=== PATIENT | female | born 1945 | race Caucasian/White ===

== ENCOUNTER 2017-04-09 12:32 | Inpatient (IN) | payer MEDICARE ==
[2017-04-09] MEDS ORDERED: Ketorolac 30 MG/ML SDV ONE (13:13)
[2017-04-09] MEDS ORDERED: Ketorolac 30 MG/ML SDV IVPUSH ONE (13:21)
[2017-04-09] MEDS ORDERED: Ondansetron 4 MG/2 ML SDV IVPUSH ONE (13:21)
[2017-04-09] MEDS ORDERED: Ondansetron 4 MG/2 ML SDV ONE (13:23)
[2017-04-09] MEDS ORDERED: HYDROmorphone 2 MG/ML Syringe IVPUSH ONE ×2 (16:00→16:16)
[2017-04-09] MEDS ORDERED: HYDROmorphone 2 MG/ML Syringe IV PRN (16:13)
[2017-04-09] MEDS ORDERED: Sodium Chloride 0.9% 10 ML Syringe FLUSH PRN (16:13)
[2017-04-09] MEDS ORDERED: Sodium Chloride 0.9% 500 ML IV SCH (16:15)
[2017-04-09] MEDS: Ondansetron 4 MG/2 ML SDV IV PRN ×2 (16:45→22:10)
--- NOTE | 2017-04-09 17:36 | PCM.HP ---
H&P History of Present Illness - General Date of Service: 04/09/17 Admit Problem/Dx: Admission Diagnosis/Problem Admission Diagnosis/Problem Pancreatitis Source of Information: Patient History Limitations: Reports: No Limitations - History of Present Illness Initial Comments - Free Text/Narative: This is a 71yo F who doctors in [place] here for left abdominal pain. Patient states the pain is of the left abdomen all the way down and states the pain is 10/10. She has a history of a pancreatic pseudocyst and has an appointment to obtain a stent of her Common bile duct due to narrowing. Patient states the pain is constant and does not believe it is exacerbated or improved by anything. She is allergic to multiple medications - please see faxed sheet from [place] clinic. She denies fever or chills. Duration of Symptoms: Reports: Day(s):, Getting Worse Location: Reports: Abdomen Quality: Reports: Ache Severity: Severe Improves with: Reports: None Worsens with: Reports: None Associated Symptoms: Reports: Loss of Appetite Left Lower Abdomen Pain Score (Numeric/FACES): 9 - Related Data Allergies/Adverse Reactions: Allergies Allergy/AdvReac Type Severity Reaction Status Date / Time albuterol Allergy Cannot Verified 03/03/15 22:32 Remember cephalexin monohydrate Allergy Cannot Verified 04/09/17 13:32 [From Keflex] Remember codeine Allergy Nausea and Verified 04/09/17 13:32 Vomiting morphine Allergy Difficulty Verified 04/09/17 13:32 Breathing Penicillins Allergy Cannot Verified 04/09/17 13:32 Remember rofecoxib [From Vioxx] Allergy Cannot Verified 03/03/15 22:32 Remember senna Allergy Cannot Verified 03/03/15 22:32 Remember valsartan [From Diovan] Allergy Vomiting Verified 03/03/15 22:32 Home Medications: Home Meds ALPRAZolam [Alprazolam] 1 mg PO BEDTIME 03/03/15 [History] Estrogen,Jennifer/Me-Testosterone [Estrogen-Methyltestosterone Tb] 1 mg PO DAILY [History] Lansoprazole [Lansoprazole] 30 mg PO BID 03/03/15 [History] Levothyroxine [Sythroid] 125 mcg PO DAILY 03/03/15 [History] Lisinopril [Lisinopril] 5 mg PO DAILY 03/03/15 [History] Methadone HCl [Methadone] 40 mg PO TID 03/03/15 [History] Ondansetron [Ondansetron] 4 mg PO TID 03/03/15 [History] Polyethylene Glycol 3350 [MiraLAX] 17 gm PO DAILY 03/03/15 [History] Verapamil HCl 80 mg PO TID 03/03/15 [History] Aspirin 325 mg PO DAILY 04/09/17 [History] Clindamycin HCl [Cleocin] 300 mg PO Q8H 04/09/17 [History] Doxycycline [Doxycycline Hyclate] 100 mg PO BID 04/09/17 [History] Ergocalciferol (Vitamin D2) [Vitamin D2] 50,000 units PO WEEKLY 04/09/17 [ History] Fish Oil/[place]-3 Fatty Acids [Fish Oil] 1 each PO DAILY 04/09/17 [History] Fluconazole [Diflucan] 150 mg PO BEDTIME 04/09/17 [History] Furosemide 20 mg PO DAILY 04/09/17 [History] Hyoscyamine [Hyomax-SL] 0.125 mg SL Q4H PRN 04/09/17 [History] Ibuprofen 800 mg PO Q8H PRN 04/09/17 [History] Ipratropium [place] 0.2 mg IH QID 04/09/17 [History] Ipratropium [Atrovent HFA] 12.9 gm IH Q6H PRN 04/09/17 [History] Meclizine [Antivert] 25 mg PO Q6H PRN 04/09/17 [History] Potassium Chloride 20 meq PO TID 04/09/17 [History] Sertraline [Zoloft] 100 mg PO BEDTIME 04/09/17 [History] H&P Review of Systems - Review of Systems: Review Of Systems: ROS reveals no pertinent complaints other than HPI. Exam - Exam Exam: See Below - Vital Signs Vital Signs: Last Vital Signs Temp 36.9 C 04/09/17 12:37 Pulse 69 04/09/17 12:37 Resp 22 H 04/09/17 12:37 BP 191/84 H 04/09/17 12:37 Pulse Ox 98 04/09/17 12:37 Weight: 79.742 kg - Exam General: Alert, Oriented, Cooperative, Moderate Distress HEENT: PERRLA, EOMI Neck: Supple, Trachea Midline Lungs: Clear to Auscultation, Normal Respiratory Effort Cardiovascular: Regular Rate, Regular Rhythm Abdomen: Tenderness, Hypoactive Bowel Sounds Extremities: Normal Inspection Peripheral Pulses: 1+: Dorsalis Pedis (L), Dorsalis Pedis (R) Skin: Warm, Dry, Intact Neuro Extensive - Mental Status: Alert, Oriented x3 Psychiatric: Alert, Anxious - Patient Data Result Diagrams: 04/09/17 13:49 04/09/17 13:49 *Q Meaningful Use (ADM) - VTE *Q VTE Criteria *Q: - Stroke *Q Stroke Criteria *Q: - AMI *Q AMI Criteria *Q: - Problem List (1) Pancreatitis, acute SNOMED Code(s): 369030297 ICD Code: K85.90 - ACUTE PANCREATITIS WITHOUT NECROSIS OR INFECTION, UNSP Status: Acute Current Visit: Yes (2) Renal dysfunction Status: Acute Current Visit: Yes (3) Hyponatremia SNOMED Code(s): 85628174 ICD Code: E87.1 - HYPO-OSMOLALITY AND HYPONATREMIA Status: Acute Current Visit: Yes (4) UTI (urinary tract infection) SNOMED Code(s): 66779858 ICD Code: N39.0 - URINARY TRACT INFECTION, SITE NOT SPECIFIED Status: Suspected Priority: Medium Current Visit: Yes Qualifiers: Urinary tract infection type: site unspecified Hematuria presence: without hematuria Qualified Code(s): N39.0 - Urinary tract infection, site not specified Problem List Initiated/Reviewed/Updated: Yes Orders Last 24hrs: Active Orders 24 hr Category Date Time Status Intake and Output Strict [RC] ASDIRECTED Care 04/09/17 17:27 Ordered BASIC METABOLIC PANEL,BMP [CHEM] AM Lab 04/10/17 05:11 Ordered CBC WITH AUTO DIFF [HEME] AM Lab 04/10/17 05:11 Ordered LIPASE [CHEM] Routine Lab 04/10/17 05:11 Ordered Clindamycin Phosphate [Cleocin] 600 mg Med 04/09/17 17:30 Ordered Dextrose 5% in Water 50 ml IV Q8H Docusate Sodium/Sennosides [Senna Plus] Med 04/09/17 16:13 Active 1 tab PO BID PRN HYDROmorphone [Dilaudid] Med 04/09/17 16:13 Active 0.5 mg IV Q2H PRN Ondansetron [Zofran] Med 04/09/17 16:13 Active 4 mg IV Q4H PRN Sodium Chloride 0.9% [Normal Saline] 500 ml Med 04/09/17 16:15 Active IV ASDIRECTED Sodium Chloride 0.9% [Saline Flush] Med 04/09/17 16:13 Active 10 ml FLUSH ASDIRECTED PRN Peripheral IV Insertion Adult [OM.PC] Routine Oth 04/09/17 16:13 Ordered Medication Orders Hydromorphone HCl (Dilaudid) 0.5 mg IV Q2H PRN PRN Reason: Pain (severe 7-10) Sodium Chloride (Normal Saline) 500 mls @ 999 mls/hr IV ASDIRECTED LEX Last Admin: 04/09/17 17:25 Dose: 999 mls/hr Clindamycin Phosphate 600 mg/ (Dextrose/Water) 54 mls @ 150 mls/hr IV Q8H LEX Ondansetron HCl (Zofran) 4 mg IV Q4H PRN PRN Reason: Nausea/Vomiting Senna/Docusate Sodium (Senna Plus) 1 tab PO BID PRN PRN Reason: Constipation Sodium Chloride (Saline Flush) 10 ml FLUSH ASDIRECTED PRN PRN Reason: Keep Vein Open Assessment/Plan Comment:: Patient to be admitted for pancreatitis. [place] II score of 7. We will start aggressive fluid hydration, pain management, and nausea management. Clindamycin continued IV for leukocytosis. We will culture Urine for sensitivities. Monitor labs in am for hyponatremia and repeat WBC.
[2017-04-09] MEDS: HYDROmorphone 2 MG/ML Syringe IVPUSH PRN ×2 (17:40→21:00)
[2017-04-09] MEDS: Clindamycin Phosphate 600 MG in Dextrose 5% in Water 50 ML IV SCH ×2 (17:43)
[2017-04-09] MEDS ORDERED: IPRATROPIUM IH PRN (17:49)
[2017-04-09] MEDS ORDERED: HYOSCYAMINE 0.125 MG SL PRN (17:49)
--- NOTE | 2017-04-09 17:49 | CT ---
DATE OF SERVICE: 04/09/17 CLINICAL DATA: abd pain UNENHANCED ABDOMEN AND PELVIC CT: Multislice acquisition through the abdomen and pelvis without IV or oral contrast was performed. Comparison is made to a prior abdomen and pelvic CT dated 06/18/13. There are linear densities in both lower lungs consistent with linear atelectasis or fibrosis. There is a small hernia within the left hemidiaphragm containing fat. The liver is normal size. The gallbladder is absent. There is gas within the biliary tree. Correlate with surgical or procedure history. The spleen appears normal. The pancreas is abnormal. The pancreas is normal size. There is, however, fairly extensive peripancreatic fat stranding consistent with pancreatitis. No evidence of pancreatic abscess. The right and left adrenals appear normal. The right and left kidneys demonstrate nonobstructing renal calculi bilaterally. The kidneys otherwise appear normal. No hydronephrosis or hydroureter. No evidence of ureterolithiasis. The bladder is partially fluid-filled and appears normal. There are calcifications within the pelvis that are most likely vascular. The appendix is not dilated. No evidence of appendicitis. There is a moderate amount of stool noted within the ascending and transverse colon. No free air. No free fluid. No dilated loops of bowel. No adenopathy. No aortic aneurysm. The patient is status post hysterectomy. There is a small umbilical hernia containing fat. No other significant findings. IMPRESSION: 1) Abnormal pancreas with peripancreatic fat stranding consistent with pancreatitis. 2) Status post cholecystectomy. Gas within the biliary tree. This may be related to a prior procedure or prior surgery. Correlation with the patient's history is recommended. 3) Large amount of stool noted within the ascending and transverse colon consistent with constipation. 4) Bilateral nonobstructing renal calculi. [id number] [facility]
[2017-04-09] MEDS: Verapamil 120 MG Tab.ER PO SCH (18:30)
[2017-04-09] MEDS: Meperidine PF 50 MG/ML Syringe IVPUSH PRN ×3 (19:49→23:40)
[2017-04-09] MEDS: Ketorolac 30 MG/ML SDV IVPUSH SCH (19:50)
[2017-04-09] MEDS ORDERED: VERAPAMIL HCL 80 MG PO SCH (20:00)
[2017-04-09] MEDS ORDERED: Sertraline 100 MG Tab PO SCH (20:00)
[2017-04-09] MEDS ORDERED: ALPRAZOLAM 1 MG PO SCH (20:00)
[2017-04-09] MEDS ORDERED: ALPRAZolam 0.25 MG Tab ONE (20:56)
[2017-04-09] MEDS ORDERED: Potassium Chloride 20 MEQ Tab.ER ONE (20:56)
[2017-04-09] MEDS ORDERED: Acetaminophen 500 MG Tab PO PRN (21:00)
[2017-04-09] MEDS: LANSOPRAZOLE 30 MG PO SCH (21:09)
[2017-04-09] MEDS: Doxycycline 100 MG Cap PO SCH (21:09)
[2017-04-09] MEDS: Ipratropium 0.02% 0.5 MG/2.5 ML Neb Soln INH SCH (21:09)
[2017-04-09] MEDS: Non-Formulary Medication 1 Each (Potassium Chloride [Potassium Chloride] 20 MEQ) PO SCH (21:10)
[2017-04-09] MEDS ORDERED: Acetaminophen 500 MG Tab ONE (21:14)
[2017-04-09] MEDS: Sodium Chloride 0.9% 1,000 ML IV SCH (22:30)
[2017-04-10] MEDS: HYDROmorphone 2 MG/ML Syringe IVPUSH PRN (00:13)
[2017-04-10] MEDS: Sodium Chloride 0.9% 1,000 ML IV SCH ×3 (00:15→04:31)
[2017-04-10] MEDS: Ketorolac 30 MG/ML SDV IVPUSH SCH ×3 (00:55→12:15)
[2017-04-10] MEDS ORDERED: HYDROmorphone 4 MG/ML Syringe ONE (01:36)
[2017-04-10] MEDS ORDERED: HYDROmorphone/Normal Saline 15 MG/30 ML PCA IV SCH (02:00)
[2017-04-10] MEDS: Clindamycin Phosphate 600 MG in Dextrose 5% in Water 50 ML IV SCH ×4 (02:41→12:17)
[2017-04-10] MEDS: Ondansetron 4 MG/2 ML SDV IV PRN ×3 (03:10→10:15)
[2017-04-10] MEDS ORDERED: Metoclopramide 10 MG/2 ML SDV ONE (06:43)
[2017-04-10] MEDS ORDERED: Simethicone 80 MG Tab.Chew ONE (06:44)
[2017-04-10] MEDS ORDERED: Simethicone 80 MG Tab.Chew PO ONE (07:02)
[2017-04-10] MEDS ORDERED: Levothyroxine 100 MCG Tab PO SCH (08:00)
[2017-04-10] MEDS ORDERED: ESTROGEN ESTER PO SCH (08:00)
[2017-04-10] MEDS ORDERED: Polyethylene Glycol 3350 Powder 510 GM Bot PO SCH (08:00)
[2017-04-10] MEDS ORDERED: TESTOSTERONE PO SCH (08:00)
[2017-04-10] MEDS ORDERED: [UNRECOGNIZED DRUG - OTHER] PO SCH (08:00)
[2017-04-10] MEDS ORDERED: Furosemide 20 MG Tab PO SCH (08:00)
[2017-04-10] MEDS ORDERED: Lisinopril 5 MG Tab PO SCH (08:00)
[2017-04-10] MEDS ORDERED: Fish Oil/Omega-3 Fatty Acids 1 Gm Cap PO SCH (08:00)
[2017-04-10] MEDS ORDERED: Non-Formulary Medication 1 Each (Aspirin [Aspirin] 325 MG) PO SCH (08:00)
[2017-04-10] MEDS ORDERED: Verapamil 120 MG Tab.ER ONE (08:09)
[2017-04-10] MEDS ORDERED: Potassium Chloride 20 MEQ Tab.ER ONE (08:10)
[2017-04-10] MEDS ORDERED: Aspirin 325 MG Tab.EC ONE (08:10)
[2017-04-10] MEDS: Verapamil 120 MG Tab.ER PO SCH (08:32)
[2017-04-10] MEDS: Doxycycline 100 MG Cap PO SCH (08:32)
[2017-04-10] MEDS ORDERED: HYDROmorphone 2 MG/ML Syringe ONE (10:04)
[2017-04-10] MEDS ORDERED: Metoclopramide 10 MG/2 ML SDV IVPUSH ONE (10:50)
[2017-04-10] MEDS: Ipratropium 0.02% 0.5 MG/2.5 ML Neb Soln INH SCH ×2 (11:13→14:46)
[2017-04-10] MEDS ORDERED: Promethazine 12.5 MG in Sodium Chloride 0.9% 50 ML IV PRN (11:25)
[2017-04-10] MEDS: Non-Formulary Medication 1 Each (Potassium Chloride [Potassium Chloride] 20 MEQ) PO SCH (12:17)
[2017-04-10] MEDS: LANSOPRAZOLE 30 MG PO SCH (12:19)
[2017-04-10] MEDS ORDERED: Ketorolac 30 MG/ML SDV IVPUSH ONE (12:29)
[2017-04-10 12:34] VITALS: BP 120/78
--- NOTE | 2017-04-10 12:35 | PCM.DCSUM1 ---
Discharge Summary - Hospital Course Brief History: This is a 71yo F who was admitted for acute pancreatitis. Patient showed improvement of Lipase level but worsening of WBC with clinically worsening symptoms and pain despite increasing amounts of pain control. - Discharge Data Discharge Date: 04/10/17 Discharge Disposition: DC/Tfer to Acute Hospital 02 Condition: Serious - Discharge Diagnosis/Problem(s) (1) Pancreatitis, acute SNOMED Code(s): 487360713 ICD Code: K85.90 - ACUTE PANCREATITIS WITHOUT NECROSIS OR INFECTION, UNSP Status: Acute Priority: High Current Visit: Yes Qualifiers: Acute pancreatitis complication: infected necrosis (2) Renal dysfunction Status: Resolved Priority: Medium Current Visit: Yes (3) Hyponatremia SNOMED Code(s): 16391735 ICD Code: E87.1 - HYPO-OSMOLALITY AND HYPONATREMIA Status: Resolved Priority: Medium Current Visit: Yes (4) UTI (urinary tract infection) SNOMED Code(s): 65371194 ICD Code: N39.0 - URINARY TRACT INFECTION, SITE NOT SPECIFIED Status: Suspected Priority: Medium Current Visit: Yes Qualifiers: Urinary tract infection type: site unspecified Hematuria presence: without hematuria Qualified Code(s): N39.0 - Urinary tract infection, site not specified - Patient Instructions Diet: NPO - Discharge Plan Home Medications: Home Meds ALPRAZolam [Alprazolam] 1 mg PO BEDTIME 03/03/15 [History] Estrogen,Jennifer/Me-Testosterone [Estrogen-Methyltestosterone Tb] 1 mg PO DAILY [History] Lansoprazole [Lansoprazole] 30 mg PO BID 03/03/15 [History] Levothyroxine [Sythroid] 125 mcg PO DAILY 03/03/15 [History] Lisinopril [Lisinopril] 5 mg PO DAILY 03/03/15 [History] Methadone HCl [Methadone] 40 mg PO TID 03/03/15 [History] Ondansetron [Ondansetron] 4 mg PO TID 03/03/15 [History] Polyethylene Glycol 3350 [MiraLAX] 17 gm PO DAILY 03/03/15 [History] Verapamil HCl 80 mg PO TID 03/03/15 [History] Aspirin 325 mg PO DAILY 04/09/17 [History] Clindamycin HCl [Cleocin] 300 mg PO Q8H 04/09/17 [History] Doxycycline [Doxycycline Hyclate] 100 mg PO BID 04/09/17 [History] Ergocalciferol (Vitamin D2) [Vitamin D2] 50,000 units PO WEEKLY 04/09/17 [ History] Fish Oil/[place]-3 Fatty Acids [Fish Oil] 1 each PO DAILY 04/09/17 [History] Fluconazole [Diflucan] 150 mg PO BEDTIME 04/09/17 [History] Furosemide 20 mg PO DAILY 04/09/17 [History] Hyoscyamine [Hyomax-SL] 0.125 mg SL Q4H PRN 04/09/17 [History] Ibuprofen 800 mg PO Q8H PRN 04/09/17 [History] Ipratropium [place] 0.2 mg IH QID 04/09/17 [History] Ipratropium [Atrovent HFA] 12.9 gm IH Q6H PRN 04/09/17 [History] Meclizine [Antivert] 25 mg PO Q6H PRN 04/09/17 [History] Potassium Chloride 20 meq PO TID 04/09/17 [History] Sertraline [Zoloft] 100 mg PO BEDTIME 04/09/17 [History] Forms: ED Department Discharge, Return to Work/School Form Referrals: Sania Downs MD [Primary Care Provider] - - Discharge Summary/Plan Comment DC Time >30 min.: Yes Discharge Summary/Plan Comment: Patient transfer planning. [facility] refused transfer as they do not have GI surgery available. [facility] accepting Dr. Cox. Patient and counseled on transfer and concerns of increasing abdominal pain with possible pancreatic necrosis. Ativan to be given prior to departure as patient is very anxious and fears flying but agrees to flight. - Patient Data Vitals - Most Recent: Last Vital Signs Temp 35.5 C 04/10/17 08:00 Pulse 83 04/10/17 08:32 Resp 16 04/10/17 08:00 BP 127/50 L 04/10/17 08:34 Pulse Ox 99 04/10/17 08:00 Weight - Most Recent: 79.742 kg I&O - Last 24 hours: Intake & Output 04/09/17 04/10/17 04/10/17 22:59 06:59 14:59 Intake Total 30 4450 Output Total 2050 Balance 30 2400 Lab Results - Last 24 hrs: Laboratory Results - last 24 hr 04/10/17 04/10/17 Range/Units 07:10 07:10 WBC 30.6 H* (4.0-11.0) K/uL RBC 3.61 L (3.80-5.80) M/uL Hgb 11.5 (11.5-16.5) g/dL Hct 33.9 L (37.0-47.0) % MCV 94 (76-96) fL MCH 31.9 (27.0-32.0) pg MCHC 33.9 (31.0-35.0) g/dL RDW 14.6 (11.0-16.0) % Plt Count 166 D (150-500) K/uL MPV 8.6 (6.0-10.0) fL Neut % (Auto) 91.1 H (45.0-70.0) % Lymph % (Auto) 3.4 L (20.0-40.0) % [place] % (Auto) 4.6 (3.0-10.0) % Eos % (Auto) 0.8 L (1.0-5.0) % Baso % (Auto) 0.1 (0.0-0.5) % Neut # (Auto) 27.80 H (2.00-7.50) K/uL Lymph # (Auto) 1.05 L (1.50-4.00) K/uL [place] # (Auto) 1.42 H (0.20-0.80) K/uL Eos # (Auto) 0.25 (0.04-0.40) K/uL Baso # (Auto) 0.03 (0.02-0.10) K/uL Sodium 142 (136-145) mmol/L Potassium 3.8 (3.5-5.1) mmol/L Chloride 112 H (98-107) mmol/L Carbon Dioxide 20.4 L (21.0-32.0) mmol/L Anion Gap 13.4 (5.0-15.0) mmol/L BUN 16 D (8-26) mg/dL Creatinine 0.85 D (0.55-1.02) mg/dL Est Cr Clr Drug Dosing 50.22 mL/min Estimated GFR (MDRD) > 60 (>60) MLS/MIN BUN/Creatinine Ratio 18.8 (6-25) Glucose 75 D (74-100) mg/dL Calcium 7.5 L (8.5-10.1) mg/dL Magnesium 1.4 L (1.8-2.4) mg/dL Lipase 3245 H* D (73-393) U/L Med Orders - Current: Current Medications Acetaminophen (Tylenol Extra Strength) 1,000 mg PO Q4H PRN PRN Reason: Fever Last Admin: 04/09/17 22:00 Dose: 1,000 mg Alprazolam (Xanax) 1 mg PO BEDTIME [facility] Doxycycline Hyclate (Vibramycin) 100 mg PO BID [facility] Last Admin: 04/10/17 08:32 Dose: 100 mg Ergocalciferol (Vitamin D2) 50,000 units PO Q7D [facility] Fish Oil (Fish Oil) 1 gm PO DAILY [facility] Last Admin: 04/10/17 08:33 Dose: 1 gm Furosemide (Lasix) 20 mg PO DAILY [facility] Last Admin: 04/10/17 08:32 Dose: 20 mg Hydromorphone HCl (Dilaudid [place] 15 Mg In Ns 30 Ml) 0 mg IV ASDIRECTED [facility] PRN Reason: Protocol Last Admin: 04/10/17 02:14 Dose: 0.5 mg Clindamycin Phosphate 600 mg/ (Dextrose/Water) 54 mls @ 150 mls/hr IV Q8H [facility] Last Admin: 04/10/17 12:17 Dose: Not Given Sodium Chloride (Normal Saline) 1,000 mls @ 500 mls/hr IV ASDIRECTED [facility] Last Infusion: 04/10/17 08:47 Dose: Infused Promethazine HCl 12.5 mg/ (Sodium Chloride) 50.5 mls @ 200 mls/hr IV Q6H PRN PRN Reason: Nausea/Vomiting Last Admin: 04/10/17 11:42 Dose: 200 mls/hr Ipratropium [place] (Atrovent) 0.2 mg INH QID [facility] Last Admin: 04/10/17 11:13 Dose: Not Given Ketorolac Tromethamine (Toradol) 30 mg IVPUSH Q6H [facility] Stop: 04/14/17 18:30 Last Admin: 04/10/17 12:15 Dose: 30 mg Levothyroxine Sodium (Synthroid) 125 mcg PO DAILY [facility] Last Admin: 04/10/17 08:25 Dose: 125 mcg Lisinopril (Prinivil) 5 mg PO DAILY [facility] Last Admin: 04/10/17 08:34 Dose: 5 mg Meclizine HCl (Antivert) 25 mg PO Q6H PRN PRN Reason: Dizziness Meperidine HCl (Demerol) 50 mg IVPUSH Q2H PRN PRN Reason: Pain Last Admin: 04/09/17 23:40 Dose: 37 mg Non-Formulary Medication (Aspirin [Aspirin]) 325 mg PO DAILY [facility] Last Admin: 04/10/17 08:34 Dose: 325 mg Non-Formulary Medication (Estrogen,Jennifer/Me-Testosterone [Estrogen- Methyltestosterone Tb]) 1 mg PO DAILY [facility] Last Admin: 04/10/17 12:17 Dose: Not Given Non-Formulary Medication (Hyoscyamine [Hyomax-Sl]) 0.125 mg SL Q4H PRN PRN Reason: Cramping Non-Formulary Medication (Potassium Chloride [Potassium Chloride]) 20 meq PO TID [facility] Last Admin: 04/10/17 12:17 Dose: Not Given Omeprazole (Omeprazole) 40 mg PO BID [facility] Ondansetron HCl (Zofran) 4 mg IV Q4H PRN PRN Reason: Nausea/Vomiting Last Admin: 04/10/17 10:15 Dose: 4 mg Polyethylene Glycol (Miralax) 17 gm PO DAILY [facility] Last Admin: 04/10/17 12:17 Dose: Not Given Senna/Docusate Sodium (Senna Plus) 1 tab PO BID PRN PRN Reason: Constipation Sertraline HCl (Zoloft) 100 mg PO BEDTIME [facility] Last Admin: 04/09/17 21:09 Dose: 100 mg Sodium Chloride (Saline Flush) 10 ml FLUSH ASDIRECTED PRN PRN Reason: Keep Vein Open Last Admin: 04/09/17 17:05 Dose: 10 ml Verapamil HCl ([place] Sr) 120 mg PO DAILY [facility] Last Admin: 04/10/17 08:32 Dose: 120 mg Discontinued Medications Acetaminophen (Tylenol Extra Strength) Confirm Administered Dose 1,000 mg .ROUTE .ST-MED ONE Stop: 04/09/17 21:15 Last Admin: 04/09/17 22:06 Dose: Not Given Alprazolam (Xanax) Confirm Administered Dose 1 mg .ROUTE .STK-MED ONE Stop: 04/09/17 20:57 Last Admin: 04/09/17 22:05 Dose: Not Given Aspirin (Ecotrin) Confirm Administered Dose 325 mg .ROUTE .STK-MED ONE Stop: 04/10/17 08:11 Last Admin: 04/10/17 08:34 Dose: 325 mg Hydromorphone HCl (Dilaudid) 0.5 mg IV Q2H PRN PRN Reason: Pain (severe 7-10) Hydromorphone HCl (Dilaudid) 1 mg IVPUSH ONETIME ONE Stop: 04/09/17 16:17 Last Admin: 04/09/17 16:34 Dose: 1 mg Hydromorphone HCl (Dilaudid) 0 mg IVPUSH ONETIME ONE Stop: 04/09/17 16:01 Last Admin: 04/09/17 17:00 Dose: 2 mg Hydromorphone HCl (Dilaudid) 2 mg IVPUSH Q2H PRN PRN Reason: Pain Last Admin: 04/10/17 00:13 Dose: 2 mg Hydromorphone HCl (Dilaudid) Confirm Administered Dose 16 mg .ROUTE .STK-MED ONE Stop: 04/10/17 01:37 Last Admin: 04/10/17 02:27 Dose: Not Given Hydromorphone HCl (Dilaudid) Confirm Administered Dose 2 mg .ROUTE .STK-MED ONE Stop: 04/10/17 10:05 Last Admin: 04/10/17 10:21 Dose: 2 mg Sodium Chloride (Normal Saline) 500 mls @ 999 mls/hr IV ASDIRECTED [facility] Last Admin: 04/09/17 17:25 Dose: 999 mls/hr Ketorolac Tromethamine (Toradol) Confirm Administered Dose 30 mg .ROUTE .STK- MED ONE Stop: 04/09/17 13:14 Last Admin: 04/09/17 13:23 Dose: Not Given Ketorolac Tromethamine (Toradol) 30 mg IVPUSH ONETIME ONE Stop: 04/09/17 13:22 Last Admin: 04/09/17 13:15 Dose: 30 mg Metoclopramide HCl (Reglan) Confirm Administered Dose 10 mg .ROUTE .STK-MED ONE Stop: 04/10/17 06:44 Last Admin: 04/10/17 07:03 Dose: Not Given Metoclopramide HCl (Reglan) 10 mg IVPUSH ONETIME ONE Stop: 04/10/17 10:51 Last Admin: 04/10/17 11:01 Dose: 10 mg Non-Formulary Medication (Alprazolam [Alprazolam]) 1 mg PO BEDTIME [facility] Last Admin: 04/09/17 21:09 Dose: 0.5 mg Non-Formulary Medication (Lansoprazole [Lansoprazole]) 30 mg PO BID [facility] Last Admin: 04/10/17 12:19 Dose: Not Given Non-Formulary Medication (Verapamil Hcl [Verapamil Hcl]) 80 mg PO TID LEX Ondansetron HCl (Zofran) 8 mg IVPUSH ONETIME ONE Stop: 04/09/17 13:22 Last Admin: 04/09/17 13:23 Dose: 8 mg Ondansetron HCl (Zofran) Confirm Administered Dose 8 mg .ROUTE .STK-MED ONE Stop: 04/09/17 13:24 Last Admin: 04/09/17 13:23 Dose: Not Given Potassium Chloride (Klor-Con M20) Confirm Administered Dose 20 meq .ROUTE .STK- MED ONE Stop: 04/09/17 20:57 Last Admin: 04/09/17 22:05 Dose: Not Given Potassium Chloride (Klor-Con M20) Confirm Administered Dose 20 meq .ROUTE .STK- MED ONE Stop: 04/10/17 08:11 Last Admin: 04/10/17 12:17 Dose: Not Given Simethicone (Simethicone) Confirm Administered Dose 80 mg .ROUTE .STK-MED ONE Stop: 04/10/17 06:45 Last Admin: 04/10/17 07:03 Dose: Not Given Simethicone (Simethicone) 80 mg PO ONETIME ONE Stop: 04/10/17 07:03 Last Admin: 04/10/17 08:26 Dose: 80 mg Verapamil HCl ([place] Sr) Confirm Administered Dose 120 mg .ROUTE .STK-MED ONE Stop: 04/10/17 08:10 Last Admin: 04/10/17 08:35 Dose: Not Given *Q Meaningful Use (DIS) - VTE *Q VTE Criteria *Q: - Stroke *Q Stroke Criteria *Q: - AMI *Q AMI Criteria *Q:
[2017-04-10] MEDS ORDERED: LORazepam 2 MG/ML MDV ONE (12:40)
[2017-04-10] MEDS ORDERED: Omeprazole 40 MG Cap.CR PO SCH (20:00)
[2017-04-10] MEDS ORDERED: ALPRAZolam 0.25 MG Tab PO SCH (20:00)
[2017-04-15] MEDS ORDERED: Ergocalciferol (Vitamin D2) 50,000 Unit Cap PO SCH (09:00)
== END 2017-04-10 13:10 | DRG 439 ==
LOC: LB.ED 12:32 → LB.MS 15:22 → UNDOADMIN 15:22 → LB.MS 16:08
PROVIDERS: ADMIT Family Medicine; ATTEND Family Medicine
DX: K85.90 Acute pancreatitis without necrosis or infection, unspecified (principal); K85.91 Acute pancreatitis with uninfected necrosis, unspecified; E87.1 Hypo-osmolality and hyponatremia; N39.0 Urinary tract infection, site not specified; N28.9 Disorder of kidney and ureter, unspecified; F41.9 Anxiety disorder, unspecified; Z88.1 Allergy status to other antibiotic agents; Z88.5 Allergy status to narcotic agent; Z88.0 Allergy status to penicillin; Z88.8 Allergy status to other drugs, medicaments and biological substances
CPT/HCPCS: 36415; 74176; 80053; 81001; 83615; 83690; 84443; 84484; 85025; 87086; J1885; J2405; 80048; 83735; 87040; 96374; 96375; 96376; 99285-25; A9270-GY; J1170; J2060; J2175; J2550; J2765; J7040; J7050; J7060; S0077

== ENCOUNTER 2018-05-11 09:19 | Inpatient (IN) | payer MEDICARE ==
[2018-05-12] MEDS ORDERED: HYOSCYAMINE 0.125 MG SL PRN (16:57)
[2018-05-12] MEDS ORDERED: [UNRECOGNIZED DRUG - MIXTURE] MM PRN (16:57)
[2018-05-12] MEDS ORDERED: IPRATROPIUM IH PRN (16:57)
[2018-05-12] MEDS ORDERED: BETAMETHASONE TOP PRN (16:57)
[2018-05-12] MEDS ORDERED: CLOTRIMAZOLE TOP PRN (16:57)
[2018-05-12] MEDS ORDERED: Ergocalciferol (Vitamin D2) 50,000 Unit Cap PO SCH (17:00)
--- NOTE | 2018-05-12 17:00 | PCM.HP ---
H&P History of Present Illness - General Date of Service: 05/12/18 Admit Problem/Dx: Admission Diagnosis/Problem Admission Diagnosis/Problem Weakness This is a 72yo F who fell at home and fractured her right femur neck. She was transferred to [facility] and was surgically evaluated and treated by Orthopedics () and then transferred back for subacute rehabilitation. - History of Present Illness Duration of Symptoms: Reports: Constant Location: Reports: Lower Extremity, Right Associated Symptoms: Reports: No Other Symptoms Right Hip Pain Score (Numeric/FACES): 5 Right Leg Pain Score (Numeric/FACES): 8 - Related Data Allergies/Adverse Reactions: Allergies Allergy/AdvReac Type Severity Reaction Status Date / Time albuterol Allergy Cannot Verified 05/06/18 18:19 Remember azithromycin Allergy Hives Verified 05/12/18 10:10 Beta-Adrenergic Agents Allergy Hives, Verified 05/12/18 10:12 wheezing/bronchospasm budesonide Allergy Tachycardia, Verified 05/12/18 10:14 cough bupropion Allergy unknown Verified 05/12/18 10:26 buspirone [From BuSpar] Allergy unknown Verified 05/12/18 10:27 cephalexin monohydrate Allergy Other Verified 05/12/18 10:16 [From Keflex] clarithromycin [From Biaxin] Allergy Edema Verified 05/12/18 10:25 codeine Allergy Nausea and Verified 05/06/18 18:19 Vomiting duloxetine Allergy Other Verified 05/12/18 10:15 fentanyl [From Duragesic] Allergy Other Verified 05/12/18 10:29 gabapentin Allergy Other Verified 05/12/18 10:17 hydromorphone [From Dilaudid] Allergy unknown Verified 05/12/18 10:30 hylan G-F 20 Allergy Other Verified 05/12/18 10:19 methylprednisolone Allergy Tachycardia Verified 05/12/18 10:31 mirtazapine Allergy unknown Verified 05/12/18 10:32 morphine Allergy Difficulty Verified 05/06/18 18:19 Breathing neomycin Allergy Hives Verified 05/12/18 10:12 olanzapine Allergy unknown Verified 05/12/18 10:33 Penicillins Allergy Cannot Verified 05/06/18 18:19 Remember pregabalin Allergy Other Verified 05/12/18 10:22 rofecoxib [From Vioxx] Allergy Cannot Verified 05/06/18 18:19 Remember senna Allergy Cannot Verified 05/06/18 18:19 Remember sulfamethoxazole Allergy unknown Verified 05/12/18 10:35 tiotropium Allergy Tachycardia Verified 05/12/18 10:34 [From Spiriva with HandiHaler] trimethoprim Allergy unknown Verified 05/12/18 10:37 valsartan [From Diovan] Allergy Vomiting Verified 05/06/18 18:19 zolpidem [From Ambien] Allergy unkown Verified 05/12/18 10:25 zinc oratate Allergy Other Uncoded 05/12/18 10:24 Home Medications: Home Meds ALPRAZolam [Alprazolam] 1 mg PO QID PRN 03/03/15 [History] Lansoprazole 30 mg PO BID 03/03/15 [History] Levothyroxine [Sythroid] 125 mcg PO DAILY 03/03/15 [History] Lisinopril 5 mg PO DAILY 03/03/15 [History] Methadone HCl [Methadone] 40 mg PO BID PRN 03/03/15 [History] Ondansetron 8 mg PO TID PRN 03/03/15 [History] Polyethylene Glycol 3350 [MiraLAX] 17 gm PO QPM 03/03/15 [History] Verapamil HCl 80 mg PO TID 03/03/15 [History] Hyoscyamine [Hyomax-SL] 0.125 mg SL Q4H PRN 04/09/17 [History] Ipratropium [Atrovent HFA] 12.9 gm IH Q6H PRN 04/09/17 [History] Meclizine [Antivert] 25 mg PO Q6H PRN 04/09/17 [History] Potassium Chloride 20 meq PO DAILY 04/09/17 [History] Sertraline [Zoloft] 150 mg PO BEDTIME 04/09/17 [History] Fluconazole [Diflucan] 150 mg PO DAILY 05/06/18 [History] Betamethasone/Clotrimazole [Lotrisone] 15 gm TOP BID PRN 05/12/18 [History] Calcium Carb/Vit D3/Minerals [Calcium 600+D Plus Minerals] 400 mg PO DAILY 05/12 [History] Diphenhyd/Lidocaine/MagAl/Jeny [First-Mouthwash BLM Susp] 237 ml MM TID PRN [History] Enoxaparin [Lovenox] 40 mg SUBCUT DAILY 05/12/18 [History] Ergocalciferol (Vitamin D2) [Drisdol] 50,000 unit PO WEEKLY 05/12/18 [History] Naloxone HCl [Narcan] 4 mg NS ASDIRECTED PRN 05/12/18 [History] Past Medical History HEENT History: Reports: Cataract Other HEENT History: currently has oral fungal infection Cardiovascular History: Reports: Arrhythmia, Other (See Below) Other Cardiovascular History: tachycardia, leaky heart valve. Respiratory History: Reports: Asthma, COPD Gastrointestinal History: Reports: Other (See Below) Other Gastrointestinal History: stones in bile duct Genitourinary History: Reports: Other (See Below) Other Genitourinary History: hx of inabilty to void and self cathaterization COTTON FACTOR History: Reports: Musculoskeletal History: Reports: Fibromyalgia Psychiatric History: Reports: Depression Endocrine/Metabolic History: Reports: Hypothyroidism Oncologic (Cancer) History: Reports: Basal Cell Carcinoma Dermatologic History: Reports: Other (See Below) Other Dermatologic History: easily bruises, - Infectious Disease History Infectious Disease History: Reports: Chicken Pox, Shingles - Past Surgical History HEENT Surgical History: Reports: None GI Surgical History: Reports: Cholecystectomy Female Surgical History: Reports: Hysterectomy Social & Family History - Family History Family Medical History: Noncontributory H&P Review of Systems - Review of Systems: Review Of Systems: ROS reveals no pertinent complaints other than HPI. Exam - Exam Exam: See Below - Exam General: Alert, Oriented, Cooperative HEENT: PERRLA Neck: Supple, Trachea Midline Lungs: Clear to Auscultation, Normal Respiratory Effort Cardiovascular: Regular Rate, Regular Rhythm GI/Abdominal Exam: Normal Bowel Sounds, Soft, Non-Tender Back Exam: Normal Inspection Extremities: Leg Pain Skin: Warm, Dry, Intact Neurological: Cranial Nerves Intact, Reflexes Equal Bilateral Neuro Extensive - Mental Status: Alert, Oriented x3, Normal Mood/Affect - Patient Data Result Diagrams: 05/25/18 17:00 05/25/18 17:00 - Problem List (1) Weakness SNOMED Code(s): 26956796 ICD Code: R53.1 - WEAKNESS Status: Acute Priority: High Current Visit: Yes (2) Subcapital fracture of neck of right femur SNOMED Code(s): 194055964 ICD Code: S72.011A - UNSP INTRACAPSULAR FRACTURE OF RIGHT FEMUR, INIT FOR CLOS FX Status: Acute Priority: High Current Visit: Yes Qualifiers: Encounter type: initial encounter Fracture type: closed Qualified Code(s) : S72.011A - Unspecified intracapsular fracture of right femur, initial encounter for closed fracture Problem List Initiated/Reviewed/Updated: Yes Orders Last 24hrs: Active Orders 24 hr Category Date Time Status Patient Status [ADT] Routine ADT 05/12/18 16:56 Ordered Consult to Home Health [CONS] Routine Cons 05/12/18 16:56 Ordered OT Evaluation and Treatment [CONS] Routine Cons 05/12/18 16:56 Ordered PT Evaluation and Treatment [CONS] Routine Cons 05/12/18 16:56 Ordered ALPRAZolam [Alprazolam] Med 05/12/18 16:57 Ordered 1 mg PO QID PRN Betamethasone/Clotrimazole [Lotrisone] Med 05/12/18 16:57 Ordered 15 gm TOP BID PRN Calcium Carb/Vit D3/Minerals [Calcium 600+D Plus Med 05/13/18 08:00 Ordered Minerals] 400 mg PO DAILY Diphenhyd/Lidocaine/MagAl/Jeny [First-Mouthwash BLM Med 05/12/18 16:57 Ordered Susp] 237 ml MM TID PRN Enoxaparin [Lovenox] Med 05/13/18 08:00 Ordered 40 mg SUBCUT DAILY Ergocalciferol (Vitamin D2) [Vitamin D2] Med 05/12/18 17:00 Ordered 50,000 units PO WEEKLY Fluconazole [Diflucan] Med 05/13/18 08:00 Ordered 150 mg PO DAILY Hyoscyamine [Hyomax-SL] Med 05/12/18 16:57 Ordered 0.125 mg SL Q4H PRN Ipratropium [Atrovent HFA] Med 05/12/18 16:57 Ordered 12.9 gm IH Q6H PRN Lansoprazole [Lansoprazole] Med 05/12/18 20:00 Ordered 30 mg PO BID Levothyroxine [Synthroid] Med 05/13/18 08:00 Ordered 125 mcg PO DAILY Lisinopril [Prinivil] Med 05/13/18 08:00 Ordered 5 mg PO DAILY Meclizine [Antivert] Med 05/12/18 16:57 Ordered 25 mg PO Q6H PRN Methadone HCl [Methadone] Med 05/12/18 16:57 Ordered 40 mg PO BID PRN Ondansetron [Ondansetron] Med 05/12/18 16:57 Ordered 8 mg PO TID PRN Polyethylene Glycol 3350 [MiraLAX] Med 05/12/18 20:00 Ordered 17 gm PO QPM Potassium Chloride [Potassium Chloride] Med 05/13/18 08:00 Ordered 20 meq PO DAILY Sertraline [Zoloft] Med 05/12/18 20:00 Ordered 150 mg PO BEDTIME Tuberculin, PPD [Aplisol] Med 05/12/18 16:56 Once 5 unit IDERM ONETIME ONE Verapamil [Calan] Med 05/12/18 20:00 Ordered 80 mg PO TID Resuscitation Status Routine Resus Stat 05/12/18 16:56 Ordered Medication Orders Tuberculin PPD (Aplisol) 5 unit IDERM ONETIME ONE Stop: 05/12/18 16:57 Assessment/Plan Comment:: Patient admitted to Swing bed for subacute rehab with PT/OT and f/u with Orthopedics as scheduled. We will continue pain management.
[2018-05-12] MEDS: Methadone 10 MG Tab PO PRN (21:30)
[2018-05-12] MEDS: Sertraline 50 MG Tab PO SCH (21:30)
[2018-05-12] MEDS: Verapamil 80 MG Tab PO SCH (21:30)
[2018-05-12] MEDS: Polyethylene Glycol 3350 Powder 17 GM Packet PO SCH (21:30)
[2018-05-12] MEDS ORDERED: HYDROmorphone 2 MG/ML SDV ONE (21:38)
[2018-05-12] MEDS: ALPRAZolam 0.25 MG Tab PO PRN (21:50)
[2018-05-12] MEDS ORDERED: HYDROmorphone 2 MG/ML Syringe SUBCUT ONE (21:50)
[2018-05-13] MEDS ORDERED: Levothyroxine 100 MCG Tab PO SCH (07:00)
[2018-05-13] MEDS ORDERED: Enoxaparin 40 MG/0.4 ML Syringe SUBCUT SCH (08:00)
[2018-05-13] MEDS: Levothyroxine 25 MCG Tab PO SCH (08:30)
[2018-05-13] MEDS: Lisinopril 5 MG Tab PO SCH (08:30)
[2018-05-13] MEDS: Verapamil 80 MG Tab PO SCH ×3 (08:30→20:17)
[2018-05-13] MEDS: Potassium Chloride 20 MEQ Tab.ER PO SCH (08:30)
[2018-05-13] MEDS: Calcium Carbonate/Vitamin D3 1500 MG-400 Units Tab PO SCH (08:31)
[2018-05-13] MEDS: Fluconazole 150 MG Tab PO SCH (08:31)
[2018-05-13] MEDS: Pantoprazole 40 MG Tab.CR PO SCH ×2 (08:31→20:17)
[2018-05-13] MEDS: Levothyroxine 100 MCG Tab PO SCH (08:32)
[2018-05-13] MEDS: Methadone 10 MG Tab PO PRN ×2 (08:50→20:18)
[2018-05-13] MEDS ORDERED: Ipratropium 0.02% 0.5 MG/2.5 ML Neb Soln INH SCH (09:00)
[2018-05-13] MEDS ORDERED: HYDROmorphone 4 MG/ML Syringe SUBCUT PRN (09:57)
[2018-05-13] MEDS ORDERED: HYDROmorphone 2 MG/ML SDV IV PRN (10:50)
[2018-05-13] MEDS ORDERED: HYDROmorphone 2 MG/ML SDV SUBCUT PRN ×2 (10:51→14:51)
[2018-05-13] MEDS: Acetaminophen/HYDROcodone 325-10 MG Tab PO PRN ×2 (12:40→21:32)
[2018-05-13] MEDS: Tuberculin, PPD 5 Units/0.1 ML 1 ML MDV IDERM ONE ×2 (17:41→17:49)
[2018-05-13] MEDS: Sertraline 50 MG Tab PO SCH (20:17)
[2018-05-13] MEDS: Polyethylene Glycol 3350 Powder 17 GM Packet PO SCH (20:17)
[2018-05-14] MEDS: Acetaminophen/HYDROcodone 325-10 MG Tab PO PRN ×3 (01:57→13:36)
[2018-05-14] MEDS: ALPRAZolam 0.25 MG Tab PO PRN ×2 (01:57→23:56)
[2018-05-14] MEDS: Pantoprazole 40 MG Tab.CR PO SCH ×2 (08:02→20:27)
[2018-05-14] MEDS: Calcium Carbonate/Vitamin D3 1500 MG-400 Units Tab PO SCH (08:02)
[2018-05-14] MEDS: Lisinopril 5 MG Tab PO SCH (08:02)
[2018-05-14] MEDS: Potassium Chloride 20 MEQ Tab.ER PO SCH (08:03)
[2018-05-14] MEDS: Levothyroxine 100 MCG Tab PO SCH (08:03)
[2018-05-14] MEDS: Enoxaparin 40 MG/0.4 ML Syringe SUBCUT SCH (08:04)
[2018-05-14] MEDS: Fluconazole 150 MG Tab PO SCH (08:04)
[2018-05-14] MEDS: Levothyroxine 25 MCG Tab PO SCH (08:04)
[2018-05-14] MEDS: Verapamil 80 MG Tab PO SCH ×3 (08:04→20:27)
--- NOTE | 2018-05-14 09:14 | CT ---
DATE OF SERVICE: 05/13/18 CLINICAL DATA: Lump posterior to right chest UNENHANCED CHEST CT: Multislice acquisition through the chest without IV contrast was performed. Comparison is made to a prior unenhanced chest CT dated 09/19/17. There is a 7 mm oval-shaped nodule lateral to the left hilum that is unchanged from the prior exam. There are mild atelectatic changes in the left lung base. The lungs are otherwise clear. No pneumothorax. No pleural effusions. The heart size is normal. There is no pericardial effusion. No hilar or mediastinal adenopathy. There is an oval-shaped mass located within the subcutaneous fat of the right lateral chest wall inferior to the right scapula. It measures greater than 5 cm in its maximum dimension. It has fairly sharply transcribed margins. It is probably benign. The differential includes benign or malignant processes. It was not present on the prior CT. No other significant findings. UNENHANCED ABDOMEN AND PELVIC CT: Multislice acquisition through the abdomen and pelvis without IV or oral contrast was performed. Comparison is made to a prior exam dated 04/09/17. The spleen is normal size. The patient is status post cholecystectomy. There is pneumobilia, predominantly in the left lobe. It was present on the prior exam. The gallbladder is absent. The spleen appears normal. The pancreas is unremarkable. The right and left adrenals are unremarkable. There are small nonobstructing renal calculi bilaterally. The kidneys are otherwise unremarkable. The bladder is partially fluid-filled and appears normal. The patient is status post hysterectomy. There is a large amount of stool present throughout the colon. There is mild diverticulosis of the descending and sigmoid colon. No evidence of diverticulitis. There is a small fat-containing umbilical hernia. No free air. No free fluid. No dilated loops of bowel. No adenopathy. No aortic aneurysm. There is a sharply transcribed mass located in the subcutaneous fat of the right chest wall. It is inferior to the scapula. It measures greater than 5 cm in its maximum dimension. It was not present on the prior CT. It is probably benign. The differential does, however, include benign or malignant processes. [id number] MTDD
--- NOTE | 2018-05-14 11:56 | PCM.SN ---
- Free Text/Narrative Note: Discussion of pain medication use. Patient states she is on Methadone 40mg TID and has been on it for 15 years and has only had a change since she was admitted to the hospital. MNPMP shows otherwise. Called [facility] clinic and talked to Rachel and was informed that patient was recently weaned to methadone 20mg TID and she was on 30mg TID. Patient feels differently about the situation and states she will see Dr. Downs and talk to her directly. Her discharge from [facility] shows Methadone 30mg TID - we will continue this dose and discharge on 20mg TID per clinic and she can f/u with her PCP for further management. MNPMP should be scanned. Med recs requested from [facility]. We will continue to manage further acute pain.
[2018-05-14] MEDS: Methadone 10 MG Tab PO PRN ×2 (17:48→23:56)
[2018-05-14] MEDS ORDERED: Nystatin Susp 100,000 Unit/ML 5 ML UD Cup ONE (19:55)
[2018-05-14] MEDS: MAGIC MOUTH WASH PO SCH (20:27)
[2018-05-14] MEDS: Polyethylene Glycol 3350 Powder 17 GM Packet PO SCH (20:27)
[2018-05-14] MEDS: Sertraline 50 MG Tab PO SCH (20:27)
[2018-05-15] MEDS: Levothyroxine 100 MCG Tab PO SCH (07:02)
[2018-05-15] MEDS: Levothyroxine 25 MCG Tab PO SCH (07:02)
[2018-05-15] MEDS: Pantoprazole 40 MG Tab.CR PO SCH ×2 (07:02→20:10)
[2018-05-15] MEDS: Enoxaparin 40 MG/0.4 ML Syringe SUBCUT SCH (08:03)
[2018-05-15] MEDS: Methadone 10 MG Tab PO SCH ×3 (08:04→20:10)
[2018-05-15] MEDS: Calcium Carbonate/Vitamin D3 1500 MG-400 Units Tab PO SCH (08:05)
[2018-05-15] MEDS: Verapamil 80 MG Tab PO SCH ×3 (08:05→20:10)
[2018-05-15] MEDS: Fluconazole 150 MG Tab PO SCH (08:05)
[2018-05-15] MEDS: Lisinopril 5 MG Tab PO SCH (08:05)
[2018-05-15] MEDS: Potassium Chloride 20 MEQ Tab.ER PO SCH (08:05)
[2018-05-15] MEDS: MAGIC MOUTH WASH PO SCH ×2 (08:06→20:11)
[2018-05-15] MEDS: Acetaminophen/HYDROcodone 325-10 MG Tab PO PRN (11:26)
[2018-05-15] MEDS: Sertraline 50 MG Tab PO SCH (20:10)
[2018-05-15] MEDS: Polyethylene Glycol 3350 Powder 17 GM Packet PO SCH (20:11)
[2018-05-15] MEDS: Calcium Carbonate 500 MG Tab.Chew PO PRN (20:19)
[2018-05-15] MEDS: Ipratropium 0.02% 0.5 MG/2.5 ML Neb Soln INH PRN (20:19)
[2018-05-15] MEDS: Ondansetron 4 MG Tab.DIS PO PRN (21:05)
[2018-05-16] MEDS: Calcium Carbonate/Vitamin D3 1500 MG-400 Units Tab PO SCH (08:35)
[2018-05-16] MEDS: Calcium Carbonate 500 MG Tab.Chew PO PRN ×3 (08:35→20:15)
[2018-05-16] MEDS: Methadone 10 MG Tab PO SCH ×3 (08:35→20:16)
[2018-05-16] MEDS: Enoxaparin 40 MG/0.4 ML Syringe SUBCUT SCH (08:35)
[2018-05-16] MEDS: Potassium Chloride 20 MEQ Tab.ER PO SCH (08:36)
[2018-05-16] MEDS: Verapamil 80 MG Tab PO SCH ×3 (08:36→20:16)
[2018-05-16] MEDS: Levothyroxine 100 MCG Tab PO SCH (08:37)
[2018-05-16] MEDS: Fluconazole 150 MG Tab PO SCH (08:37)
[2018-05-16] MEDS: Pantoprazole 40 MG Tab.CR PO SCH ×2 (08:37→20:17)
[2018-05-16] MEDS: Levothyroxine 25 MCG Tab PO SCH (08:37)
[2018-05-16] MEDS: Lisinopril 5 MG Tab PO SCH (08:37)
[2018-05-16] MEDS: MAGIC MOUTH WASH PO SCH ×2 (08:38→20:17)
--- NOTE | 2018-05-16 16:10 | PN ---
DATE OF VISIT: SUBJECTIVE: A 72-year-old lady is here on swing bed. She is status post right hip fracture and surgery. Nursing staff had some concerns over some bloody-looking discharge involving the patient's dressing over the surgical site and she has been complaining of some abdominal discomfort, which is chronic for her. Upon entering the room, the patient was sitting up. She was eating breakfast. She states that her stomach feels irritated and is a long-term problem. She was on AcipHex and this helped her. Since she has been in the hospital, she has been on Protonix, and she does not feel it is working. She is wondering if she can get switch back to AcipHex. The patient's appetite has been fair per nursing staff. OBJECTIVE: Examining the dressing on the right lateral thigh reveals about 75% of it is saturated with bloody-looking discharge. There is no sign of redness of the skin around the dressing. TREATMENT PLAN: Treatment measures today. Labs will be drawn. A CBC shows a slightly elevated white count of 11.7, neutrophils are normal, PT/INR are normal, and CMP is also unremarkable. The patient is on Lovenox as well. At this point, we advised the patient that she can have someone bring in her AcipHex from home, we will switch over to that, and see if it helps her. She is to no longer have any acidic foods such as tomatoes or vinegar products, and she also states that orange juice bothers her stomach, so we will not give her any more of this. Nursing staff will change the dressing, and we will monitor it closely. RIAZ/AILYN /[id number]
[2018-05-16] MEDS: Sertraline 50 MG Tab PO SCH (20:16)
[2018-05-16] MEDS: Polyethylene Glycol 3350 Powder 17 GM Packet PO SCH (20:17)
[2018-05-17] MEDS: Acetaminophen/HYDROcodone 325-10 MG Tab PO PRN ×2 (01:00→22:31)
[2018-05-17] MEDS: ALPRAZolam 0.25 MG Tab PO PRN ×2 (02:13→22:33)
[2018-05-17] MEDS ORDERED: Lactulose Soln 10 GM/15 ML 15 ML UD Cup PO ONE (08:00)
[2018-05-17] MEDS: Calcium Carbonate 500 MG Tab.Chew PO PRN ×3 (08:18→18:40)
[2018-05-17] MEDS: Levothyroxine 25 MCG Tab PO SCH (08:19)
[2018-05-17] MEDS: Levothyroxine 100 MCG Tab PO SCH (08:19)
[2018-05-17] MEDS: Verapamil 80 MG Tab PO SCH ×3 (08:20→19:32)
[2018-05-17] MEDS: Pantoprazole 40 MG Tab.CR PO SCH ×2 (08:20→19:30)
[2018-05-17] MEDS: Calcium Carbonate/Vitamin D3 1500 MG-400 Units Tab PO SCH (08:21)
[2018-05-17] MEDS: Fluconazole 150 MG Tab PO SCH (08:21)
[2018-05-17] MEDS: Potassium Chloride 20 MEQ Tab.ER PO SCH (08:22)
[2018-05-17] MEDS: Methadone 10 MG Tab PO SCH ×3 (08:22→19:30)
[2018-05-17] MEDS: Lisinopril 5 MG Tab PO SCH (08:43)
[2018-05-17] MEDS: Enoxaparin 40 MG/0.4 ML Syringe SUBCUT SCH (08:45)
[2018-05-17] MEDS: MAGIC MOUTH WASH PO SCH ×2 (08:45→19:36)
[2018-05-17] MEDS: Sertraline 50 MG Tab PO SCH (19:30)
[2018-05-17] MEDS: Ipratropium 0.02% 0.5 MG/2.5 ML Neb Soln INH PRN (19:31)
[2018-05-17] MEDS: Polyethylene Glycol 3350 Powder 17 GM Packet PO SCH (19:33)
[2018-05-18] MEDS: Levothyroxine 100 MCG Tab PO SCH (09:30)
[2018-05-18] MEDS: Levothyroxine 25 MCG Tab PO SCH (09:30)
[2018-05-18] MEDS: Calcium Carbonate/Vitamin D3 1500 MG-400 Units Tab PO SCH (09:59)
[2018-05-18] MEDS: Lisinopril 5 MG Tab PO SCH (09:59)
[2018-05-18] MEDS: Enoxaparin 40 MG/0.4 ML Syringe SUBCUT SCH (10:00)
[2018-05-18] MEDS: Fluconazole 150 MG Tab PO SCH (10:01)
[2018-05-18] MEDS: Methadone 10 MG Tab PO SCH ×3 (10:02→19:44)
[2018-05-18] MEDS: Potassium Chloride 20 MEQ Tab.ER PO SCH (10:02)
[2018-05-18] MEDS: Calcium Carbonate 500 MG Tab.Chew PO PRN ×2 (10:03→17:24)
[2018-05-18] MEDS: Verapamil 80 MG Tab PO SCH ×3 (10:04→19:44)
[2018-05-18] MEDS: Ergocalciferol (Vitamin D2) 50,000 Unit Cap PO SCH ×2 (10:04→15:19)
--- NOTE | 2018-05-18 10:15 | PCM.PN ---
- General Info Date of Service: 05/18/18 Subjective Update: This is a 72yo F with only concerns that her is not with her as swing bed. She states she could not get any information from the hospital. She denies any pain and has had a good appetite as she has just finished her breakfast. She no longer has concerns of her stomach at this time and has been working with PT/OT. Functional Status: Reports: Pain Controlled, Tolerating Diet - Review of Systems General: Reports: No Symptoms HEENT: Reports: No Symptoms Pulmonary: Reports: No Symptoms Cardiovascular: Reports: No Symptoms Gastrointestinal: Reports: No Symptoms Genitourinary: Reports: No Symptoms Musculoskeletal: Reports: Joint Pain Skin: Reports: Bruising Neurological: Reports: No Symptoms - Patient Data Vitals - Most Recent: Last Vital Signs Temp 37.4 C 05/18/18 08:00 Pulse 66 05/18/18 08:00 Resp 16 05/18/18 08:00 BP 124/51 L 05/18/18 09:59 Pulse Ox 94 L 05/18/18 08:00 Weight - Most Recent: 83.007 kg Med Orders - Current: Current Medications Hydrocodone Bitart/Acetaminophen ([place] 325-10 Mg) 1 tab PO Q4H PRN PRN Reason: Pain (severe 7-10) Last Admin: 05/17/18 22:31 Dose: 1 tab Al Hydroxide/Mg Hydroxide (Gi Cocktail) 30 ml PO DAILY PRN PRN Reason: Abdominal Pain Alprazolam (Xanax) 1 mg PO QID PRN PRN Reason: Anxiety Last Admin: 05/17/18 22:33 Dose: 1 mg Calcium Carbonate (Caltrate 600+D 1500 Mg-400 Units) 1 tab PO DAILY [facility] Last Admin: 05/18/18 09:59 Dose: 1 tab Calcium Carbonate/Glycine (Tums) 1,000 mg PO Q2HR PRN PRN Reason: Indigestion Last Admin: 05/18/18 10:03 Dose: 1,000 mg Enoxaparin Sodium (Lovenox) 40 mg SUBCUT DAILY [facility] Last Admin: 05/18/18 10:00 Dose: 40 mg Ergocalciferol (Vitamin D2) 50,000 units PO Mo [facility] Last Admin: 05/18/18 10:04 Dose: 50,000 units Fluconazole (Diflucan) 150 mg PO DAILY [facility] Stop: 05/21/18 23:59 Last Admin: 05/18/18 10:01 Dose: 150 mg Hydromorphone HCl (Dilaudid) 1 mg SUBCUT Q4H PRN PRN Reason: SEVERE PAIN 7-10 PAIN SCALE Ipratropium [place] (Atrovent) 0.5 mg INH Q6H PRN PRN Reason: COPD Last Admin: 05/17/18 19:31 Dose: 0.5 mg Levothyroxine Sodium (Levothyroxine) 25 mcg PO ACBREAKFAST [facility] Last Admin: 05/17/18 08:19 Dose: 25 mcg Levothyroxine Sodium (Synthroid) 100 mcg PO ACBREAKFAST [facility] Last Admin: 05/17/18 08:19 Dose: 100 mcg Lisinopril (Prinivil) 5 mg PO DAILY [facility] Last Admin: 05/18/18 09:59 Dose: 5 mg Meclizine HCl (Antivert) 25 mg PO Q6H PRN PRN Reason: Dizziness Last Admin: 05/15/18 21:05 Dose: 25 mg Methadone HCl (Methadone) 30 mg PO TID [facility] Last Admin: 05/18/18 10:02 Dose: 30 mg Non-Formulary Medication (Hyoscyamine [Hyomax-Sl]) 0.125 mg SL Q4H PRN PRN Reason: Cramping Last Admin: 05/15/18 18:27 Dose: 0.125 mg Magic Mouth Wash ( Lidcaine/Magal/Nystatin( 10 each PO BID [facility] Last Admin: 05/17/18 19:36 Dose: 10 each Ondansetron HCl (Zofran Odt) 8 mg PO TID PRN PRN Reason: Nausea Last Admin: 05/15/18 21:05 Dose: 8 mg Pantoprazole Sodium (Protonix) 40 mg PO BIDAC [facility] Last Admin: 05/17/18 19:30 Dose: Not Given Polyethylene Glycol (Miralax) 17 gm PO QPM [facility] Last Admin: 05/17/18 19:33 Dose: Not Given Potassium Chloride (Klor-Con M20) 20 meq PO DAILY [facility] Last Admin: 05/18/18 10:02 Dose: 20 meq Sertraline HCl (Zoloft) 150 mg PO BEDTIME [facility] Last Admin: 05/17/18 19:30 Dose: 150 mg Verapamil HCl (Calan) 80 mg PO TID [facility] Last Admin: 05/18/18 10:04 Dose: 80 mg Discontinued Medications Hydromorphone HCl (Dilaudid) Confirm Administered Dose 2 mg .ROUTE .STK-MED ONE Stop: 05/12/18 21:39 Last Admin: 05/12/18 22:54 Dose: Not Given Hydromorphone HCl (Dilaudid) 1 mg SUBCUT ONETIME ONE Stop: 05/12/18 21:51 Last Admin: 05/12/18 21:50 Dose: 1 mg Hydromorphone HCl (Dilaudid) 2 mg IV Q4H PRN PRN Reason: SEVERE PAIN 7-10 PAIN SCALE Hydromorphone HCl (Dilaudid) 2 mg SUBCUT Q4H PRN PRN Reason: SEVERE PAIN 7-10 PAIN SCALE Ipratropium [place] (Atrovent) 0.5 mg INH Q6H LEX Lactulose (Chronulac) 10 gm PO ONETIME ONE Stop: 05/17/18 08:01 Last Admin: 05/17/18 08:24 Dose: 10 gm Levothyroxine Sodium (Synthroid) 100 mcg PO ACBREAKFAST [place] Methadone HCl (Methadone) 40 mg PO BID PRN PRN Reason: Pain Last Admin: 05/13/18 20:18 Dose: 40 mg Methadone HCl (Methadone) 30 mg PO TID PRN PRN Reason: PAIN Last Admin: 05/14/18 23:56 Dose: 30 mg Nystatin (Mycostatin) Confirm Administered Dose 5 ml .ROUTE .STK-MED ONE Stop: 05/14/18 19:56 Last Admin: 05/14/18 20:48 Dose: Not Given Tuberculin PPD (Aplisol) 5 unit IDERM ONETIME ONE Stop: 05/12/18 16:57 Last Admin: 05/13/18 17:49 Dose: Not Given - Exam General: Alert, Oriented HEENT: Pupils Equal, Pupils Reactive, EOMI Neck: Supple Lungs: Clear to Auscultation, Normal Respiratory Effort Cardiovascular: Regular Rate, Regular Rhythm Extremities: Leg Pain (right leg pain) Skin: Other (there is bloody discharge from the right hip incision site - wound looks clean and there is no dehiscence. ) Wound/Incisions: Healing Well - Problem List & Annotations (1) Pain SNOMED Code(s): 78768164 Code(s): R52 - PAIN, UNSPECIFIED Status: Acute Current Visit: No (2) Subcapital fracture of neck of right femur SNOMED Code(s): 680512973 Code(s): S72.011A - UNSP INTRACAPSULAR FRACTURE OF RIGHT FEMUR, INIT FOR CLOS FX Status: Acute Priority: High Current Visit: No Qualifiers: Encounter type: initial encounter Fracture type: closed Qualified Code(s) : S72.011A - Unspecified intracapsular fracture of right femur, initial encounter for closed fracture - Problem List Review Problem List Initiated/Reviewed/Updated: Yes - My Orders Last 24 Hours: My Active Orders 05/18/18 08:00 Ergocalciferol (Vitamin D2) [Vitamin D2] 50,000 units PO Mo - Plan Plan:: Patient states she has already arranged for help for her at home. She is working with PT/OT. Discussed wound and dressing change - we will change it today and monitor the site closely (at this time there is no infection, no erythema and healing is very good). F/u PT/OT recommendations. Continue lovenox at this time and monitor any bruising or bleeding. Pain management good per patient.
[2018-05-18] MEDS: Pantoprazole 40 MG Tab.CR PO SCH (10:41)
[2018-05-18] MEDS: Acetaminophen/HYDROcodone 325-10 MG Tab PO PRN (11:14)
[2018-05-18] MEDS: MAGIC MOUTH WASH PO SCH ×2 (11:15→19:46)
[2018-05-18] MEDS: Lactulose Soln 10 GM/15 ML 15 ML UD Cup PO PRN (17:10)
[2018-05-18] MEDS: Ipratropium 0.02% 0.5 MG/2.5 ML Neb Soln INH PRN (19:43)
[2018-05-18] MEDS: Sertraline 50 MG Tab PO SCH (19:44)
[2018-05-18] MEDS: ALPRAZolam 0.25 MG Tab PO PRN (21:00)
[2018-05-19] MEDS: Acetaminophen/HYDROcodone 325-10 MG Tab PO PRN ×2 (01:05→10:30)
[2018-05-19] MEDS: Polyethylene Glycol 3350 Powder 17 GM Packet PO SCH ×2 (02:01→20:47)
[2018-05-19] MEDS: Pantoprazole 40 MG Tab.CR PO SCH ×2 (02:01→07:40)
[2018-05-19] MEDS: Fluconazole 150 MG Tab PO SCH (07:55)
[2018-05-19] MEDS: Potassium Chloride 20 MEQ Tab.ER PO SCH (07:55)
[2018-05-19] MEDS: Methadone 10 MG Tab PO SCH ×3 (07:56→20:45)
[2018-05-19] MEDS: Verapamil 80 MG Tab PO SCH ×3 (07:56→20:45)
[2018-05-19] MEDS: Levothyroxine 25 MCG Tab PO SCH (07:57)
[2018-05-19] MEDS: Levothyroxine 100 MCG Tab PO SCH (07:57)
[2018-05-19] MEDS: Calcium Carbonate/Vitamin D3 1500 MG-400 Units Tab PO SCH (07:58)
[2018-05-19] MEDS: Enoxaparin 40 MG/0.4 ML Syringe SUBCUT SCH (07:59)
[2018-05-19] MEDS: Lisinopril 5 MG Tab PO SCH (07:59)
[2018-05-19] MEDS: Calcium Carbonate 500 MG Tab.Chew PO PRN ×4 (08:15→22:05)
--- NOTE | 2018-05-19 11:24 | CR ---
DATE OF SERVICE: 05/19/18 CLINICAL DATA: hip evaluation RIGHT HIP: Comparison is made to a prior exam dated 05/06/2018. The patient is status post internal fixation of a mildly impacted subcapital femoral neck fracture on the right. The exam is otherwise unchanged from the prior. [id number] MTDD
[2018-05-19] MEDS: MAGIC MOUTH WASH PO SCH ×2 (11:27→20:45)
[2018-05-19] MEDS: Ondansetron 4 MG Tab.DIS PO PRN (19:38)
[2018-05-19] MEDS: Sertraline 50 MG Tab PO SCH (20:46)
[2018-05-19] MEDS: ALPRAZolam 0.25 MG Tab PO PRN (21:41)
[2018-05-20] MEDS: Enoxaparin 40 MG/0.4 ML Syringe SUBCUT SCH (07:40)
[2018-05-20] MEDS: Potassium Chloride 20 MEQ Tab.ER PO SCH (07:43)
[2018-05-20] MEDS: Verapamil 80 MG Tab PO SCH ×3 (07:44→19:23)
[2018-05-20] MEDS: Calcium Carbonate/Vitamin D3 1500 MG-400 Units Tab PO SCH (07:44)
[2018-05-20] MEDS: Methadone 10 MG Tab PO SCH ×3 (07:45→19:23)
[2018-05-20] MEDS: Fluconazole 150 MG Tab PO SCH (07:46)
[2018-05-20] MEDS: Levothyroxine 25 MCG Tab PO SCH (07:46)
[2018-05-20] MEDS: Lisinopril 5 MG Tab PO SCH (07:47)
[2018-05-20] MEDS: Levothyroxine 100 MCG Tab PO SCH (07:47)
[2018-05-20] MEDS: MAGIC MOUTH WASH PO SCH (07:48)
[2018-05-20] MEDS ORDERED: MAGIC MOUTH WASH PO PRN (09:00)
[2018-05-20] MEDS: Ondansetron 4 MG Tab.DIS PO PRN (11:40)
[2018-05-20] MEDS: Calcium Carbonate 500 MG Tab.Chew PO PRN ×4 (13:21→21:49)
[2018-05-20] MEDS: Sertraline 50 MG Tab PO SCH (19:23)
[2018-05-20] MEDS: Polyethylene Glycol 3350 Powder 17 GM Packet PO SCH (19:24)
[2018-05-20] MEDS: GI Cocktail Oral Solution 30 ML PO PRN (20:22)
[2018-05-20] MEDS: Acetaminophen/HYDROcodone 325-10 MG Tab PO PRN (20:59)
[2018-05-20] MEDS: LANSOPRAZOLE 30MG DR CAPSULE PO SCH (21:11)
[2018-05-21] MEDS: Levothyroxine 100 MCG Tab PO SCH (06:28)
[2018-05-21] MEDS: Levothyroxine 25 MCG Tab PO SCH (06:29)
[2018-05-21] MEDS: LANSOPRAZOLE 30MG DR CAPSULE PO SCH (06:29)
[2018-05-21] MEDS: Calcium Carbonate/Vitamin D3 1500 MG-400 Units Tab PO SCH (08:07)
[2018-05-21] MEDS: Verapamil 80 MG Tab PO SCH ×3 (08:07→19:19)
[2018-05-21] MEDS: Fluconazole 150 MG Tab PO SCH (08:08)
[2018-05-21] MEDS: Potassium Chloride 20 MEQ Tab.ER PO SCH ×2 (08:09→08:10)
[2018-05-21] MEDS: Methadone 10 MG Tab PO SCH ×3 (08:10→19:19)
[2018-05-21] MEDS: Lisinopril 5 MG Tab PO SCH (08:11)
[2018-05-21] MEDS: Enoxaparin 40 MG/0.4 ML Syringe SUBCUT SCH (08:32)
[2018-05-21] MEDS: Calcium Carbonate 500 MG Tab.Chew PO PRN ×3 (08:32→18:05)
[2018-05-21] MEDS: Acetaminophen/HYDROcodone 325-10 MG Tab PO PRN (14:47)
[2018-05-21] MEDS: Sertraline 50 MG Tab PO SCH (19:19)
[2018-05-21] MEDS: Polyethylene Glycol 3350 Powder 17 GM Packet PO SCH (19:21)
[2018-05-22] MEDS: Acetaminophen/HYDROcodone 325-10 MG Tab PO PRN (00:14)
[2018-05-22] MEDS: ALPRAZolam 0.25 MG Tab PO PRN ×2 (00:14→22:45)
[2018-05-22] MEDS ORDERED: Diphenhydramine/Lidocaine/Nystatin Suspension 237 ML Bottle PO SCH (08:00)
[2018-05-22] MEDS ORDERED: Non-Formulary Medication 1 Each PO SCH (08:00)
[2018-05-22] MEDS: LANSOPRAZOLE 30MG DR CAPSULE PO SCH ×3 (08:29→20:13)
[2018-05-22] MEDS: Lisinopril 5 MG Tab PO SCH (08:29)
[2018-05-22] MEDS: Calcium Carbonate/Vitamin D3 1500 MG-400 Units Tab PO SCH (08:45)
[2018-05-22] MEDS: Methadone 10 MG Tab PO SCH ×3 (08:46→19:53)
[2018-05-22] MEDS: Levothyroxine 100 MCG Tab PO SCH (08:46)
[2018-05-22] MEDS: Levothyroxine 25 MCG Tab PO SCH (08:46)
[2018-05-22] MEDS: Enoxaparin 40 MG/0.4 ML Syringe SUBCUT SCH (08:47)
[2018-05-22] MEDS: Verapamil 80 MG Tab PO SCH ×3 (08:47→19:53)
[2018-05-22] MEDS: Potassium Chloride 20 MEQ Tab.ER PO SCH (08:47)
[2018-05-22] MEDS: Fluconazole 150 MG Tab PO SCH (08:47)
[2018-05-22] MEDS: Calcium Carbonate 500 MG Tab.Chew PO PRN ×3 (13:42→22:45)
[2018-05-22] MEDS: Sertraline 50 MG Tab PO SCH (19:53)
[2018-05-22] MEDS: Polyethylene Glycol 3350 Powder 17 GM Packet PO SCH (19:54)
[2018-05-22] MEDS: MAGIC MOUTH WASH PO PRN (20:02)
[2018-05-22] MEDS: GI Cocktail Oral Solution 30 ML PO PRN (20:10)
[2018-05-23] MEDS: Calcium Carbonate 500 MG Tab.Chew PO PRN ×5 (04:30→22:14)
[2018-05-23] MEDS: Ondansetron 4 MG Tab.DIS PO PRN (04:30)
[2018-05-23] MEDS: LANSOPRAZOLE 30MG DR CAPSULE PO SCH ×2 (09:26→20:06)
[2018-05-23] MEDS: Fluconazole 150 MG Tab PO SCH ×2 (11:07→11:42)
[2018-05-23] MEDS: Levothyroxine 100 MCG Tab PO SCH ×2 (11:07→11:42)
[2018-05-23] MEDS: Enoxaparin 40 MG/0.4 ML Syringe SUBCUT SCH (11:07)
[2018-05-23] MEDS: Calcium Carbonate/Vitamin D3 1500 MG-400 Units Tab PO SCH ×2 (11:08→11:42)
[2018-05-23] MEDS: Lisinopril 5 MG Tab PO SCH ×2 (11:08→11:42)
[2018-05-23] MEDS: Levothyroxine 25 MCG Tab PO SCH ×2 (11:08→11:42)
[2018-05-23] MEDS: Potassium Chloride 20 MEQ Tab.ER PO SCH ×2 (11:09→11:42)
[2018-05-23] MEDS: Verapamil 80 MG Tab PO SCH ×4 (11:09→21:47)
[2018-05-23] MEDS: Methadone 10 MG Tab PO SCH ×4 (11:12→21:52)
[2018-05-23] MEDS: MAGIC MOUTH WASH PO PRN (14:01)
[2018-05-23] MEDS: ALPRAZolam 0.25 MG Tab PO PRN (21:48)
[2018-05-23] MEDS: Nystatin Topical Powder 15 GM Bottle TOP SCH (21:49)
[2018-05-23] MEDS: Polyethylene Glycol 3350 Powder 17 GM Packet PO SCH (21:49)
[2018-05-23] MEDS: Sertraline 50 MG Tab PO SCH (21:49)
[2018-05-24] MEDS: Calcium Carbonate 500 MG Tab.Chew PO PRN ×5 (04:00→22:10)
[2018-05-24] MEDS: LANSOPRAZOLE 30MG DR CAPSULE PO SCH ×2 (09:17→19:57)
[2018-05-24] MEDS: Levothyroxine 25 MCG Tab PO SCH (09:17)
[2018-05-24] MEDS: Levothyroxine 100 MCG Tab PO SCH (09:18)
[2018-05-24] MEDS: Methadone 10 MG Tab PO SCH ×3 (09:20→21:57)
[2018-05-24] MEDS: Lisinopril 5 MG Tab PO SCH (09:20)
[2018-05-24] MEDS: Potassium Chloride 20 MEQ Tab.ER PO SCH (09:21)
[2018-05-24] MEDS: Calcium Carbonate/Vitamin D3 1500 MG-400 Units Tab PO SCH (09:21)
[2018-05-24] MEDS: Verapamil 80 MG Tab PO SCH ×3 (09:21→22:08)
[2018-05-24] MEDS: Nystatin Topical Powder 15 GM Bottle TOP SCH ×2 (09:22→21:56)
[2018-05-24] MEDS: Enoxaparin 40 MG/0.4 ML Syringe SUBCUT SCH (09:22)
[2018-05-24] MEDS: Fluconazole 150 MG Tab PO SCH (09:23)
[2018-05-24] MEDS ORDERED: Calcium Carbonate 500 MG Tab.Chew ONE (14:25)
[2018-05-24] MEDS: Acetaminophen/HYDROcodone 325-10 MG Tab PO PRN (20:09)
[2018-05-24] MEDS: Sertraline 50 MG Tab PO SCH (21:58)
[2018-05-24] MEDS: ALPRAZolam 0.25 MG Tab PO PRN (21:59)
[2018-05-24] MEDS ORDERED: ALPRAZolam 0.25 MG Tab ONE (21:59)
[2018-05-24] MEDS: Polyethylene Glycol 3350 Powder 17 GM Packet PO SCH (22:01)
[2018-05-25] MEDS: LANSOPRAZOLE 30MG DR CAPSULE PO SCH ×2 (07:06→20:57)
[2018-05-25] MEDS: Calcium Carbonate 500 MG Tab.Chew PO PRN ×2 (07:06→20:57)
[2018-05-25] MEDS: Levothyroxine 25 MCG Tab PO SCH (07:07)
[2018-05-25] MEDS: Levothyroxine 100 MCG Tab PO SCH (07:07)
[2018-05-25] MEDS: Ipratropium 0.02% 0.5 MG/2.5 ML Neb Soln INH PRN (10:40)
[2018-05-25] MEDS: Fluconazole 150 MG Tab PO SCH (10:40)
[2018-05-25] MEDS: Lisinopril 5 MG Tab PO SCH (10:41)
[2018-05-25] MEDS: Methadone 10 MG Tab PO SCH ×4 (10:42→22:13)
[2018-05-25] MEDS: Enoxaparin 40 MG/0.4 ML Syringe SUBCUT SCH (10:43)
[2018-05-25] MEDS: Verapamil 80 MG Tab PO SCH ×3 (10:43→22:14)
[2018-05-25] MEDS: Calcium Carbonate/Vitamin D3 1500 MG-400 Units Tab PO SCH (10:43)
[2018-05-25] MEDS: Potassium Chloride 20 MEQ Tab.ER PO SCH (10:43)
[2018-05-25] MEDS: Nystatin Topical Powder 15 GM Bottle TOP SCH ×2 (10:44→21:00)
[2018-05-25] MEDS: Ergocalciferol (Vitamin D2) 50,000 Unit Cap PO SCH (10:44)
--- NOTE | 2018-05-25 17:12 | PCM.PN ---
- General Info Date of Service: 05/25/18 Subjective Update: Patient is doing well and eating well. She states she has some discomfort but overall has no concerns. She does have a f/u with Ortho today for evaluation of progress. Functional Status: Reports: Pain Controlled, Tolerating Diet, Ambulating (33% weight bearing of right - needs to be cleared by ortho for further weight bearing) - Review of Systems General: Reports: Weakness HEENT: Reports: No Symptoms Pulmonary: Reports: No Symptoms Cardiovascular: Reports: No Symptoms Gastrointestinal: Reports: No Symptoms Genitourinary: Reports: No Symptoms Musculoskeletal: Reports: Leg Pain Skin: Reports: No Symptoms Neurological: Reports: No Symptoms - Patient Data Vitals - Most Recent: Last Vital Signs Temp 36.8 C 05/25/18 08:00 Pulse 60 05/25/18 08:00 Resp 12 05/25/18 08:00 BP 137/42 L 05/25/18 08:00 Pulse Ox 97 05/25/18 08:00 Weight - Most Recent: 79.605 kg Lab Results Last 24 Hours: Laboratory Results - last 24 hr 05/25/18 Range/Units 17:00 WBC 11.7 H (4.0-11.0) K/uL RBC 4.11 (3.80-5.80) M/uL Hgb 12.3 (11.5-16.5) g/dL Hct 38.1 (37.0-47.0) % MCV 93 (76-96) fL MCH 29.9 (27.0-32.0) pg MCHC 32.3 (31.0-35.0) g/dL RDW 14.3 (11.0-16.0) % Plt Count 332 (150-500) K/uL MPV 9.4 (6.0-10.0) fL Neut % (Auto) 63.7 (45.0-70.0) % Lymph % (Auto) 23.2 (20.0-40.0) % [place] % (Auto) 8.5 (3.0-10.0) % Eos % (Auto) 3.9 (1.0-5.0) % Baso % (Auto) 0.7 H (0.0-0.5) % Neut # (Auto) 7.42 (2.00-7.50) K/uL Lymph # (Auto) 2.70 (1.50-4.00) K/uL [place] # (Auto) 0.99 H (0.20-0.80) K/uL Eos # (Auto) 0.46 H (0.04-0.40) K/uL Baso # (Auto) 0.08 (0.02-0.10) K/uL Med Orders - Current: Current Medications Hydrocodone Bitart/Acetaminophen ([place] 325-10 Mg) 1 tab PO Q4H PRN PRN Reason: Pain (severe 7-10) Last Admin: 05/24/18 20:09 Dose: 1 tab Al Hydroxide/Mg Hydroxide (Gi Cocktail) 30 ml PO DAILY PRN PRN Reason: Abdominal Pain Last Admin: 05/22/18 20:10 Dose: 30 ml Alprazolam (Xanax) 1 mg PO QID PRN PRN Reason: Anxiety Last Admin: 05/24/18 21:59 Dose: 1 mg Calcium Carbonate (Caltrate 600+D 1500 Mg-400 Units) 1 tab PO DAILY [facility] Last Admin: 05/25/18 10:43 Dose: Not Given Calcium Carbonate/Glycine (Tums) 1,000 mg PO Q2HR PRN PRN Reason: Indigestion Last Admin: 05/25/18 07:06 Dose: 1,000 mg Enoxaparin Sodium (Lovenox) 40 mg SUBCUT DAILY [facility] Last Admin: 05/25/18 10:43 Dose: 40 mg Ergocalciferol (Vitamin D2) 50,000 units PO Mo [facility] Last Admin: 05/25/18 10:44 Dose: 50,000 units Fluconazole (Diflucan) 150 mg PO DAILY [facility] Last Admin: 05/25/18 10:40 Dose: 150 mg Hydromorphone HCl (Dilaudid) 1 mg SUBCUT Q4H PRN PRN Reason: SEVERE PAIN 7-10 PAIN SCALE Ipratropium [place] (Atrovent) 0.5 mg INH Q6H PRN PRN Reason: COPD Last Admin: 05/25/18 10:40 Dose: 0.5 mg Lactulose (Chronulac) 10 gm PO QID PRN PRN Reason: Constipation Last Admin: 05/18/18 17:10 Dose: 10 gm Levothyroxine Sodium (Levothyroxine) 25 mcg PO ACBREAKFAST [facility] Last Admin: 05/25/18 07:07 Dose: 25 mcg Levothyroxine Sodium (Synthroid) 100 mcg PO ACBREAKFAST [facility] Last Admin: 05/25/18 07:07 Dose: 100 mcg Lisinopril (Prinivil) 5 mg PO DAILY [facility] Last Admin: 05/25/18 10:41 Dose: 5 mg Meclizine HCl (Antivert) 25 mg PO Q6H PRN PRN Reason: Dizziness Last Admin: 05/15/18 21:05 Dose: 25 mg Methadone HCl (Methadone) 30 mg PO TID [facility] Last Admin: 05/25/18 17:04 Dose: Not Given Non-Formulary Medication (Hyoscyamine [Hyomax-Sl]) 0.125 mg SL Q4H PRN PRN Reason: Cramping Last Admin: 05/15/18 18:27 Dose: 0.125 [address] (Capsule) 1 each PO BID [facility] Last Admin: 05/25/18 07:06 Dose: 1 each Magic Mouth Wash ( Lidcaine/Magal/Nystatin 10 each PO QID PRN PRN Reason: mouth sores Last Admin: 05/23/18 14:01 Dose: 10 each Nystatin (Nystop) 1 gm TOP BID [facility] Last Admin: 05/25/18 10:44 Dose: 1 applic Ondansetron HCl (Zofran Odt) 8 mg PO TID PRN PRN Reason: Nausea Last Admin: 05/23/18 04:30 Dose: 8 mg Polyethylene Glycol (Miralax) 17 gm PO QPM [facility] Last Admin: 05/24/18 22:01 Dose: Not Given Potassium Chloride (Klor-Con M20) 20 meq PO DAILY [facility] Last Admin: 05/25/18 10:43 Dose: Not Given Sertraline HCl (Zoloft) 150 mg PO BEDTIME [facility] Last Admin: 05/24/18 21:58 Dose: 150 mg Verapamil HCl (Calan) 80 mg PO TID [facility] Last Admin: 05/25/18 10:43 Dose: 80 mg Discontinued Medications Alprazolam (Xanax) Confirm Administered Dose 1 mg .ROUTE .STK-MED ONE Stop: 05/24/18 22:00 Calcium Carbonate/Glycine (Tums) Confirm Administered Dose 500 mg .ROUTE .STK- MED ONE Stop: 05/24/18 14:26 Fluconazole (Diflucan) 150 mg PO DAILY [facility] Stop: 05/21/18 23:59 Last Admin: 05/21/18 08:08 Dose: 150 mg Hydromorphone HCl (Dilaudid) Confirm Administered Dose 2 mg .ROUTE .STK-MED ONE Stop: 05/12/18 21:39 Last Admin: 05/12/18 22:54 Dose: Not Given Hydromorphone HCl (Dilaudid) 1 mg SUBCUT ONETIME ONE Stop: 05/12/18 21:51 Last Admin: 05/12/18 21:50 Dose: 1 mg Hydromorphone HCl (Dilaudid) 2 mg IV Q4H PRN PRN Reason: SEVERE PAIN 7-10 PAIN SCALE Hydromorphone HCl (Dilaudid) 2 mg SUBCUT Q4H PRN PRN Reason: SEVERE PAIN 7-10 PAIN SCALE Ipratropium [place] (Atrovent) 0.5 mg INH Q6H [facility] Lactulose (Chronulac) 10 gm PO ONETIME ONE Stop: 05/17/18 08:01 Last Admin: 05/17/18 08:24 Dose: 10 gm Levothyroxine Sodium (Synthroid) 100 mcg PO ACBREAKFAST [facility] Methadone HCl (Methadone) 40 mg PO BID PRN PRN Reason: Pain Last Admin: 05/13/18 20:18 Dose: 40 mg Methadone HCl (Methadone) 30 mg PO TID PRN PRN Reason: PAIN Last Admin: 05/14/18 23:56 Dose: 30 mg Magic Mouth Wash ( Lidcaine/Magal/Nystatin( 10 each PO BID [facility] Last Admin: 05/20/18 07:48 Dose: Not Given Magic Mouth Wash ( Lidcaine/Magal/Nystatin( 10 each PO BID PRN PRN Reason: mouth sores Lansoprazole 30mg Dr (Capsule) 1 each PO ACBREAKFAST [facility] Last Admin: 05/22/18 20:13 Dose: Not Given Nystatin (Mycostatin) Confirm Administered Dose 5 ml .ROUTE .STK-MED ONE Stop: 05/14/18 19:56 Last Admin: 05/14/18 20:48 Dose: Not Given Pantoprazole Sodium (Protonix) 40 mg PO BIDAC [facility] Last Admin: 05/19/18 07:40 Dose: Not Given Tuberculin PPD (Aplisol) 5 unit IDERM ONETIME ONE Stop: 05/12/18 16:57 Last Admin: 05/13/18 17:49 Dose: Not Given - Exam General: Alert, Oriented, Cooperative HEENT: Pupils Equal, Pupils Reactive Neck: Supple Lungs: Clear to Auscultation, Normal Respiratory Effort Cardiovascular: Regular Rate, Regular Rhythm Back Exam: Normal Inspection Extremities: Normal Inspection - Problem List & Annotations (1) Pain SNOMED Code(s): 17475533 Code(s): R52 - PAIN, UNSPECIFIED Status: Acute Current Visit: No (2) Subcapital fracture of neck of right femur SNOMED Code(s): 298693875 Code(s): S72.011A - UNSP INTRACAPSULAR FRACTURE OF RIGHT FEMUR, INIT FOR CLOS FX Status: Acute Priority: High Current Visit: No Qualifiers: Encounter type: initial encounter Fracture type: closed Qualified Code(s) : S72.011A - Unspecified intracapsular fracture of right femur, initial encounter for closed fracture - Problem List Review Problem List Initiated/Reviewed/Updated: Yes - My Orders Last 24 Hours: My Active Orders 05/25/18 13:19 COMPREHENSIVE METABOLIC PN,CMP [CHEM] Routine INR,PT,PROTHROMBIN TIME [COAG] Routine - Plan Plan:: Patient states she has already arranged for help for her at home. She is working with PT/OT. Discussed wound and dressing change - we will change it today and monitor the site closely (at this time there is no infection, no erythema and healing is very good). F/u PT/OT recommendations. Continue lovenox at this time and monitor any bruising or bleeding. Pain management good per patient. 05/25/18 Patient doing well and will go for an ORtho f/u evaluation for weight bearing status and adjustment. F/u orders and adjust PT/OT orders. No other changes.
[2018-05-25] MEDS ORDERED: Fluconazole 150 MG Tab ONE (20:23)
[2018-05-25] MEDS: Polyethylene Glycol 3350 Powder 17 GM Packet PO SCH (21:01)
[2018-05-25] MEDS: Sertraline 50 MG Tab PO SCH (22:12)
[2018-05-25] MEDS: Acetaminophen/HYDROcodone 325-10 MG Tab PO PRN (22:15)
[2018-05-25] MEDS: ALPRAZolam 0.25 MG Tab PO PRN (23:11)
[2018-05-26] MEDS: Ipratropium 0.02% 0.5 MG/2.5 ML Neb Soln INH PRN (00:24)
[2018-05-26] MEDS: MAGIC MOUTH WASH PO PRN (00:54)
[2018-05-26] MEDS: LANSOPRAZOLE 30MG DR CAPSULE PO SCH ×2 (07:14→20:37)
[2018-05-26] MEDS: Calcium Carbonate 500 MG Tab.Chew PO PRN ×4 (07:14→23:00)
[2018-05-26] MEDS: Levothyroxine 100 MCG Tab PO SCH (07:15)
[2018-05-26] MEDS: Levothyroxine 25 MCG Tab PO SCH (07:15)
[2018-05-26] MEDS: Calcium Carbonate/Vitamin D3 1500 MG-400 Units Tab PO SCH (08:43)
[2018-05-26] MEDS: Lisinopril 5 MG Tab PO SCH (08:43)
[2018-05-26] MEDS: Methadone 10 MG Tab PO SCH ×3 (08:43→20:41)
[2018-05-26] MEDS: Verapamil 80 MG Tab PO SCH ×3 (08:43→20:43)
[2018-05-26] MEDS: Potassium Chloride 20 MEQ Tab.ER PO SCH (08:43)
[2018-05-26] MEDS: Fluconazole 150 MG Tab PO SCH (08:44)
[2018-05-26] MEDS: Enoxaparin 40 MG/0.4 ML Syringe SUBCUT SCH (08:44)
[2018-05-26] MEDS: Nystatin Topical Powder 15 GM Bottle TOP SCH ×2 (10:03→20:40)
[2018-05-26] MEDS: Albuterol/Ipratropium 3.0-0.5 MG/3 ML Neb Soln NEB SCH ×3 (13:43→16:33)
[2018-05-26] MEDS: Ipratropium 0.02% 0.5 MG/2.5 ML Neb Soln INH SCH (16:47)
[2018-05-26] MEDS: Sertraline 50 MG Tab PO SCH (20:39)
[2018-05-26] MEDS: Polyethylene Glycol 3350 Powder 17 GM Packet PO SCH (20:43)
[2018-05-26] MEDS: Ondansetron 4 MG Tab.DIS PO PRN (23:00)
[2018-05-27] MEDS: Ipratropium 0.02% 0.5 MG/2.5 ML Neb Soln INH SCH ×5 (06:18→23:07)
[2018-05-27] MEDS: Levothyroxine 25 MCG Tab PO SCH (06:29)
[2018-05-27] MEDS: Levothyroxine 100 MCG Tab PO SCH (06:30)
[2018-05-27] MEDS: Potassium Chloride 20 MEQ Tab.ER PO SCH (08:53)
[2018-05-27] MEDS: Methadone 10 MG Tab PO SCH ×3 (08:53→20:33)
[2018-05-27] MEDS: Enoxaparin 40 MG/0.4 ML Syringe SUBCUT SCH (08:53)
[2018-05-27] MEDS: Lisinopril 5 MG Tab PO SCH (08:55)
[2018-05-27] MEDS: Calcium Carbonate/Vitamin D3 1500 MG-400 Units Tab PO SCH (08:55)
[2018-05-27] MEDS: Nystatin Topical Powder 15 GM Bottle TOP SCH ×2 (08:56→21:03)
[2018-05-27] MEDS: LANSOPRAZOLE 30MG DR CAPSULE PO SCH ×2 (08:56→20:33)
[2018-05-27] MEDS: Fluconazole 150 MG Tab PO SCH (08:57)
[2018-05-27] MEDS: Verapamil 80 MG Tab PO SCH ×3 (08:57→20:59)
[2018-05-27] MEDS: Ondansetron 4 MG Tab.DIS PO PRN ×2 (10:36→20:33)
[2018-05-27] MEDS: Calcium Carbonate 500 MG Tab.Chew PO PRN (20:33)
[2018-05-27] MEDS: Polyethylene Glycol 3350 Powder 17 GM Packet PO SCH (20:36)
[2018-05-27] MEDS: Sertraline 50 MG Tab PO SCH (20:59)
[2018-05-27] MEDS: ALPRAZolam 0.25 MG Tab PO PRN (21:22)
[2018-05-27] MEDS: MAGIC MOUTH WASH PO PRN (22:45)
[2018-05-27] MEDS: Acetaminophen/HYDROcodone 325-10 MG Tab PO PRN (22:45)
[2018-05-28 02:12] LABS: QFT TB AG MINUS NIL VALUE 2.45 IU/mL (.); QUANTIFERON MITOGEN VALUE >10.00 IU/mL (.); QUANTIFERON NIL VALUE 0.07 IU/mL (.); QUANTIFERON TB AG VALUE 2.52 IU/mL (.); QUANTIFERON TB GOLD Positive (Negative)
[2018-05-28] MEDS: Ipratropium 0.02% 0.5 MG/2.5 ML Neb Soln INH SCH ×3 (06:00→20:31)
[2018-05-28] MEDS: Levothyroxine 25 MCG Tab PO SCH (08:24)
[2018-05-28] MEDS: Calcium Carbonate/Vitamin D3 1500 MG-400 Units Tab PO SCH (08:25)
[2018-05-28] MEDS: Levothyroxine 100 MCG Tab PO SCH (08:25)
[2018-05-28] MEDS: Methadone 10 MG Tab PO SCH ×3 (08:25→20:30)
[2018-05-28] MEDS: Verapamil 80 MG Tab PO SCH ×3 (08:26→20:29)
[2018-05-28] MEDS: Lisinopril 5 MG Tab PO SCH (08:26)
[2018-05-28] MEDS: Potassium Chloride 20 MEQ Tab.ER PO SCH (08:26)
[2018-05-28] MEDS: LANSOPRAZOLE 30MG DR CAPSULE PO SCH ×2 (08:31→20:29)
[2018-05-28] MEDS: Fluconazole 150 MG Tab PO SCH (08:31)
[2018-05-28] MEDS: Enoxaparin 40 MG/0.4 ML Syringe SUBCUT SCH (08:31)
[2018-05-28] MEDS: Nystatin Topical Powder 15 GM Bottle TOP SCH ×2 (08:32→20:30)
[2018-05-28] MEDS: Calcium Carbonate 500 MG Tab.Chew PO PRN ×2 (08:48→20:29)
--- NOTE | 2018-05-28 12:22 | CR ---
DATE OF SERVICE: 05/28/18 CLINICAL DATA: positive quantiferon gold test PA AND LATERAL CHEST: No priors. The heart size is normal. The lungs are hyperexpanded but clear. No evidence of acute intrathoracic disease. [id number] [facility]
[2018-05-28] MEDS: Lactulose Soln 10 GM/15 ML 15 ML UD Cup PO PRN (15:06)
[2018-05-28] MEDS: Polyethylene Glycol 3350 Powder 17 GM Packet PO SCH (20:29)
[2018-05-28] MEDS: Sertraline 50 MG Tab PO SCH (20:30)
[2018-05-28] MEDS: ALPRAZolam 0.25 MG Tab PO PRN (22:06)
[2018-05-29] MEDS: Ipratropium 0.02% 0.5 MG/2.5 ML Neb Soln INH SCH ×5 (00:47→22:45)
[2018-05-29] MEDS: LANSOPRAZOLE 30MG DR CAPSULE PO SCH ×2 (09:15→20:04)
[2018-05-29] MEDS: Calcium Carbonate 500 MG Tab.Chew PO PRN ×3 (09:15→20:05)
[2018-05-29] MEDS: Verapamil 80 MG Tab PO SCH ×3 (10:07→21:57)
[2018-05-29] MEDS: Levothyroxine 25 MCG Tab PO SCH (10:07)
[2018-05-29] MEDS: Levothyroxine 100 MCG Tab PO SCH (10:07)
[2018-05-29] MEDS: Methadone 10 MG Tab PO SCH ×3 (10:08→22:01)
[2018-05-29] MEDS: Calcium Carbonate/Vitamin D3 1500 MG-400 Units Tab PO SCH (10:09)
[2018-05-29] MEDS: Lisinopril 5 MG Tab PO SCH (10:09)
[2018-05-29] MEDS: Potassium Chloride 20 MEQ Tab.ER PO SCH (10:09)
[2018-05-29] MEDS: MAGIC MOUTH WASH PO PRN (10:10)
[2018-05-29] MEDS: Fluconazole 150 MG Tab PO SCH (10:10)
[2018-05-29] MEDS: Enoxaparin 40 MG/0.4 ML Syringe SUBCUT SCH (10:10)
--- NOTE | 2018-05-29 13:48 | PCM.SN ---
- Free Text/Narrative Note: Counseled on risks and benefits of Latent TB management and treatment. Patient agreeable to treatment but does not she is sensitive to medications. He labs especially her liver function has been stable and normal. Patient denies any history of liver disease or heaptitis. Counseled on side effects and f/u. Patient will need to be monitored due to her sensitivities to all medications. We will have to f/u liver enzymes and labs over the next few weeks. She is unable to monitor her progress for her hip fracture and she has not been cleared to increase weight bearing due to concerns of non-healing fracture. It would be prudent to ensure that the patient is able to tolerate and takes the Rifampin at this time while continuing PT/OT to prevent deconditioning and weakness.
[2018-05-29] MEDS: Nystatin Topical Powder 15 GM Bottle TOP SCH ×2 (17:09→22:00)
[2018-05-29] MEDS: Sertraline 50 MG Tab PO SCH (21:58)
[2018-05-29] MEDS: Polyethylene Glycol 3350 Powder 17 GM Packet PO SCH (21:59)
[2018-05-29] MEDS: ALPRAZolam 0.25 MG Tab PO PRN (22:06)
[2018-05-30] MEDS: Ipratropium 0.02% 0.5 MG/2.5 ML Neb Soln INH SCH ×4 (05:10→22:30)
[2018-05-30] MEDS: Levothyroxine 100 MCG Tab PO SCH (07:32)
[2018-05-30] MEDS: Calcium Carbonate 500 MG Tab.Chew PO PRN ×3 (07:32→20:00)
[2018-05-30] MEDS: Levothyroxine 25 MCG Tab PO SCH (07:32)
[2018-05-30] MEDS: LANSOPRAZOLE 30MG DR CAPSULE PO SCH ×2 (07:32→20:01)
[2018-05-30] MEDS: Potassium Chloride 20 MEQ Tab.ER PO SCH (08:00)
[2018-05-30] MEDS: Verapamil 80 MG Tab PO SCH ×3 (08:59→21:01)
[2018-05-30] MEDS: Calcium Carbonate/Vitamin D3 1500 MG-400 Units Tab PO SCH (08:59)
[2018-05-30] MEDS: Fluconazole 150 MG Tab PO SCH (09:00)
[2018-05-30] MEDS: Enoxaparin 40 MG/0.4 ML Syringe SUBCUT SCH (09:00)
[2018-05-30] MEDS: Lisinopril 5 MG Tab PO SCH (09:01)
[2018-05-30] MEDS: Methadone 10 MG Tab PO SCH ×3 (09:01→21:02)
[2018-05-30] MEDS: Nystatin Topical Powder 15 GM Bottle TOP SCH ×2 (09:13→21:05)
[2018-05-30] MEDS: Sertraline 50 MG Tab PO SCH (21:03)
[2018-05-30] MEDS: Polyethylene Glycol 3350 Powder 17 GM Packet PO SCH (21:06)
[2018-05-30] MEDS: ALPRAZolam 0.25 MG Tab PO PRN (21:07)
[2018-05-31] MEDS: Acetaminophen/HYDROcodone 325-10 MG Tab PO PRN (01:09)
[2018-05-31] MEDS: Ipratropium 0.02% 0.5 MG/2.5 ML Neb Soln INH SCH ×4 (04:30→22:40)
[2018-05-31] MEDS: LANSOPRAZOLE 30MG DR CAPSULE PO SCH ×3 (06:43→20:15)
[2018-05-31] MEDS: Calcium Carbonate 500 MG Tab.Chew PO PRN ×2 (06:44→20:15)
[2018-05-31] MEDS: Levothyroxine 25 MCG Tab PO SCH (06:44)
[2018-05-31] MEDS: Levothyroxine 100 MCG Tab PO SCH (06:45)
[2018-05-31] MEDS: Enoxaparin 40 MG/0.4 ML Syringe SUBCUT SCH (08:44)
[2018-05-31] MEDS: Fluconazole 150 MG Tab PO SCH (08:45)
[2018-05-31] MEDS: Lisinopril 5 MG Tab PO SCH (08:45)
[2018-05-31] MEDS: Verapamil 80 MG Tab PO SCH ×3 (08:46→22:32)
[2018-05-31] MEDS: Methadone 10 MG Tab PO SCH ×3 (08:46→22:32)
[2018-05-31] MEDS: Potassium Chloride 20 MEQ Tab.ER PO SCH (08:46)
[2018-05-31] MEDS: Calcium Carbonate/Vitamin D3 1500 MG-400 Units Tab PO SCH (08:46)
[2018-05-31] MEDS: Nystatin Topical Powder 15 GM Bottle TOP SCH ×2 (08:48→22:33)
[2018-05-31] MEDS: Ondansetron 4 MG Tab.DIS PO PRN (22:32)
[2018-05-31] MEDS: Sertraline 50 MG Tab PO SCH (22:33)
[2018-05-31] MEDS: ALPRAZolam 0.25 MG Tab PO PRN (23:07)
[2018-06-01] MEDS: Acetaminophen/HYDROcodone 325-10 MG Tab PO PRN (01:40)
[2018-06-01] MEDS: Ipratropium 0.02% 0.5 MG/2.5 ML Neb Soln INH SCH ×4 (04:30→21:30)
[2018-06-01] MEDS: Calcium Carbonate/Vitamin D3 1500 MG-400 Units Tab PO SCH (08:44)
[2018-06-01] MEDS: Potassium Chloride 20 MEQ Tab.ER PO SCH (08:44)
[2018-06-01] MEDS: Enoxaparin 40 MG/0.4 ML Syringe SUBCUT SCH (08:45)
[2018-06-01] MEDS: Levothyroxine 25 MCG Tab PO SCH (08:46)
[2018-06-01] MEDS: Methadone 10 MG Tab PO SCH ×3 (08:46→21:26)
[2018-06-01] MEDS: Lisinopril 5 MG Tab PO SCH (08:47)
[2018-06-01] MEDS: Nystatin Topical Powder 15 GM Bottle TOP SCH ×2 (08:50→20:21)
[2018-06-01] MEDS: LANSOPRAZOLE 30MG DR CAPSULE PO SCH ×2 (08:51→20:20)
[2018-06-01] MEDS: Fluconazole 150 MG Tab PO SCH (08:51)
[2018-06-01] MEDS: Verapamil 80 MG Tab PO SCH ×3 (08:52→21:25)
[2018-06-01] MEDS: Levothyroxine 100 MCG Tab PO SCH (08:52)
[2018-06-01] MEDS: Calcium Carbonate 500 MG Tab.Chew PO PRN ×2 (09:05→20:20)
[2018-06-01] MEDS: Ergocalciferol (Vitamin D2) 50,000 Unit Cap PO SCH (09:06)
--- NOTE | 2018-06-01 11:54 | PCM.PN ---
- General Info Date of Service: 06/01/18 Subjective Update: Patient feels that her medications may be making her feel not so good. She feels sleepy. She denies any current pain or shortness of breath or chest pain. Patient states she has headaches and nausea with some congestion. Functional Status: Reports: Pain Controlled, Tolerating Diet, Ambulating - Review of Systems HEENT: Reports: No Symptoms Pulmonary: Reports: No Symptoms Cardiovascular: Reports: No Symptoms Gastrointestinal: Reports: No Symptoms Genitourinary: Reports: No Symptoms Musculoskeletal: Reports: Leg Pain Neurological: Reports: No Symptoms - Patient Data Vitals - Most Recent: Last Vital Signs Temp 37.0 C 06/01/18 09:08 Pulse 56 L 06/01/18 09:08 Resp 16 06/01/18 09:08 BP 124/47 L 06/01/18 09:08 Pulse Ox 98 05/31/18 19:25 Weight - Most Recent: 80.014 kg Med Orders - Current: Current Medications Hydrocodone Bitart/Acetaminophen ([place] 325-10 Mg) 1 tab PO Q4H PRN PRN Reason: Pain (severe 7-10) Last Admin: 06/01/18 01:40 Dose: 1 tab Al Hydroxide/Mg Hydroxide (Gi Cocktail) 30 ml PO DAILY PRN PRN Reason: Abdominal Pain Last Admin: 05/22/18 20:10 Dose: 30 ml Alprazolam (Xanax) 1 mg PO QID PRN PRN Reason: Anxiety Last Admin: 05/31/18 23:07 Dose: 1 mg Calcium Carbonate (Caltrate 600+D 1500 Mg-400 Units) 1 tab PO DAILY [facility] Last Admin: 06/01/18 08:44 Dose: 1 tab Calcium Carbonate/Glycine (Tums) 1,000 mg PO Q2HR PRN PRN Reason: Indigestion Last Admin: 06/01/18 09:05 Dose: 1,000 mg Enoxaparin Sodium (Lovenox) 40 mg SUBCUT DAILY [facility] Last Admin: 06/01/18 08:45 Dose: 40 mg Ergocalciferol (Vitamin D2) 50,000 units PO Mo [facility] Last Admin: 06/01/18 09:06 Dose: 50,000 units Fluconazole (Diflucan) 150 mg PO DAILY [facility] Last Admin: 06/01/18 08:51 Dose: 150 mg Hydromorphone HCl (Dilaudid) 1 mg SUBCUT Q4H PRN PRN Reason: SEVERE PAIN 7-10 PAIN SCALE Ipratropium [place] (Atrovent) 0.5 mg INH Q6H [facility] Last Admin: 06/01/18 04:30 Dose: Not Given Lactulose (Chronulac) 10 gm PO QID PRN PRN Reason: Constipation Last Admin: 05/28/18 15:06 Dose: 10 gm Levothyroxine Sodium (Levothyroxine) 25 mcg PO ACBREAKFAST [facility] Last Admin: 06/01/18 08:46 Dose: 25 mcg Levothyroxine Sodium (Synthroid) 100 mcg PO ACBREAKFAST [facility] Last Admin: 06/01/18 08:52 Dose: 100 mcg Lisinopril (Prinivil) 5 mg PO DAILY [facility] Last Admin: 06/01/18 08:47 Dose: 5 mg Meclizine HCl (Antivert) 25 mg PO Q6H PRN PRN Reason: Dizziness Last Admin: 05/15/18 21:05 Dose: 25 mg Methadone HCl (Methadone) 30 mg PO TID [facility] Last Admin: 06/01/18 08:46 Dose: 30 mg Non-Formulary Medication (Hyoscyamine [Hyomax-Sl]) 0.125 mg SL Q4H PRN PRN Reason: Cramping Last Admin: 05/15/18 18:27 Dose: 0.[address] (Capsule) 1 each PO BID [facility] Last Admin: 06/01/18 08:51 Dose: 1 each Magic Mouth Wash ( Lidcaine/Magal/Nystatin 10 each PO QID PRN PRN Reason: mouth sores Last Admin: 05/29/18 10:10 Dose: 10 each Rifampin 300 Mg 0 each PO DAILY [facility] Stop: 09/27/18 15:01 Last Admin: 06/01/18 08:52 Dose: 300 each Nystatin (Nystop) 1 gm TOP BID [facility] Last Admin: 06/01/18 08:50 Dose: 1 applic Ondansetron HCl (Zofran Odt) 8 mg PO TID PRN PRN Reason: Nausea Last Admin: 05/31/18 22:32 Dose: 8 mg Potassium Chloride (Klor-Con M20) 20 meq PO DAILY [facility] Last Admin: 06/01/18 08:44 Dose: 20 meq Sertraline HCl (Zoloft) 150 mg PO BEDTIME [facility] Last Admin: 05/31/18 22:33 Dose: 150 mg Verapamil HCl (Calan) 80 mg PO TID [facility] Last Admin: 06/01/18 08:52 Dose: 80 mg Discontinued Medications Albuterol/Ipratropium (Duoneb 3.0-0.5 Mg/3 Ml) 3 ml NEB QID [facility] Last Admin: 05/26/18 16:33 Dose: Not Given Alprazolam (Xanax) Confirm Administered Dose 1 mg .ROUTE .STK-MED ONE Stop: 05/24/18 22:00 Last Admin: 05/27/18 02:32 Dose: Not Given Calcium Carbonate/Glycine (Tums) Confirm Administered Dose 500 mg .ROUTE .STK- MED ONE Stop: 05/24/18 14:26 Last Admin: 05/27/18 02:32 Dose: Not Given Fluconazole (Diflucan) 150 mg PO DAILY [facility] Stop: 05/21/18 23:59 Last Admin: 05/21/18 08:08 Dose: 150 mg Fluconazole (Diflucan) Confirm Administered Dose 150 mg .ROUTE .STK-MED ONE Stop: 05/25/18 20:24 Last Admin: 05/25/18 20:37 Dose: Not Given Hydromorphone HCl (Dilaudid) Confirm Administered Dose 2 mg .ROUTE .STK-MED ONE Stop: 05/12/18 21:39 Last Admin: 05/12/18 22:54 Dose: Not Given Hydromorphone HCl (Dilaudid) 1 mg SUBCUT ONETIME ONE Stop: 05/12/18 21:51 Last Admin: 05/12/18 21:50 Dose: 1 mg Hydromorphone HCl (Dilaudid) 2 mg IV Q4H PRN PRN Reason: SEVERE PAIN 7-10 PAIN SCALE Hydromorphone HCl (Dilaudid) 2 mg SUBCUT Q4H PRN PRN Reason: SEVERE PAIN 7-10 PAIN SCALE Ipratropium [place] (Atrovent) 0.5 mg INH Q6H [facility] Ipratropium [place]env[place] (Atrovent) 0.5 mg INH Q6H PRN PRN Reason: COPD Last Admin: 05/26/18 00:24 Dose: 0.5 mg Lactulose (Chronulac) 10 gm PO ONETIME ONE Stop: 05/17/18 08:01 Last Admin: 05/17/18 08:24 Dose: 10 gm Levothyroxine Sodium (Synthroid) 100 mcg PO ACBREAKFAST [facility] Methadone HCl (Methadone) 40 mg PO BID PRN PRN Reason: Pain Last Admin: 05/13/18 20:18 Dose: 40 mg Methadone HCl (Methadone) 30 mg PO TID PRN PRN Reason: PAIN Last Admin: 05/14/18 23:56 Dose: 30 mg Magic Mouth Wash ( Lidcaine/Magal/Nystatin( 10 each PO BID [facility] Last Admin: 05/20/18 07:48 Dose: Not Given Magic Mouth Wash ( Lidcaine/Magal/Nystatin( 10 each PO BID PRN PRN Reason: mouth sores Lansoprazole 30mg Dr (Capsule) 1 each PO ACBREAKFAST [facility] Last Admin: 05/22/18 20:13 Dose: Not Given Nystatin (Mycostatin) Confirm Administered Dose 5 ml .ROUTE .STK-MED ONE Stop: 05/14/18 19:56 Last Admin: 05/14/18 20:48 Dose: Not Given Pantoprazole Sodium (Protonix) 40 mg PO BIDAC [facility] Last Admin: 05/19/18 07:40 Dose: Not Given Polyethylene Glycol (Miralax) 17 gm PO QPM [facility] Last Admin: 05/30/18 21:06 Dose: Not Given Tuberculin PPD (Aplisol) 5 unit IDERM ONETIME ONE Stop: 05/12/18 16:57 Last Admin: 05/13/18 17:49 Dose: Not Given - Exam General: Alert, Oriented, Cooperative HEENT: Pupils Equal, Pupils Reactive, EOMI Neck: Supple Lungs: Clear to Auscultation, Normal Respiratory Effort Cardiovascular: Regular Rate, Regular Rhythm GI/Abdominal Exam: Normal Bowel Sounds Back Exam: Normal Inspection Extremities: Normal Inspection Peripheral Pulses: 2+: Dorsalis Pedis (L), Dorsalis Pedis (R) Skin: Warm, Dry, Intact Wound/Incisions: Healing Well Neurological: No New Focal Deficit Psy/Mental Status: Alert, Normal Affect, Anxious - Problem List & Annotations (1) Weakness SNOMED Code(s): 13951630 Code(s): R53.1 - WEAKNESS Status: Acute Priority: High Current Visit: Yes (2) Subcapital fracture of neck of right femur SNOMED Code(s): 669509191 Code(s): S72.011A - UNSP INTRACAPSULAR FRACTURE OF RIGHT FEMUR, INIT FOR CLOS FX Status: Acute Priority: High Current Visit: Yes Qualifiers: Encounter type: initial encounter Fracture type: closed Qualified Code(s) : S72.011A - Unspecified intracapsular fracture of right femur, initial encounter for closed fracture - Problem List Review Problem List Initiated/Reviewed/Updated: Yes - Plan Plan:: Patient admitted to Swing bed for subacute rehab with PT/OT and f/u with Orthopedics as scheduled. We will continue pain management. 06/01/18 Patient started on Rifampin due to positive PPD and then positive Quantiferon and discussion with Infectious disease. Patient agrees to starting medication.
[2018-06-01] MEDS: Sertraline 50 MG Tab PO SCH (21:27)
[2018-06-01] MEDS: ALPRAZolam 0.25 MG Tab PO PRN (21:28)
[2018-06-01] MEDS: Ondansetron 4 MG Tab.DIS PO PRN (23:07)
[2018-06-02] MEDS: Acetaminophen/HYDROcodone 325-10 MG Tab PO PRN ×2 (02:24→13:59)
[2018-06-02] MEDS: Ipratropium 0.02% 0.5 MG/2.5 ML Neb Soln INH SCH ×5 (04:30→23:19)
[2018-06-02] MEDS: LANSOPRAZOLE 30MG DR CAPSULE PO SCH ×2 (07:25→20:41)
[2018-06-02] MEDS: Levothyroxine 25 MCG Tab PO SCH (07:28)
[2018-06-02] MEDS: Levothyroxine 100 MCG Tab PO SCH (07:28)
[2018-06-02] MEDS: Enoxaparin 40 MG/0.4 ML Syringe SUBCUT SCH (08:21)
[2018-06-02] MEDS: Fluconazole 150 MG Tab PO SCH (08:22)
[2018-06-02] MEDS: Methadone 10 MG Tab PO SCH ×3 (08:22→21:46)
[2018-06-02] MEDS: Nystatin Topical Powder 15 GM Bottle TOP SCH ×2 (08:26→21:48)
[2018-06-02] MEDS: Potassium Chloride 20 MEQ Tab.ER PO SCH (08:27)
[2018-06-02] MEDS: Calcium Carbonate/Vitamin D3 1500 MG-400 Units Tab PO SCH (08:27)
[2018-06-02] MEDS: Lisinopril 5 MG Tab PO SCH (08:35)
[2018-06-02] MEDS: Verapamil 80 MG Tab PO SCH ×3 (08:35→21:46)
[2018-06-02] MEDS: Ondansetron 4 MG Tab.DIS PO PRN (14:00)
[2018-06-02] MEDS ORDERED: Trolamine Salicylate/Aloe Vera 10% Crm 85 GM Tube TOP PRN (18:25)
[2018-06-02] MEDS ORDERED: Methadone 10 MG Tab PO ONE (20:00)
[2018-06-02] MEDS: Calcium Carbonate 500 MG Tab.Chew PO PRN (20:41)
[2018-06-02] MEDS: Sertraline 50 MG Tab PO SCH (21:46)
[2018-06-02] MEDS: ALPRAZolam 0.25 MG Tab PO PRN (22:15)
[2018-06-03] MEDS: Ipratropium 0.02% 0.5 MG/2.5 ML Neb Soln INH SCH ×3 (05:04→17:59)
[2018-06-03] MEDS: Levothyroxine 25 MCG Tab PO SCH (06:44)
[2018-06-03] MEDS: Levothyroxine 100 MCG Tab PO SCH (06:44)
[2018-06-03] MEDS: Enoxaparin 40 MG/0.4 ML Syringe SUBCUT SCH (08:18)
[2018-06-03] MEDS: Fluconazole 150 MG Tab PO SCH (08:19)
[2018-06-03] MEDS: Nystatin Topical Powder 15 GM Bottle TOP SCH ×2 (08:19→19:53)
[2018-06-03] MEDS: Lisinopril 5 MG Tab PO SCH (08:19)
[2018-06-03] MEDS: LANSOPRAZOLE 30MG DR CAPSULE PO SCH ×2 (08:19→19:46)
[2018-06-03] MEDS: Methadone 10 MG Tab PO SCH ×3 (08:20→19:45)
[2018-06-03] MEDS: Verapamil 80 MG Tab PO SCH ×3 (08:20→19:45)
[2018-06-03] MEDS: Potassium Chloride 20 MEQ Tab.ER PO SCH (08:21)
[2018-06-03] MEDS: Calcium Carbonate/Vitamin D3 1500 MG-400 Units Tab PO SCH (08:21)
[2018-06-03] MEDS: Ondansetron 4 MG Tab.DIS PO PRN (11:17)
[2018-06-03] MEDS: Sertraline 50 MG Tab PO SCH (19:45)
[2018-06-04] MEDS: Ipratropium 0.02% 0.5 MG/2.5 ML Neb Soln INH SCH ×6 (00:09→18:32)
[2018-06-04] MEDS: Calcium Carbonate 500 MG Tab.Chew PO PRN ×2 (00:09→20:31)
[2018-06-04] MEDS: Ondansetron 4 MG Tab.DIS PO PRN ×2 (00:10→20:32)
[2018-06-04] MEDS: ALPRAZolam 0.25 MG Tab PO PRN (00:10)
[2018-06-04] MEDS: Enoxaparin 40 MG/0.4 ML Syringe SUBCUT SCH (07:54)
[2018-06-04] MEDS: Verapamil 80 MG Tab PO SCH ×3 (07:54→21:29)
[2018-06-04] MEDS: Methadone 10 MG Tab PO SCH ×3 (07:54→21:29)
[2018-06-04] MEDS: Fluconazole 150 MG Tab PO SCH (07:54)
[2018-06-04] MEDS: Potassium Chloride 20 MEQ Tab.ER PO SCH (07:54)
[2018-06-04] MEDS: Calcium Carbonate/Vitamin D3 1500 MG-400 Units Tab PO SCH (07:55)
[2018-06-04] MEDS: LANSOPRAZOLE 30MG DR CAPSULE PO SCH ×2 (07:58→20:30)
[2018-06-04] MEDS: Lisinopril 5 MG Tab PO SCH (07:59)
[2018-06-04] MEDS: Levothyroxine 25 MCG Tab PO SCH (08:02)
[2018-06-04] MEDS: Levothyroxine 100 MCG Tab PO SCH (08:02)
[2018-06-04] MEDS: Nystatin Topical Powder 15 GM Bottle TOP SCH ×2 (08:03→21:30)
[2018-06-04] MEDS: Sertraline 50 MG Tab PO SCH (21:29)
[2018-06-05] MEDS: Fluconazole 150 MG Tab PO SCH (09:20)
[2018-06-05] MEDS: Lisinopril 5 MG Tab PO SCH (09:21)
[2018-06-05] MEDS: LANSOPRAZOLE 30MG DR CAPSULE PO SCH ×2 (09:21→20:38)
[2018-06-05] MEDS: Levothyroxine 100 MCG Tab PO SCH (09:22)
[2018-06-05] MEDS: Potassium Chloride 20 MEQ Tab.ER PO SCH (09:22)
[2018-06-05] MEDS: Verapamil 80 MG Tab PO SCH ×3 (09:23→21:45)
[2018-06-05] MEDS: Levothyroxine 25 MCG Tab PO SCH (09:23)
[2018-06-05] MEDS: Methadone 10 MG Tab PO SCH ×3 (09:23→21:45)
[2018-06-05] MEDS: Calcium Carbonate/Vitamin D3 1500 MG-400 Units Tab PO SCH (09:24)
[2018-06-05] MEDS: Enoxaparin 40 MG/0.4 ML Syringe SUBCUT SCH (09:26)
[2018-06-05] MEDS: Nystatin Topical Powder 15 GM Bottle TOP SCH ×2 (09:28→21:52)
[2018-06-05] MEDS: Ipratropium 0.02% 0.5 MG/2.5 ML Neb Soln INH SCH ×3 (09:28→18:29)
[2018-06-05] MEDS: Lactulose Soln 10 GM/15 ML 15 ML UD Cup PO PRN (14:16)
[2018-06-05] MEDS: Ondansetron 4 MG Tab.DIS PO PRN (15:22)
[2018-06-05] MEDS: Acetaminophen/HYDROcodone 325-10 MG Tab PO PRN (15:22)
[2018-06-05] MEDS: Calcium Carbonate 500 MG Tab.Chew PO PRN (20:38)
[2018-06-05] MEDS: Sertraline 50 MG Tab PO SCH (21:44)
[2018-06-05] MEDS: ALPRAZolam 0.25 MG Tab PO PRN (21:50)
[2018-06-06] MEDS: Ipratropium 0.02% 0.5 MG/2.5 ML Neb Soln INH SCH ×4 (01:07→18:27)
[2018-06-06] MEDS ORDERED: Rifampin 300 MG Cap ONE (08:52)
[2018-06-06] MEDS: Calcium Carbonate 500 MG Tab.Chew PO PRN ×2 (08:58→20:15)
[2018-06-06] MEDS: Methadone 10 MG Tab PO SCH ×3 (08:58→21:30)
[2018-06-06] MEDS: LANSOPRAZOLE 30MG DR CAPSULE PO SCH ×2 (08:58→19:22)
[2018-06-06] MEDS: Calcium Carbonate/Vitamin D3 1500 MG-400 Units Tab PO SCH (09:00)
[2018-06-06] MEDS: Levothyroxine 100 MCG Tab PO SCH (09:00)
[2018-06-06] MEDS: Levothyroxine 25 MCG Tab PO SCH (09:00)
[2018-06-06] MEDS: Lisinopril 5 MG Tab PO SCH (09:01)
[2018-06-06] MEDS: Potassium Chloride 20 MEQ Tab.ER PO SCH (09:04)
[2018-06-06] MEDS: Verapamil 80 MG Tab PO SCH ×3 (09:04→21:31)
[2018-06-06] MEDS: Fluconazole 150 MG Tab PO SCH (09:05)
[2018-06-06] MEDS: Enoxaparin 40 MG/0.4 ML Syringe SUBCUT SCH (09:05)
[2018-06-06] MEDS: Nystatin Topical Powder 15 GM Bottle TOP SCH ×2 (09:05→21:26)
[2018-06-06] MEDS: Lactulose Soln 10 GM/15 ML 15 ML UD Cup PO PRN (18:26)
[2018-06-06] MEDS: Ondansetron 4 MG Tab.DIS PO PRN (18:26)
[2018-06-06] MEDS: Sertraline 50 MG Tab PO SCH (21:31)
[2018-06-06] MEDS: ALPRAZolam 0.25 MG Tab PO PRN (22:18)
[2018-06-07] MEDS: Ipratropium 0.02% 0.5 MG/2.5 ML Neb Soln INH SCH ×4 (00:05→18:23)
[2018-06-07] MEDS: Levothyroxine 100 MCG Tab PO SCH (06:57)
[2018-06-07] MEDS: Levothyroxine 25 MCG Tab PO SCH (06:57)
[2018-06-07] MEDS ORDERED: Rifampin 300 MG Cap ONE (07:17)
[2018-06-07] MEDS: Lisinopril 5 MG Tab PO SCH (09:14)
[2018-06-07] MEDS: Fluconazole 150 MG Tab PO SCH (09:14)
[2018-06-07] MEDS: Potassium Chloride 20 MEQ Tab.ER PO SCH (09:15)
[2018-06-07] MEDS: Verapamil 80 MG Tab PO SCH ×3 (09:15→20:29)
[2018-06-07] MEDS: Methadone 10 MG Tab PO SCH ×3 (09:15→20:30)
[2018-06-07] MEDS: Calcium Carbonate/Vitamin D3 1500 MG-400 Units Tab PO SCH (09:15)
[2018-06-07] MEDS: Enoxaparin 40 MG/0.4 ML Syringe SUBCUT SCH (09:16)
[2018-06-07] MEDS: LANSOPRAZOLE 30MG DR CAPSULE PO SCH ×3 (09:16→20:31)
[2018-06-07] MEDS: Nystatin Topical Powder 15 GM Bottle TOP SCH ×2 (09:17→21:20)
[2018-06-07] MEDS: Calcium Carbonate 500 MG Tab.Chew PO PRN ×3 (09:19→18:57)
[2018-06-07] MEDS: Ondansetron 4 MG Tab.DIS PO PRN ×2 (09:40→16:59)
[2018-06-07] MEDS: Acetaminophen/HYDROcodone 325-10 MG Tab PO PRN (12:06)
[2018-06-07] MEDS ORDERED: Methadone 10 MG Tab ONE (13:27)
[2018-06-07] MEDS: Sertraline 50 MG Tab PO SCH (20:29)
[2018-06-07] MEDS: ALPRAZolam 0.25 MG Tab PO PRN (23:03)
[2018-06-07] MEDS: Lactulose Soln 10 GM/15 ML 15 ML UD Cup PO PRN (23:04)
[2018-06-08] MEDS: Ipratropium 0.02% 0.5 MG/2.5 ML Neb Soln INH SCH ×3 (00:44→12:18)
[2018-06-08] MEDS: Acetaminophen/HYDROcodone 325-10 MG Tab PO PRN (02:54)
[2018-06-08] MEDS: Calcium Carbonate 500 MG Tab.Chew PO PRN ×4 (03:01→14:21)
[2018-06-08] MEDS: Lactulose Soln 10 GM/15 ML 15 ML UD Cup PO PRN (06:08)
[2018-06-08] MEDS: Levothyroxine 100 MCG Tab PO SCH (06:09)
[2018-06-08] MEDS: Levothyroxine 25 MCG Tab PO SCH (06:09)
[2018-06-08] MEDS ORDERED: Rifampin 300 MG Cap ONE (08:52)
[2018-06-08 09:02] VITALS: BP 139/59
[2018-06-08] MEDS: LANSOPRAZOLE 30MG DR CAPSULE PO SCH (09:02)
[2018-06-08] MEDS: Calcium Carbonate/Vitamin D3 1500 MG-400 Units Tab PO SCH (09:03)
[2018-06-08] MEDS: Methadone 10 MG Tab PO SCH ×2 (09:03→14:21)
[2018-06-08] MEDS: Verapamil 80 MG Tab PO SCH ×2 (09:03→14:21)
[2018-06-08] MEDS: Potassium Chloride 20 MEQ Tab.ER PO SCH (09:03)
[2018-06-08] MEDS: Lisinopril 5 MG Tab PO SCH (09:03)
[2018-06-08] MEDS: Fluconazole 150 MG Tab PO SCH (09:06)
[2018-06-08] MEDS: Enoxaparin 40 MG/0.4 ML Syringe SUBCUT SCH (09:08)
[2018-06-08] MEDS: Nystatin Topical Powder 15 GM Bottle TOP SCH (09:08)
[2018-06-08] MEDS: Ergocalciferol (Vitamin D2) 50,000 Unit Cap PO SCH (12:17)
--- NOTE | 2018-06-08 17:19 | PCM.DCSUM1 ---
Discharge Summary - Discharge Data Discharge Date: 06/08/18 Discharge Disposition: DC/Tfer to Other 70 Condition: Good - Discharge Diagnosis/Problem(s) (1) Weakness SNOMED Code(s): 71218544 ICD Code: R53.1 - WEAKNESS Status: Acute Priority: High (2) Subcapital fracture of neck of right femur SNOMED Code(s): 999261611 ICD Code: S72.011A - UNSP INTRACAPSULAR FRACTURE OF RIGHT FEMUR, INIT FOR CLOS FX Status: Acute Priority: High Qualifiers: Encounter type: initial encounter Fracture type: closed Qualified Code(s) : S72.011A - Unspecified intracapsular fracture of right femur, initial encounter for closed fracture - Patient Summary/Data Consults: Consultations 05/12/18 16:56 Consult to Home Health [CONS] Routine Comment: Physician Instructions: OT Evaluation and Treatment [CONS] Routine Please Evaluate and Treat. OT Reason for Consult: ADL's This query below is only for informational purposes and is not editable. Admission Diagnosis/Problem: Weakness PT Evaluation and Treatment [CONS] Routine Please Evaluate and Treat. PT Reason for Consult: Ambulation This query below is only for informational purposes and is not editable. Admission Diagnosis/Problem: Weakness - Patient Instructions Diet: Regular Diet as Tolerated Activity: As Tolerated - Discharge Plan Home Medications: Home Meds ALPRAZolam [Alprazolam] 1 mg PO QID PRN 03/03/15 [History] Lansoprazole 30 mg PO BID 03/03/15 [History] Levothyroxine [Sythroid] 125 mcg PO DAILY 03/03/15 [History] Lisinopril 5 mg PO DAILY 03/03/15 [History] Methadone HCl [Methadone] 30 mg PO BID PRN 03/03/15 [History] Ondansetron 8 mg PO TID PRN 03/03/15 [History] Polyethylene Glycol 3350 [MiraLAX] 17 gm PO QPM 03/03/15 [History] Verapamil HCl 80 mg PO TID 03/03/15 [History] Hyoscyamine [Hyomax-SL] 0.125 mg SL Q4H PRN 04/09/17 [History] Ipratropium [Atrovent HFA] 12.9 gm IH Q6H PRN 04/09/17 [History] Meclizine [Antivert] 25 mg PO Q6H PRN 04/09/17 [History] Potassium Chloride 20 meq PO DAILY 04/09/17 [History] Sertraline [Zoloft] 150 mg PO BEDTIME 04/09/17 [History] Fluconazole [Diflucan] 150 mg PO DAILY 05/06/18 [History] Betamethasone/Clotrimazole [Lotrisone] 15 gm TOP BID PRN 05/12/18 [History] Calcium Carb/Vit D3/Minerals [Calcium 600+D Plus Minerals] 400 mg PO DAILY 05/12 [History] Diphenhyd/Lidocaine/MagAl/Jeny [First-Mouthwash BLM Susp] 237 ml MM TID PRN [History] Enoxaparin [Lovenox] 40 mg SUBCUT DAILY 05/12/18 [History] Ergocalciferol (Vitamin D2) [Drisdol] 50,000 unit PO WEEKLY 05/12/18 [History] Naloxone HCl [Narcan] 4 mg NS ASDIRECTED PRN 05/12/18 [History] - Discharge Summary/Plan Comment DC Time >30 min.: Yes Discharge Summary/Plan Comment: Counseled on current meds and management. Discussed further follow up with orthopedics for recheck healing and outpatient PT/OT when she is able to increase weight bearing. Continue rifampin as directed although patient is very hesitant. - Patient Data Vitals - Most Recent: Last Vital Signs Temp 36.7 C 06/08/18 09:00 Pulse 81 06/08/18 09:00 Resp 18 06/08/18 09:00 BP 139/59 L 06/08/18 09:03 Pulse Ox 97 06/08/18 09:00 Weight - Most Recent: 80.014 kg Med Orders - Current: Current Medications Hydrocodone Bitart/Acetaminophen ([place] 325-10 Mg) 1 tab PO Q4H PRN PRN Reason: Pain (severe 7-10) Last Admin: 06/08/18 02:54 Dose: 1 tab Al Hydroxide/Mg Hydroxide (Gi Cocktail) 30 ml PO DAILY PRN PRN Reason: Abdominal Pain Last Admin: 05/22/18 20:10 Dose: 30 ml Alprazolam (Xanax) 1 mg PO QID PRN PRN Reason: Anxiety Last Admin: 06/07/18 23:03 Dose: 1 mg Calcium Carbonate (Caltrate 600+D 1500 Mg-400 Units) 1 tab PO DAILY [facility] Last Admin: 06/08/18 09:03 Dose: 1 tab Calcium Carbonate/Glycine (Tums) 1,000 mg PO Q2HR PRN PRN Reason: Indigestion Last Admin: 06/08/18 14:21 Dose: 1,000 mg Enoxaparin Sodium (Lovenox) 40 mg SUBCUT DAILY [facility] Last Admin: 06/08/18 09:08 Dose: 40 mg Ergocalciferol (Vitamin D2) 50,000 units PO Mo [facility] Last Admin: 06/01/18 09:06 Dose: 50,000 units Fluconazole (Diflucan) 150 mg PO DAILY [facility] Last Admin: 06/08/18 09:06 Dose: 150 mg Hydromorphone HCl (Dilaudid) 1 mg SUBCUT Q4H PRN PRN Reason: SEVERE PAIN 7-10 PAIN SCALE Ipratropium Coden (Atrovent) 0.5 mg INH Q6H [facility] Last Admin: 06/08/18 12:18 Dose: Not Given Lactulose (Chronulac) 10 gm PO QID PRN PRN Reason: Constipation Last Admin: 06/08/18 06:08 Dose: 10 gm Levothyroxine Sodium (Levothyroxine) 25 mcg PO ACBREAKFAST [facility] Last Admin: 06/08/18 06:09 Dose: 25 mcg Levothyroxine Sodium (Synthroid) 100 mcg PO ACBREAKFAST [facility] Last Admin: 06/08/18 06:09 Dose: 100 mcg Lisinopril (Prinivil) 5 mg PO DAILY [facility] Last Admin: 06/08/18 09:03 Dose: 5 mg Meclizine HCl (Antivert) 25 mg PO Q6H PRN PRN Reason: Dizziness Last Admin: 06/04/18 15:08 Dose: 25 mg Methadone HCl (Methadone) 30 mg PO TID [facility] Last Admin: 06/08/18 14:21 Dose: 30 mg Non-Formulary Medication (Hyoscyamine [Hyomax-Sl]) 0.125 mg SL Q4H PRN PRN Reason: Cramping Last Admin: 05/15/18 18:27 Dose: 0.125 [address] (Capsule) 1 each PO BID [facility] Last Admin: 06/08/18 09:02 Dose: 1 each Magic Mouth Wash ( Lidcaine/Magal/Nystatin 10 each PO QID PRN PRN Reason: mouth sores Last Admin: 05/29/18 10:10 Dose: 10 each Rifampin 300 Mg (Capsules) 2 each PO DAILY [facility] Last Admin: 06/08/18 09:03 Dose: 2 each Nystatin (Nystop) 1 gm TOP BID [facility] Last Admin: 06/08/18 09:08 Dose: 1 applic Ondansetron HCl (Zofran Odt) 8 mg PO TID PRN PRN Reason: Nausea Last Admin: 06/07/18 16:59 Dose: 8 mg Potassium Chloride (Klor-Con M20) 20 meq PO DAILY [facility] Last Admin: 06/08/18 09:03 Dose: 20 meq Sertraline HCl (Zoloft) 150 mg PO BEDTIME [facility] Last Admin: 06/07/18 20:29 Dose: 150 mg Trolamine Salicylate (Aspercreme 10%) 0 gm TOP Q1H PRN PRN Reason: Pain/Fever Last Admin: 06/06/18 03:09 Dose: 1 applic Verapamil HCl (Calan) 80 mg PO TID [facility] Last Admin: 06/08/18 14:21 Dose: 80 mg Discontinued Medications Albuterol/Ipratropium (Duoneb 3.0-0.5 Mg/3 Ml) 3 ml NEB QID [facility] Last Admin: 05/26/18 16:33 Dose: Not Given Alprazolam (Xanax) Confirm Administered Dose 1 mg .ROUTE .STK-MED ONE Stop: 05/24/18 22:00 Last Admin: 05/27/18 02:32 Dose: Not Given Calcium Carbonate/Glycine (Tums) Confirm Administered Dose 500 mg .ROUTE .STK- MED ONE Stop: 05/24/18 14:26 Last Admin: 05/27/18 02:32 Dose: Not Given Fluconazole (Diflucan) 150 mg PO DAILY [facility] Stop: 05/21/18 23:59 Last Admin: 05/21/18 08:08 Dose: 150 mg Fluconazole (Diflucan) Confirm Administered Dose 150 mg .ROUTE .STK-MED ONE Stop: 05/25/18 20:24 Last Admin: 05/25/18 20:37 Dose: Not Given Hydromorphone HCl (Dilaudid) Confirm Administered Dose 2 mg .ROUTE .STK-MED ONE Stop: 05/12/18 21:39 Last Admin: 05/12/18 22:54 Dose: Not Given Hydromorphone HCl (Dilaudid) 1 mg SUBCUT ONETIME ONE Stop: 05/12/18 21:51 Last Admin: 05/12/18 21:50 Dose: 1 mg Hydromorphone HCl (Dilaudid) 2 mg IV Q4H PRN PRN Reason: SEVERE PAIN 7-10 PAIN SCALE Hydromorphone HCl (Dilaudid) 2 mg SUBCUT Q4H PRN PRN Reason: SEVERE PAIN 7-10 PAIN SCALE Ipratropium Coden (Atrovent) 0.5 mg INH Q6H [facility] Ipratropium Coden (Atrovent) 0.5 mg INH Q6H PRN PRN Reason: COPD Last Admin: 05/26/18 00:24 Dose: 0.5 mg Ipratropium Coden (Atrovent) 0.5 mg INH Q6H [facility] Last Admin: 06/02/18 21:56 Dose: 0.5 mg Lactulose (Chronulac) 10 gm PO ONETIME ONE Stop: 05/17/18 08:01 Last Admin: 05/17/18 08:24 Dose: 10 gm Levothyroxine Sodium (Synthroid) 100 mcg PO ACBREAKFAST [facility] Methadone HCl (Methadone) 40 mg PO BID PRN PRN Reason: Pain Last Admin: 05/13/18 20:18 Dose: 40 mg Methadone HCl (Methadone) 30 mg PO TID PRN PRN Reason: PAIN Last Admin: 05/14/18 23:56 Dose: 30 mg Methadone HCl (Methadone) 10 mg PO NOW ONE Stop: 06/02/18 20:01 Last Admin: 06/02/18 21:47 Dose: 10 mg Methadone HCl (Methadone) Confirm Administered Dose 10 mg .ROUTE .STK-MED ONE Stop: 06/07/18 13:28 Last Admin: 06/07/18 13:37 Dose: Not Given Magic Mouth Wash ( Lidcaine/Magal/Nystatin( 10 each PO BID [facility] Last Admin: 05/20/18 07:48 Dose: Not Given Magic Mouth Wash ( Lidcaine/Magal/Nystatin( 10 each PO BID PRN PRN Reason: mouth sores Lansoprazole 30mg Dr (Capsule) 1 each PO ACBREAKFAST [facility] Last Admin: 05/22/18 20:13 Dose: Not Given Rifampin 300 Mg 0 each PO DAILY [facility] Stop: 09/27/18 15:01 Last Admin: 06/01/18 08:52 Dose: 600 each Nystatin (Mycostatin) Confirm Administered Dose 5 ml .ROUTE .STK-MED ONE Stop: 05/14/18 19:56 Last Admin: 05/14/18 20:48 Dose: Not Given Pantoprazole Sodium (Protonix) 40 mg PO BIDAC [facility] Last Admin: 05/19/18 07:40 Dose: Not Given Polyethylene Glycol (Miralax) 17 gm PO QPM [facility] Last Admin: 05/30/18 21:06 Dose: Not Given Rifampin (Rifampin) Confirm Administered Dose 300 mg .ROUTE .STK-MED ONE Stop: 06/06/18 08:53 Last Admin: 06/06/18 09:00 Dose: 300 mg Rifampin (Rifampin) Confirm Administered Dose 300 mg .ROUTE .STK-MED ONE Stop: 06/07/18 07:18 Last Admin: 06/07/18 09:16 Dose: Not Given Rifampin (Rifampin) Confirm Administered Dose 300 mg .ROUTE .STK-MED ONE Stop: 06/08/18 08:53 Last Admin: 06/08/18 09:10 Dose: Not Given Tuberculin PPD (Aplisol) 5 unit IDERM ONETIME ONE Stop: 05/12/18 16:57 Last Admin: 05/13/18 17:49 Dose: Not Given
== END 2018-06-08 16:14 | disposition other institution (70) | DRG 948 ==
LOC: UNDOADMIN 05-12 16:42 → LB.MS 05-12 16:42
PROVIDERS: ADMIT Family Medicine; ATTEND Family Medicine
DX: R53.1 Weakness (principal); B48.8 Other specified mycoses; S72.011D Unspecified intracapsular fracture of right femur, subsequent encounter for closed fracture with routine healing; Z98.890 Other specified postprocedural states; J44.9 Chronic obstructive pulmonary disease, unspecified; E03.9 Hypothyroidism, unspecified; M79.7 Fibromyalgia; Z85.828 Personal history of other malignant neoplasm of skin; F32.9 Major depressive disorder, single episode, unspecified; Z11.1 Encounter for screening for respiratory tuberculosis; R76.11 Nonspecific reaction to tuberculin skin test without active tuberculosis; Z88.1 Allergy status to other antibiotic agents; Z88.5 Allergy status to narcotic agent; Z88.0 Allergy status to penicillin; Z88.8 Allergy status to other drugs, medicaments and biological substances; Z79.01 Long term (current) use of anticoagulants
CPT/HCPCS: 36415; 71046; 71250; 73502-RT; 74176; 80053; 81001; 85025; 85610; 85730; 86480; 86580; 97110-GO; 97110-GP; 97116-GP; 97161-GP; 97165-GO; 97530-GO; 97530-GP; 97535-GO; A9270-GY; J1170; J1650; J7620-GY

== ENCOUNTER 2018-06-08 10:12 | Inpatient (IN) | payer SELFPAY ==
--- NOTE | 2018-06-08 17:20 | PCM.HP ---
H&P History of Present Illness - General Date of Service: 06/08/18 Admit Problem/Dx: Admission Diagnosis/Problem Admission Diagnosis/Problem Weakness - History of Present Illness Initial Comments - Free Text/Narative: This is a 72yo F who was admitted to swing bed for rehabilitation but was unable to progress with PT/OT due to restrictions of 33% weight bearing of the fracture. Patient agreed to stay in Respite care as she is unable to care for herself nevertheless her at home. Duration of Symptoms: Reports: Constant Abdomen Pain Score (Numeric/FACES): 5 - Related Data Allergies/Adverse Reactions: Allergies Allergy/AdvReac Type Severity Reaction Status Date / Time albuterol Allergy Cannot Verified 06/08/18 18:40 Remember azithromycin Allergy Hives Verified 06/08/18 18:40 Beta-Adrenergic Agents Allergy Hives, Verified 06/08/18 18:40 wheezing/bronchospasm budesonide Allergy Tachycardia, Verified 06/08/18 18:40 cough bupropion Allergy unknown Verified 06/08/18 18:40 buspirone [From BuSpar] Allergy unknown Verified 06/08/18 18:40 cephalexin monohydrate Allergy Other Verified 06/08/18 18:40 [From Keflex] clarithromycin [From Biaxin] Allergy Edema Verified 06/08/18 18:40 codeine Allergy Nausea and Verified 06/08/18 18:40 Vomiting duloxetine Allergy Other Verified 06/08/18 18:40 fentanyl [From Duragesic] Allergy Other Verified 06/08/18 18:40 gabapentin Allergy Other Verified 06/08/18 18:40 hydromorphone [From Dilaudid] Allergy unknown Verified 06/08/18 18:40 hylan G-F 20 Allergy Other Verified 06/08/18 18:40 methylprednisolone Allergy Tachycardia Verified 06/08/18 18:40 mirtazapine Allergy unknown Verified 06/08/18 18:40 morphine Allergy Difficulty Verified 06/08/18 18:40 Breathing neomycin Allergy Hives Verified 06/08/18 18:40 olanzapine Allergy unknown Verified 06/08/18 18:40 Penicillins Allergy Cannot Verified 06/08/18 18:40 Remember pregabalin Allergy Other Verified 06/08/18 18:40 rofecoxib [From Vioxx] Allergy Cannot Verified 06/08/18 18:40 Remember senna Allergy Cannot Verified 06/08/18 18:40 Remember sulfamethoxazole Allergy unknown Verified 06/08/18 18:40 tiotropium Allergy Tachycardia Verified 06/08/18 18:40 [From Spiriva with HandiHaler] trimethoprim Allergy unknown Verified 06/08/18 18:40 valsartan [From Diovan] Allergy Vomiting Verified 06/08/18 18:40 zolpidem [From Ambien] Allergy unkown Verified 06/08/18 18:40 zinc oratate Allergy Other Uncoded 06/08/18 18:40 Home Medications: Home Meds ALPRAZolam [Alprazolam] 1 mg PO QID PRN 03/03/15 [History] Lansoprazole 30 mg PO BID 03/03/15 [History] Levothyroxine [Sythroid] 125 mcg PO DAILY 03/03/15 [History] Lisinopril 5 mg PO DAILY 03/03/15 [History] Methadone HCl [Methadone] 30 mg PO BID PRN 03/03/15 [History] Ondansetron 8 mg PO TID PRN 03/03/15 [History] RX: Polyethylene Glycol 3350 [MiraLAX] 17 gm PO QPM 03/03/15 [History] RX: Verapamil HCl 80 mg PO TID 03/03/15 [History] Hyoscyamine [Hyomax-SL] 0.125 mg SL Q4H PRN 04/09/17 [History] Ipratropium [Atrovent HFA] 12.9 gm IH Q6H PRN 04/09/17 [History] Meclizine [Antivert] 25 mg PO Q6H PRN 04/09/17 [History] RX: Potassium Chloride 20 meq PO DAILY 04/09/17 [History] Sertraline [Zoloft] 150 mg PO BEDTIME 04/09/17 [History] RX: Fluconazole [Diflucan] 150 mg PO DAILY 05/06/18 [History] Betamethasone/Clotrimazole [Lotrisone] 15 gm TOP BID PRN 05/12/18 [History] Calcium Carb/Vit D3/Minerals [Calcium 600+D Plus Minerals] 400 mg PO DAILY 05/12 [History] Diphenhyd/Lidocaine/MagAl/Jney [First-Mouthwash BLM Susp] 237 ml MM TID PRN [History] Enoxaparin [Lovenox] 40 mg SUBCUT DAILY 05/12/18 [History] Ergocalciferol (Vitamin D2) [Drisdol] 50,000 unit PO WEEKLY 05/12/18 [History] Naloxone HCl [Narcan] 4 mg NS ASDIRECTED PRN 05/12/18 [History] Past Medical History HEENT History: Reports: Cataract Other HEENT History: currently has oral fungal infection Cardiovascular History: Reports: Arrhythmia, Other (See Below) Other Cardiovascular History: tachycardia, leaky heart valve. Respiratory History: Reports: Asthma, COPD Gastrointestinal History: Reports: Other (See Below) Other Gastrointestinal History: stones in bile duct Genitourinary History: Reports: Other (See Below) Other Genitourinary History: hx of inabilty to void and self cathaterization [employer] History: Reports: Musculoskeletal History: Reports: Fibromyalgia Psychiatric History: Reports: Depression Endocrine/Metabolic History: Reports: Hypothyroidism Oncologic (Cancer) History: Reports: Basal Cell Carcinoma Dermatologic History: Reports: Other (See Below) Other Dermatologic History: easily bruises, - Infectious Disease History Infectious Disease History: Reports: Chicken Pox, Shingles - Past Surgical History HEENT Surgical History: Reports: None Respiratory Surgical History: Reports: None GI Surgical History: Reports: Cholecystectomy Female Surgical History: Reports: Hysterectomy Social & Family History - Family History Family Medical History: Noncontributory - Caffeine Use Caffeine Use: Reports: Coffee H&P Review of Systems - Review of Systems: Review Of Systems: ROS reveals no pertinent complaints other than HPI. Exam - Exam Exam: See Below - Vital Signs Weight: 80.104 kg - Exam General: Alert, Oriented, Cooperative HEENT: PERRLA, Conjunctiva Clear, EACs Clear, EOMI Neck: Supple, Trachea Midline Lungs: Clear to Auscultation, Normal Respiratory Effort Cardiovascular: Regular Rate, Regular Rhythm GI/Abdominal Exam: Normal Bowel Sounds, Soft, Non-Tender Extremities: Leg Pain Peripheral Pulses: 2+: Dorsalis Pedis (L), Dorsalis Pedis (R) Skin: Warm, Dry, Intact Neurological: Cranial Nerves Intact, Reflexes Equal Bilateral Neuro Extensive - Mental Status: Alert, Oriented x3, Normal Mood/Affect, Normal Cognition, Memory Intact Psychiatric: Alert, Anxious - Patient Data Result Diagrams: 06/09/18 15:45 06/09/18 15:45 - Problem List (1) Subcapital fracture of neck of right femur SNOMED Code(s): 904570923 ICD Code: S72.011A - UNSP INTRACAPSULAR FRACTURE OF RIGHT FEMUR, INIT FOR CLOS FX Status: Acute Priority: High Current Visit: No Qualifiers: Encounter type: initial encounter Fracture type: closed Qualified Code(s) : S72.011A - Unspecified intracapsular fracture of right femur, initial encounter for closed fracture (2) Weakness SNOMED Code(s): 24647681 ICD Code: R53.1 - WEAKNESS Status: Acute Priority: High Current Visit: No Problem List Initiated/Reviewed/Updated: Yes Orders Last 24hrs: Active Orders 24 hr Category Date Time Status Patient Status [ADT] Routine ADT 06/08/18 16:18 Active Vital Signs [RC] DAILY Care 06/08/18 16:18 Active Assessment/Plan Comment:: Patient admitted to respite care for further management and care. Continue PT/ OT if possible for maintaining strength. 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 No other medication changes at this time.
[2018-06-08] MEDS ORDERED: BETAMETHASONE TOP PRN (18:47)
[2018-06-08] MEDS ORDERED: [UNRECOGNIZED DRUG - MIXTURE] MM PRN (18:47)
[2018-06-08] MEDS ORDERED: HYOSCYAMINE 0.125 MG SL PRN (18:47)
[2018-06-08] MEDS ORDERED: CLOTRIMAZOLE TOP PRN (18:47)
[2018-06-08] MEDS ORDERED: ERGOCALCIFEROL 50000 UNIT PO SCH (19:00)
[2018-06-08] MEDS ORDERED: Pantoprazole 40 MG Tab.CR PO SCH (20:00)
[2018-06-08] MEDS ORDERED: Lactulose Soln 10 GM/15 ML 15 ML UD Cup ONE (20:27)
[2018-06-08] MEDS: Ondansetron 4 MG Tab.DIS PO PRN (20:35)
[2018-06-08] MEDS: Calcium Carbonate 500 MG Tab.Chew ONE (20:35)
[2018-06-08] MEDS: Sertraline 100 MG Tab PO SCH (21:45)
[2018-06-08] MEDS: Methadone 10 MG Tab PO PRN (21:45)
[2018-06-08] MEDS: Verapamil 80 MG Tab PO SCH (21:45)
[2018-06-09] MEDS: ALPRAZolam 0.25 MG Tab PO PRN ×2 (00:03→21:25)
[2018-06-09] MEDS ORDERED: Docusate Sodium 100 MG Cap ONE (01:51)
[2018-06-09] MEDS: Docusate Sodium 100 MG Cap PO SCH ×3 (01:52→21:19)
[2018-06-09] MEDS ORDERED: Calcium Carbonate 500 MG Tab.Chew ONE ×2 (07:52→18:46)
[2018-06-09] MEDS ORDERED: Fluconazole 150 MG Tab PO SCH (08:00)
[2018-06-09] MEDS: Calcium Carbonate 500 MG Tab.Chew ONE ×2 (08:24→18:48)
[2018-06-09] MEDS: Verapamil 80 MG Tab PO SCH ×3 (08:26→21:18)
[2018-06-09] MEDS: Ondansetron 4 MG Tab.DIS PO PRN ×2 (08:36→22:51)
[2018-06-09] MEDS: Lisinopril 5 MG Tab PO SCH (08:40)
[2018-06-09] MEDS: Potassium Chloride 20 MEQ Tab.ER PO SCH (08:40)
[2018-06-09] MEDS: LANSOPRAZOLE 30 MG PO SCH ×2 (08:49→20:21)
[2018-06-09] MEDS: Methadone 10 MG Tab PO PRN (08:50)
[2018-06-09] MEDS ORDERED: Levothyroxine 25 MCG Tab ONE (10:04)
[2018-06-09] MEDS ORDERED: Calcium Carbonate 600 MG Tab ONE (10:04)
[2018-06-09] MEDS ORDERED: Levothyroxine 100 MCG Tab ONE (10:04)
[2018-06-09] MEDS: VIT D3 PO SCH (10:09)
[2018-06-09] MEDS: CALCIUM CARB PO SCH (10:09)
[2018-06-09] MEDS: MINERALS PO SCH (10:09)
[2018-06-09] MEDS: [UNRECOGNIZED DRUG - OTHER] PO SCH (10:09)
[2018-06-09] MEDS: LEVOTHYROXINE 125 MCG PO SCH (10:11)
--- NOTE | 2018-06-09 11:36 | PCM.SN ---
- Free Text/Narrative Note: Counseled on Rifampin use and treatment of latent TB. Patient refuses and states that is is causing her to be weak and not heal. She says it is eating up her stomach and refuses to take it. Counseled on risks, side effects and benefits and patient understands the infectious nature and still refuses.
[2018-06-09] MEDS: Enoxaparin 40 MG/0.4 ML Syringe SUBCUT SCH (14:27)
[2018-06-09] MEDS: Methadone 10 MG Tab PO SCH ×2 (14:59→21:18)
[2018-06-09] MEDS: Calcium Carbonate 500 MG Tab.Chew PO PRN (20:21)
[2018-06-09] MEDS: Sertraline 100 MG Tab PO SCH (21:19)
[2018-06-09] MEDS: Lactulose Soln 10 GM/15 ML 15 ML UD Cup PO PRN (21:21)
[2018-06-09] MEDS ORDERED: Ipratropium 0.02% 0.5 MG/2.5 ML Neb Soln ONE (23:03)
[2018-06-09] MEDS: Ipratropium 0.02% 0.5 MG/2.5 ML Neb Soln NEB SCH (23:23)
[2018-06-10] MEDS: Ipratropium 0.02% 0.5 MG/2.5 ML Neb Soln NEB SCH ×4 (06:18→23:01)
[2018-06-10] MEDS ORDERED: Docusate Sodium 100 MG Cap ONE (07:46)
[2018-06-10] MEDS ORDERED: Calcium Carbonate 500 MG Tab.Chew ONE (07:46)
[2018-06-10] MEDS ORDERED: Calcium Carbonate/Vitamin D3 1500 MG-400 Units Tab ONE (07:47)
[2018-06-10] MEDS ORDERED: Levothyroxine 50 MCG Tab ONE (07:47)
[2018-06-10] MEDS ORDERED: Levothyroxine 100 MCG Tab ONE (07:48)
[2018-06-10] MEDS: Verapamil 80 MG Tab PO SCH ×3 (07:50→20:19)
[2018-06-10] MEDS: VIT D3 PO SCH (07:51)
[2018-06-10] MEDS: MINERALS PO SCH (07:51)
[2018-06-10] MEDS: CALCIUM CARB PO SCH (07:51)
[2018-06-10] MEDS: [UNRECOGNIZED DRUG - OTHER] PO SCH (07:51)
[2018-06-10] MEDS: Potassium Chloride 20 MEQ Tab.ER PO SCH (07:53)
[2018-06-10] MEDS: Docusate Sodium 100 MG Cap PO SCH ×2 (07:53→20:19)
[2018-06-10] MEDS: LANSOPRAZOLE 30 MG PO SCH ×2 (07:53→20:19)
[2018-06-10] MEDS: Methadone 10 MG Tab PO SCH ×3 (07:56→20:19)
[2018-06-10] MEDS: Enoxaparin 40 MG/0.4 ML Syringe SUBCUT SCH (07:56)
[2018-06-10] MEDS: LEVOTHYROXINE 125 MCG PO SCH (07:56)
[2018-06-10] MEDS: Lisinopril 5 MG Tab PO SCH (07:58)
[2018-06-10] MEDS: Calcium Carbonate 500 MG Tab.Chew PO PRN ×2 (08:00→17:23)
[2018-06-10] MEDS ORDERED: Acetaminophen 500 MG Tab ONE (11:51)
[2018-06-10] MEDS ORDERED: Acetaminophen 500 MG Tab PO ONE (13:22)
[2018-06-10] MEDS: Ondansetron 4 MG Tab.DIS PO PRN (17:25)
[2018-06-10] MEDS: Sertraline 100 MG Tab PO SCH (20:20)
[2018-06-11] MEDS: ALPRAZolam 0.25 MG Tab PO PRN (03:31)
[2018-06-11] MEDS: Ipratropium 0.02% 0.5 MG/2.5 ML Neb Soln NEB SCH ×2 (05:17→15:19)
[2018-06-11] MEDS ORDERED: Levothyroxine 50 MCG Tab ONE (08:48)
[2018-06-11] MEDS ORDERED: Levothyroxine 100 MCG Tab ONE (08:48)
[2018-06-11] MEDS: Lactulose Soln 10 GM/15 ML 15 ML UD Cup PO PRN (08:50)
[2018-06-11] MEDS: Enoxaparin 40 MG/0.4 ML Syringe SUBCUT SCH (08:50)
[2018-06-11] MEDS: Methadone 10 MG Tab PO SCH (08:51)
[2018-06-11] MEDS: Calcium Carbonate 500 MG Tab.Chew PO PRN (08:52)
[2018-06-11] MEDS: Lisinopril 5 MG Tab PO SCH (08:52)
[2018-06-11] MEDS: LANSOPRAZOLE 30 MG PO SCH ×2 (08:52→19:34)
[2018-06-11] MEDS: Docusate Sodium 100 MG Cap PO SCH (08:53)
[2018-06-11] MEDS: LEVOTHYROXINE 125 MCG PO SCH (08:53)
[2018-06-11] MEDS: Verapamil 80 MG Tab PO SCH (08:53)
[2018-06-11] MEDS: Potassium Chloride 20 MEQ Tab.ER PO SCH (08:53)
[2018-06-11] MEDS: [UNRECOGNIZED DRUG - OTHER] PO SCH (08:55)
[2018-06-11] MEDS: VIT D3 PO SCH (08:55)
[2018-06-11] MEDS: MINERALS PO SCH (08:55)
[2018-06-11] MEDS: CALCIUM CARB PO SCH (08:55)
[2018-06-11] MEDS ORDERED: Calcium Carbonate/Vitamin D3 1500 MG-400 Units Tab ONE (09:44)
[2018-06-11] MEDS: Ondansetron 4 MG Tab.DIS PO PRN (11:06)
[2018-06-11] MEDS: VERAPAMIL 80MG TABLET PO SCH ×2 (14:30→19:33)
[2018-06-11] MEDS: METHADONE 10 MG PO SCH ×2 (14:30→19:35)
[2018-06-11] MEDS ORDERED: ALPRAZolam 0.25 MG Tab PO PRN (14:34)
[2018-06-11] MEDS: ONDANSETRON 4 MG PO PRN (16:43)
[2018-06-11] MEDS: SERTRALINE 100 MG PO SCH (19:34)
[2018-06-12] MEDS: ONDANSETRON 4 MG PO PRN ×3 (06:06→23:54)
[2018-06-12] MEDS ORDERED: Levothyroxine 100 MCG Tab PO SCH (08:00)
[2018-06-12] MEDS ORDERED: Levothyroxine 25 MCG Tab PO SCH (08:00)
[2018-06-12] MEDS: POTASSIUM CHLORIDE 20 MEQ PO SCH (08:10)
[2018-06-12] MEDS: LEVOTHYROXINE 125 MCG PO SCH (08:12)
[2018-06-12] MEDS: VERAPAMIL 80MG TABLET PO SCH ×3 (08:12→19:42)
[2018-06-12] MEDS: LANSOPRAZOLE 30 MG PO SCH ×2 (08:12→20:50)
[2018-06-12] MEDS: LISINOPRIL 5 MG PO SCH (08:13)
[2018-06-12] MEDS: METHADONE 10 MG PO SCH ×3 (08:27→19:41)
[2018-06-12] MEDS: ENOXAPARIN 40 MG/0.4 ML SUBCUT SCH (08:29)
[2018-06-12] MEDS: Calcium Carbonate 500 MG Tab.Chew PO PRN (09:40)
[2018-06-12] MEDS ORDERED: TUMS PO PRN (12:53)
[2018-06-12] MEDS: SERTRALINE 100 MG PO SCH (19:41)
[2018-06-12] MEDS ORDERED: Acetaminophen 650 MG Tab.ER ONE (19:55)
[2018-06-12] MEDS: TUMS PO PRN (23:55)
[2018-06-13] MEDS ORDERED: Lactulose Soln 10 GM/15 ML 15 ML UD Cup ONE (00:30)
[2018-06-13] MEDS: MECLIZINE 25 MG PO PRN (02:11)
[2018-06-13] MEDS: TUMS PO PRN ×3 (08:04→18:11)
[2018-06-13] MEDS: METHADONE 10 MG PO SCH ×3 (08:05→20:00)
[2018-06-13] MEDS: LANSOPRAZOLE 30 MG PO SCH ×2 (08:06→19:58)
[2018-06-13] MEDS: VERAPAMIL 80MG TABLET PO SCH ×3 (08:06→20:01)
[2018-06-13] MEDS: MULTIVITAMIN PO SCH (08:06)
[2018-06-13] MEDS: LISINOPRIL 5 MG PO SCH (08:09)
[2018-06-13] MEDS: POTASSIUM CHLORIDE 20 MEQ PO SCH (08:09)
[2018-06-13] MEDS: LEVOTHYROXINE 125 MCG PO SCH (08:09)
[2018-06-13] MEDS ORDERED: ALPRAZolam 0.25 MG Tab ONE (08:23)
[2018-06-13] MEDS: ENOXAPARIN 40 MG/0.4 ML SUBCUT SCH (08:29)
[2018-06-13] MEDS: ONDANSETRON 4 MG PO PRN (13:06)
[2018-06-13] MEDS: SERTRALINE 100 MG PO SCH (20:04)
[2018-06-14] MEDS: LORazepam 0.5 MG Tab PO PRN ×2 (00:46→22:27)
[2018-06-14] MEDS: LANSOPRAZOLE 30 MG PO SCH ×2 (07:58→20:20)
[2018-06-14] MEDS: LEVOTHYROXINE 125 MCG PO SCH (07:58)
[2018-06-14] MEDS: LISINOPRIL 5 MG PO SCH (07:59)
[2018-06-14] MEDS: ENOXAPARIN 40 MG/0.4 ML SUBCUT SCH (07:59)
[2018-06-14] MEDS: METHADONE 10 MG PO SCH ×3 (08:00→20:19)
[2018-06-14] MEDS: POTASSIUM CHLORIDE 20 MEQ PO SCH (08:01)
[2018-06-14] MEDS: MULTIVITAMIN PO SCH (08:01)
[2018-06-14] MEDS: VERAPAMIL 80MG TABLET PO SCH ×3 (08:04→20:21)
[2018-06-14] MEDS: ONDANSETRON 4 MG PO PRN ×3 (08:05→17:00)
[2018-06-14] MEDS: TUMS PO PRN (18:44)
[2018-06-14] MEDS: SERTRALINE 100 MG PO SCH (20:20)
[2018-06-15] MEDS: TUMS PO PRN ×4 (01:37→18:37)
[2018-06-15] MEDS: LEVOTHYROXINE 125 MCG PO SCH (06:19)
[2018-06-15] MEDS: LORazepam 0.5 MG Tab PO PRN ×2 (06:19→22:03)
[2018-06-15] MEDS: METHADONE 10 MG PO SCH ×3 (08:09→19:57)
[2018-06-15] MEDS: POTASSIUM CHLORIDE 20 MEQ PO SCH (08:10)
[2018-06-15] MEDS: ENOXAPARIN 40 MG/0.4 ML SUBCUT SCH (08:11)
[2018-06-15] MEDS: VERAPAMIL 80MG TABLET PO SCH ×3 (08:11→19:56)
[2018-06-15] MEDS: LANSOPRAZOLE 30 MG PO SCH ×2 (08:12→19:58)
[2018-06-15] MEDS: MULTIVITAMIN PO SCH (08:12)
[2018-06-15] MEDS: LISINOPRIL 5 MG PO SCH (08:12)
[2018-06-15] MEDS: ONDANSETRON 4 MG PO PRN ×2 (13:31→18:38)
[2018-06-15] MEDS: SERTRALINE 100 MG PO SCH (19:55)
[2018-06-16] MEDS: ONDANSETRON 4 MG PO PRN ×2 (05:45→17:23)
[2018-06-16] MEDS: TUMS PO PRN ×2 (05:46→17:23)
[2018-06-16] MEDS: LEVOTHYROXINE 125 MCG PO SCH (06:01)
[2018-06-16] MEDS: MECLIZINE 25 MG PO PRN (06:47)
[2018-06-16] MEDS: MULTIVITAMIN PO SCH (07:48)
[2018-06-16] MEDS: LANSOPRAZOLE 30 MG PO SCH ×2 (07:49→19:34)
[2018-06-16] MEDS: POTASSIUM CHLORIDE 20 MEQ PO SCH (07:50)
[2018-06-16] MEDS: ENOXAPARIN 40 MG/0.4 ML SUBCUT SCH (07:51)
[2018-06-16] MEDS: LISINOPRIL 5 MG PO SCH (07:51)
[2018-06-16] MEDS: VERAPAMIL 80MG TABLET PO SCH ×3 (07:52→19:35)
[2018-06-16] MEDS: METHADONE 10 MG PO SCH ×3 (08:04→19:33)
[2018-06-16] MEDS: SERTRALINE 100 MG PO SCH (19:34)
[2018-06-16] MEDS: LORazepam 0.5 MG Tab PO PRN (21:56)
[2018-06-17] MEDS: ONDANSETRON 4 MG PO PRN ×2 (06:13→10:54)
[2018-06-17] MEDS: LEVOTHYROXINE 125 MCG PO SCH (06:14)
[2018-06-17] MEDS: MULTIVITAMIN PO SCH (07:38)
[2018-06-17] MEDS: LANSOPRAZOLE 30 MG PO SCH ×2 (07:39→19:42)
[2018-06-17] MEDS: VERAPAMIL 80MG TABLET PO SCH ×3 (07:39→21:00)
[2018-06-17] MEDS: POTASSIUM CHLORIDE 20 MEQ PO SCH (07:39)
[2018-06-17] MEDS: ENOXAPARIN 40 MG/0.4 ML SUBCUT SCH (07:40)
[2018-06-17] MEDS: METHADONE 10 MG PO SCH ×3 (07:40→15:28)
[2018-06-17] MEDS: LISINOPRIL 5 MG PO SCH (07:40)
[2018-06-17] MEDS: TUMS PO PRN ×2 (08:43→19:43)
[2018-06-17] MEDS ORDERED: METHADONE 10 MG PO SCH (10:15)
[2018-06-17] MEDS ORDERED: CLOTRIMAZOLE TOP PRN (15:18)
[2018-06-17] MEDS ORDERED: BETAMETHASONE TOP PRN (15:18)
[2018-06-17] MEDS ORDERED: Methadone 10 MG Tab PO SCH (16:00)
[2018-06-17] MEDS ORDERED: Mirtazapine 15 MG Tab PO SCH (20:00)
[2018-06-17] MEDS: SERTRALINE 100 MG PO SCH (21:00)
[2018-06-18] MEDS: LORazepam 0.5 MG Tab PO PRN ×2 (00:12→20:01)
[2018-06-18] MEDS: METHADONE 10 MG PO SCH ×3 (00:12→16:23)
[2018-06-18] MEDS: TUMS PO PRN ×6 (00:12→22:32)
[2018-06-18] MEDS: ONDANSETRON 4 MG PO PRN ×3 (01:32→22:32)
[2018-06-18] MEDS: LANSOPRAZOLE 30 MG PO SCH ×2 (07:34→20:01)
[2018-06-18] MEDS: LEVOTHYROXINE 125 MCG PO SCH (07:34)
[2018-06-18] MEDS: MULTIVITAMIN PO SCH (07:40)
[2018-06-18] MEDS: POTASSIUM CHLORIDE 20 MEQ PO SCH (07:41)
[2018-06-18] MEDS: ENOXAPARIN 40 MG/0.4 ML SUBCUT SCH (07:52)
[2018-06-18] MEDS: VERAPAMIL 80MG TABLET PO SCH ×3 (07:53→21:10)
[2018-06-18] MEDS: LISINOPRIL 5 MG PO SCH (07:53)
[2018-06-18] MEDS: SERTRALINE 100 MG PO SCH (21:10)
[2018-06-18] MEDS: MECLIZINE 25 MG PO PRN (22:32)
[2018-06-18] MEDS ORDERED: Meperidine PF 50 MG/ML Syringe ONE (23:42)
[2018-06-19] MEDS: METHADONE 10 MG PO SCH ×3 (01:00→15:39)
[2018-06-19] MEDS: LANSOPRAZOLE 30 MG PO SCH ×2 (08:36→20:33)
[2018-06-19] MEDS: TUMS PO PRN ×3 (08:36→17:33)
[2018-06-19] MEDS: LEVOTHYROXINE 125 MCG PO SCH (08:38)
[2018-06-19] MEDS: POTASSIUM CHLORIDE 20 MEQ PO SCH (08:38)
[2018-06-19] MEDS: VERAPAMIL 80MG TABLET PO SCH ×3 (08:38→20:30)
[2018-06-19] MEDS: LISINOPRIL 5 MG PO SCH (08:38)
[2018-06-19] MEDS: MULTIVITAMIN PO SCH (08:39)
[2018-06-19] MEDS: ENOXAPARIN 40 MG/0.4 ML SUBCUT SCH (08:40)
[2018-06-19] MEDS ORDERED: MAGIC MOUTH WASH PO PRN ×2 (10:15→11:00)
[2018-06-19] MEDS: SERTRALINE 100 MG PO SCH (20:30)
[2018-06-19] MEDS: Mirtazapine 15 MG Tab PO SCH (20:34)
[2018-06-20] MEDS: METHADONE 10 MG PO SCH ×3 (00:12→16:57)
[2018-06-20] MEDS: LANSOPRAZOLE 30 MG PO SCH ×2 (07:51→20:14)
[2018-06-20] MEDS: LISINOPRIL 5 MG PO SCH (07:51)
[2018-06-20] MEDS: TUMS PO PRN ×4 (07:51→16:57)
[2018-06-20] MEDS: POTASSIUM CHLORIDE 20 MEQ PO SCH (07:52)
[2018-06-20] MEDS: VERAPAMIL 80MG TABLET PO SCH ×3 (07:52→20:14)
[2018-06-20] MEDS: LEVOTHYROXINE 125 MCG PO SCH (07:52)
[2018-06-20] MEDS: ENOXAPARIN 40 MG/0.4 ML SUBCUT SCH (07:53)
[2018-06-20] MEDS: MULTIVITAMIN PO SCH (07:53)
[2018-06-20] MEDS: MECLIZINE 25 MG PO PRN (13:40)
[2018-06-20] MEDS: Mirtazapine 15 MG Tab PO SCH (20:14)
[2018-06-20] MEDS: SERTRALINE 100 MG PO SCH (20:14)
[2018-06-20] MEDS: POLYETHYLENE GLYCOL PO SCH (21:00)
[2018-06-21] MEDS: Lactulose Soln 10 GM/15 ML 15 ML UD Cup PO PRN (00:18)
[2018-06-21] MEDS: METHADONE 10 MG PO SCH ×3 (00:35→16:03)
[2018-06-21] MEDS: TUMS PO PRN ×3 (07:42→17:16)
[2018-06-21] MEDS: LANSOPRAZOLE 30 MG PO SCH ×2 (07:42→19:21)
[2018-06-21] MEDS: VERAPAMIL 80MG TABLET PO SCH ×3 (07:44→19:22)
[2018-06-21] MEDS: MULTIVITAMIN PO SCH (07:44)
[2018-06-21] MEDS: LISINOPRIL 5 MG PO SCH (07:44)
[2018-06-21] MEDS: LEVOTHYROXINE 125 MCG PO SCH (07:45)
[2018-06-21] MEDS: POTASSIUM CHLORIDE 20 MEQ PO SCH (07:45)
[2018-06-21] MEDS: ENOXAPARIN 40 MG/0.4 ML SUBCUT SCH (07:46)
[2018-06-21] MEDS: ONDANSETRON 4 MG PO PRN (13:41)
[2018-06-21] MEDS: SERTRALINE 100 MG PO SCH (19:21)
[2018-06-21] MEDS: Mirtazapine 15 MG Tab PO SCH (19:22)
[2018-06-21] MEDS: POLYETHYLENE GLYCOL PO SCH (19:22)
[2018-06-21] MEDS ORDERED: Simethicone 80 MG Tab.Chew ONE (19:32)
[2018-06-21] MEDS ORDERED: Simethicone 80 MG Tab.Chew PO ONE (19:42)
[2018-06-22] MEDS: METHADONE 10 MG PO SCH ×4 (00:30→23:56)
[2018-06-22] MEDS: LORazepam 0.5 MG Tab PO PRN (03:17)
[2018-06-22] MEDS: TUMS PO PRN ×5 (08:07→23:57)
[2018-06-22] MEDS: LANSOPRAZOLE 30 MG PO SCH ×2 (08:07→19:37)
[2018-06-22] MEDS: MULTIVITAMIN PO SCH (08:08)
[2018-06-22] MEDS: VERAPAMIL 80MG TABLET PO SCH ×3 (08:09→19:39)
[2018-06-22] MEDS: POTASSIUM CHLORIDE 20 MEQ PO SCH (08:09)
[2018-06-22] MEDS: ENOXAPARIN 40 MG/0.4 ML SUBCUT SCH (08:09)
[2018-06-22] MEDS: LISINOPRIL 5 MG PO SCH (08:09)
[2018-06-22] MEDS: LEVOTHYROXINE 125 MCG PO SCH (08:09)
[2018-06-22] MEDS: ONDANSETRON 4 MG PO PRN ×2 (10:05→20:25)
[2018-06-22] MEDS: SERTRALINE 100 MG PO SCH (19:37)
[2018-06-22] MEDS: Mirtazapine 15 MG Tab PO SCH (19:40)
[2018-06-22] MEDS: POLYETHYLENE GLYCOL PO SCH (19:40)
[2018-06-22] MEDS ORDERED: Simethicone 80 MG Tab.Chew ONE (20:21)
[2018-06-22] MEDS ORDERED: LORazepam 0.5 MG Tab ONE (23:52)
[2018-06-23] MEDS: LANSOPRAZOLE 30 MG PO SCH ×2 (07:38→20:42)
[2018-06-23] MEDS: LISINOPRIL 5 MG PO SCH (07:38)
[2018-06-23] MEDS: LEVOTHYROXINE 125 MCG PO SCH (07:38)
[2018-06-23] MEDS: MULTIVITAMIN PO SCH (07:40)
[2018-06-23] MEDS: VERAPAMIL 80MG TABLET PO SCH ×3 (07:40→20:43)
[2018-06-23] MEDS: POTASSIUM CHLORIDE 20 MEQ PO SCH (07:40)
[2018-06-23] MEDS: METHADONE 10 MG PO SCH ×2 (07:42→16:57)
[2018-06-23] MEDS: ENOXAPARIN 40 MG/0.4 ML SUBCUT SCH (07:44)
[2018-06-23] MEDS ORDERED: Aspirin 81 MG Tab.Chew PO SCH (08:00)
[2018-06-23] MEDS: TUMS PO PRN ×2 (08:09→15:51)
[2018-06-23] MEDS: Aspirin 325 MG Tab.EC PO SCH (08:52)
[2018-06-23] MEDS: [UNRECOGNIZED DRUG - OTHER] PO PRN ×3 (09:38→18:53)
[2018-06-23] MEDS: POLYETHYLENE GLYCOL PO SCH (20:43)
[2018-06-23] MEDS: SERTRALINE 100 MG PO SCH (20:43)
[2018-06-23] MEDS: Mirtazapine 15 MG Tab PO SCH (20:47)
[2018-06-24] MEDS: METHADONE 10 MG PO SCH ×4 (00:33→20:00)
[2018-06-24] MEDS: ONDANSETRON 4 MG PO PRN ×2 (00:33→12:44)
[2018-06-24] MEDS: LANSOPRAZOLE 30 MG PO SCH ×2 (08:25→19:16)
[2018-06-24] MEDS: LEVOTHYROXINE 125 MCG PO SCH (08:25)
[2018-06-24] MEDS: [UNRECOGNIZED DRUG - OTHER] PO PRN ×3 (08:25→19:15)
[2018-06-24] MEDS: TUMS PO PRN ×3 (08:26→19:15)
[2018-06-24] MEDS: ENOXAPARIN 40 MG/0.4 ML SUBCUT SCH (08:27)
[2018-06-24] MEDS: Aspirin 325 MG Tab.EC PO SCH ×2 (08:27→09:46)
[2018-06-24] MEDS: LISINOPRIL 5 MG PO SCH (08:28)
[2018-06-24] MEDS: MULTIVITAMIN PO SCH (08:28)
[2018-06-24] MEDS: POTASSIUM CHLORIDE 20 MEQ PO SCH (08:29)
[2018-06-24] MEDS: VERAPAMIL 80MG TABLET PO SCH ×3 (08:30→19:17)
[2018-06-24] MEDS: SERTRALINE 100 MG PO SCH (19:16)
[2018-06-24] MEDS: MIRTAZAPINE 7.5 MG PO SCH (19:17)
[2018-06-24] MEDS: POLYETHYLENE GLYCOL PO SCH (19:18)
[2018-06-25] MEDS: METHADONE 10 MG PO SCH ×3 (01:48→16:02)
[2018-06-25] MEDS: LEVOTHYROXINE 125 MCG PO SCH (09:00)
[2018-06-25] MEDS: [UNRECOGNIZED DRUG - OTHER] PO PRN ×3 (09:00→17:30)
[2018-06-25] MEDS: TUMS PO PRN ×3 (09:00→17:30)
[2018-06-25] MEDS: LANSOPRAZOLE 30 MG PO SCH ×2 (09:00→19:52)
[2018-06-25] MEDS: Aspirin 325 MG Tab.EC PO SCH (09:09)
[2018-06-25] MEDS: ENOXAPARIN 40 MG/0.4 ML SUBCUT SCH (09:09)
[2018-06-25] MEDS: LISINOPRIL 5 MG PO SCH (09:09)
[2018-06-25] MEDS: MULTIVITAMIN PO SCH (09:17)
[2018-06-25] MEDS: POTASSIUM CHLORIDE 20 MEQ PO SCH (09:18)
[2018-06-25] MEDS: VERAPAMIL 80MG TABLET PO SCH ×3 (09:18→20:01)
[2018-06-25] MEDS: SIMETHICONE 125 MG PO PRN (13:53)
[2018-06-25] MEDS ORDERED: ALPRAZolam 0.25 MG Tab PO PRN (18:11)
[2018-06-25] MEDS ORDERED: ALPRAZOLAM 1 MG PO PRN (18:25)
[2018-06-25] MEDS: SERTRALINE 100 MG PO SCH (19:53)
[2018-06-25] MEDS: MIRTAZAPINE 7.5 MG PO SCH (19:54)
[2018-06-25] MEDS: POLYETHYLENE GLYCOL PO SCH (20:00)
[2018-06-26] MEDS: METHADONE 10 MG PO SCH ×3 (00:07→15:57)
[2018-06-26] MEDS: LEVOTHYROXINE 125 MCG PO SCH (07:45)
[2018-06-26] MEDS: Aspirin 325 MG Tab.EC PO SCH (07:46)
[2018-06-26] MEDS: LANSOPRAZOLE 30 MG PO SCH ×2 (07:47→19:40)
[2018-06-26] MEDS: ENOXAPARIN 40 MG/0.4 ML SUBCUT SCH (07:47)
[2018-06-26] MEDS: LISINOPRIL 5 MG PO SCH (07:48)
[2018-06-26] MEDS: MULTIVITAMIN PO SCH (07:49)
[2018-06-26] MEDS: POTASSIUM CHLORIDE 20 MEQ PO SCH (07:50)
[2018-06-26] MEDS: VERAPAMIL 80MG TABLET PO SCH ×3 (07:51→20:50)
[2018-06-26] MEDS: TRAMADOL 50MG TABLETS PO PRN ×2 (12:07→19:51)
[2018-06-26] MEDS: ONDANSETRON 4 MG PO PRN ×2 (15:58→16:00)
[2018-06-26] MEDS: [UNRECOGNIZED DRUG - OTHER] PO PRN ×2 (15:58→21:19)
[2018-06-26] MEDS: TUMS PO PRN ×3 (15:59→21:19)
[2018-06-26] MEDS: MIRTAZAPINE 7.5 MG PO SCH (20:49)
[2018-06-26] MEDS: SERTRALINE 100 MG PO SCH (20:49)
[2018-06-26] MEDS: POLYETHYLENE GLYCOL PO SCH (20:52)
[2018-06-27] MEDS: TRAMADOL 50MG TABLETS PO PRN ×3 (03:23→20:48)
[2018-06-27] MEDS: SIMETHICONE 125 MG PO PRN ×4 (03:28→17:29)
[2018-06-27] MEDS: TUMS PO PRN ×5 (03:28→19:36)
[2018-06-27] MEDS: LEVOTHYROXINE 125 MCG PO SCH (07:58)
[2018-06-27] MEDS: LANSOPRAZOLE 30 MG PO SCH ×2 (07:58→19:36)
[2018-06-27] MEDS: [UNRECOGNIZED DRUG - OTHER] PO PRN ×3 (07:59→17:27)
[2018-06-27] MEDS: ENOXAPARIN 40 MG/0.4 ML SUBCUT SCH (08:03)
[2018-06-27] MEDS: Aspirin 325 MG Tab.EC PO SCH (08:03)
[2018-06-27] MEDS: METHADONE 10 MG PO SCH ×4 (08:04→23:39)
[2018-06-27] MEDS: LISINOPRIL 5 MG PO SCH (08:04)
[2018-06-27] MEDS: MULTIVITAMIN PO SCH (08:04)
[2018-06-27] MEDS: VERAPAMIL 80MG TABLET PO SCH ×3 (08:05→20:47)
[2018-06-27] MEDS: POTASSIUM CHLORIDE 20 MEQ PO SCH (08:05)
[2018-06-27] MEDS: SERTRALINE 100 MG PO SCH (20:46)
[2018-06-27] MEDS: MIRTAZAPINE 7.5 MG PO SCH (20:47)
[2018-06-27] MEDS: POLYETHYLENE GLYCOL PO SCH (20:49)
[2018-06-28] MEDS: SIMETHICONE 125 MG PO PRN ×4 (00:07→17:25)
[2018-06-28] MEDS: [UNRECOGNIZED DRUG - OTHER] PO PRN ×4 (00:07→17:26)
[2018-06-28] MEDS: Lactulose Soln 10 GM/15 ML 15 ML UD Cup PO PRN (02:04)
[2018-06-28] MEDS: LEVOTHYROXINE 125 MCG PO SCH (06:26)
[2018-06-28] MEDS: TRAMADOL 50MG TABLETS PO PRN (06:27)
[2018-06-28] MEDS: ONDANSETRON 4 MG PO PRN ×2 (06:27→17:25)
[2018-06-28] MEDS: TUMS PO PRN ×4 (08:02→20:24)
[2018-06-28] MEDS: ENOXAPARIN 40 MG/0.4 ML SUBCUT SCH (08:05)
[2018-06-28] MEDS: LANSOPRAZOLE 30 MG PO SCH ×2 (08:05→20:23)
[2018-06-28] MEDS: METHADONE 10 MG PO SCH ×2 (08:06→15:51)
[2018-06-28] MEDS: Aspirin 325 MG Tab.EC PO SCH (08:06)
[2018-06-28] MEDS: MULTIVITAMIN PO SCH (08:06)
[2018-06-28] MEDS: POTASSIUM CHLORIDE 20 MEQ PO SCH (08:07)
[2018-06-28] MEDS: VERAPAMIL 80MG TABLET PO SCH ×3 (08:08→20:27)
[2018-06-28] MEDS: LISINOPRIL 5 MG PO SCH (08:14)
[2018-06-28] MEDS: SERTRALINE 100 MG PO SCH (20:24)
[2018-06-28] MEDS: POLYETHYLENE GLYCOL PO SCH (20:25)
[2018-06-28] MEDS: MIRTAZAPINE 7.5 MG PO SCH (20:27)
[2018-06-29] MEDS: METHADONE 10 MG PO SCH ×3 (00:26→15:08)
[2018-06-29] MEDS: TUMS PO PRN ×3 (09:24→17:07)
[2018-06-29] MEDS: ONDANSETRON 4 MG PO PRN (09:24)
[2018-06-29] MEDS: LANSOPRAZOLE 30 MG PO SCH ×2 (09:24→19:54)
[2018-06-29] MEDS: VERAPAMIL 80MG TABLET PO SCH ×3 (09:25→19:57)
[2018-06-29] MEDS: POTASSIUM CHLORIDE 20 MEQ PO SCH (09:25)
[2018-06-29] MEDS: Aspirin 325 MG Tab.EC PO SCH (09:25)
[2018-06-29] MEDS: SIMETHICONE 125 MG PO PRN (09:26)
[2018-06-29] MEDS: MULTIVITAMIN PO SCH (09:27)
[2018-06-29] MEDS: ENOXAPARIN 40 MG/0.4 ML SUBCUT SCH (09:27)
[2018-06-29] MEDS: LISINOPRIL 5 MG PO SCH (09:28)
[2018-06-29] MEDS: LEVOTHYROXINE 125 MCG PO SCH (09:28)
[2018-06-29] MEDS: [UNRECOGNIZED DRUG - OTHER] PO PRN ×3 (09:28→17:07)
[2018-06-29] MEDS: Ibuprofen 600 MG Tab PO PRN (18:13)
[2018-06-29] MEDS: MIRTAZAPINE 7.5 MG PO SCH (19:56)
[2018-06-29] MEDS: SERTRALINE 100 MG PO SCH (19:57)
[2018-06-29] MEDS: POLYETHYLENE GLYCOL PO SCH (19:57)
[2018-06-29] MEDS: Acetaminophen 325 MG Tab PO PRN (20:01)
[2018-06-30] MEDS: METHADONE 10 MG PO SCH ×4 (00:15→23:27)
[2018-06-30] MEDS: Ibuprofen 600 MG Tab PO PRN ×2 (00:17→08:17)
[2018-06-30] MEDS: ONDANSETRON 4 MG PO PRN ×2 (00:23→08:22)
[2018-06-30] MEDS: TUMS PO PRN ×3 (00:23→23:29)
[2018-06-30] MEDS: SIMETHICONE 125 MG PO PRN (00:24)
[2018-06-30] MEDS: [UNRECOGNIZED DRUG - OTHER] PO PRN ×2 (00:26→08:11)
[2018-06-30] MEDS: Acetaminophen 325 MG Tab PO PRN (05:00)
[2018-06-30] MEDS: LEVOTHYROXINE 125 MCG PO SCH (08:10)
[2018-06-30] MEDS: LANSOPRAZOLE 30 MG PO SCH ×2 (08:10→23:25)
[2018-06-30] MEDS: Aspirin 325 MG Tab.EC PO SCH (08:10)
[2018-06-30] MEDS: VERAPAMIL 80MG TABLET PO SCH ×3 (08:10→23:26)
[2018-06-30] MEDS: POTASSIUM CHLORIDE 20 MEQ PO SCH (08:11)
[2018-06-30] MEDS: MULTIVITAMIN PO SCH (08:11)
[2018-06-30] MEDS: ENOXAPARIN 40 MG/0.4 ML SUBCUT SCH (08:13)
[2018-06-30] MEDS: LISINOPRIL 5 MG PO SCH (08:13)
[2018-06-30] MEDS: MIRTAZAPINE 7.5 MG PO SCH (23:25)
[2018-06-30] MEDS: SERTRALINE 100 MG PO SCH (23:25)
[2018-06-30] MEDS: POLYETHYLENE GLYCOL PO SCH (23:33)
[2018-07-01] MEDS: SIMETHICONE 125 MG PO PRN (02:06)
[2018-07-01] MEDS: LANSOPRAZOLE 30 MG PO SCH ×2 (08:15→20:26)
[2018-07-01] MEDS: [UNRECOGNIZED DRUG - OTHER] PO PRN ×3 (08:15→17:17)
[2018-07-01] MEDS: LEVOTHYROXINE 125 MCG PO SCH (08:16)
[2018-07-01] MEDS: TUMS PO PRN ×3 (08:16→17:17)
[2018-07-01] MEDS: TYLENOL 500 MG PO PRN ×2 (08:18→12:32)
[2018-07-01] MEDS: ENOXAPARIN 40 MG/0.4 ML SUBCUT SCH (08:19)
[2018-07-01] MEDS: VERAPAMIL 80MG TABLET PO SCH ×3 (08:21→20:25)
[2018-07-01] MEDS: POTASSIUM CHLORIDE 20 MEQ PO SCH (08:22)
[2018-07-01] MEDS: LISINOPRIL 5 MG PO SCH (08:22)
[2018-07-01] MEDS: MULTIVITAMIN PO SCH (08:23)
[2018-07-01] MEDS: Aspirin 325 MG Tab.EC PO SCH (08:24)
[2018-07-01] MEDS: METHADONE 10 MG PO SCH ×2 (08:24→16:44)
[2018-07-01] MEDS: ONDANSETRON 4 MG PO PRN (10:00)
[2018-07-01] MEDS: IBUPROFEN 200 MG PO PRN ×2 (10:01→14:30)
[2018-07-01] MEDS: Calcitonin (Salmon) Nasal Spray 3.7 ML Bottle NAS SCH (18:15)
[2018-07-01] MEDS: Acetaminophen/HYDROcodone 325-5 MG Tab PO PRN (20:22)
[2018-07-01] MEDS: MIRTAZAPINE 7.5 MG PO SCH (20:25)
[2018-07-01] MEDS: SERTRALINE 100 MG PO SCH (20:25)
[2018-07-01] MEDS: POLYETHYLENE GLYCOL PO SCH (20:26)
[2018-07-02] MEDS: METHADONE 10 MG PO SCH ×2 (00:03→09:19)
[2018-07-02] MEDS: Acetaminophen/HYDROcodone 325-5 MG Tab PO PRN ×4 (00:04→14:10)
[2018-07-02] MEDS: ONDANSETRON 4 MG PO PRN ×2 (00:05→10:43)
[2018-07-02] MEDS: LEVOTHYROXINE 125 MCG PO SCH (06:18)
[2018-07-02] MEDS: Aspirin 325 MG Tab.EC PO SCH (09:17)
[2018-07-02] MEDS: LISINOPRIL 5 MG PO SCH (09:18)
[2018-07-02] MEDS: Calcitonin (Salmon) Nasal Spray 3.7 ML Bottle NAS SCH (09:18)
[2018-07-02] MEDS: LANSOPRAZOLE 30 MG PO SCH (09:18)
[2018-07-02] MEDS: MULTIVITAMIN PO SCH (09:19)
[2018-07-02] MEDS: VERAPAMIL 80MG TABLET PO SCH ×2 (09:19→14:10)
[2018-07-02] MEDS: POTASSIUM CHLORIDE 20 MEQ PO SCH (09:19)
[2018-07-02] MEDS: TUMS PO PRN ×2 (09:28→12:00)
[2018-07-02] MEDS: [UNRECOGNIZED DRUG - OTHER] PO PRN ×2 (09:28→12:00)
[2018-07-02 09:38] VITALS: BP 143/65
--- NOTE | 2018-07-03 10:13 | PCM.DCSUM1 ---
Discharge Summary - Discharge Data Discharge Date: 07/02/18 Discharge Disposition: Home, Self-Care 01 Condition: Good - Discharge Diagnosis/Problem(s) (1) Subcapital fracture of neck of right femur SNOMED Code(s): 973981255 ICD Code: S72.011A - UNSP INTRACAPSULAR FRACTURE OF RIGHT FEMUR, INIT FOR CLOS FX Status: Acute Priority: High Qualifiers: Encounter type: initial encounter Fracture type: closed Qualified Code(s) : S72.011A - Unspecified intracapsular fracture of right femur, initial encounter for closed fracture (2) Weakness SNOMED Code(s): 44107306 ICD Code: R53.1 - WEAKNESS Status: Acute Priority: High - Patient Summary/Data Consults: Consultations 07/01/18 08:36 Consult to Physical Therapy [PT Evaluation and Treatment] [CONS] Routine Please Evaluate and Treat. PT Reason for Consult: Post op Ortho Surgery Special Instructions: Evalution for discharge home This query below is only for informational purposes and is not editable. Admission Diagnosis/Problem: Weakness 07/01/18 08:37 Consult to Occupational Therapy [OT Evaluation and Treatment] [CONS] Routine Please Evaluate and Treat. OT Reason for Consult: Discharge Planning Special Instructions: Evaluation for discharge This query below is only for informational purposes and is not editable. Admission Diagnosis/Problem: Weakness - Patient Instructions Activity: As Tolerated - Discharge Plan Home Medications: Home Meds ALPRAZolam [Alprazolam] 1 mg PO QID PRN 03/03/15 [History] Lansoprazole 30 mg PO BID 03/03/15 [History] Levothyroxine [Sythroid] 125 mcg PO DAILY 03/03/15 [History] Lisinopril 5 mg PO DAILY 03/03/15 [History] Methadone HCl [Methadone] 30 mg PO TID 03/03/15 [History] Ondansetron 8 mg PO TID PRN 03/03/15 [History] Polyethylene Glycol 3350 [MiraLAX] 17 gm PO QPM 03/03/15 [History] Verapamil HCl 80 mg PO TID 03/03/15 [History] Hyoscyamine [Hyomax-SL] 0.125 mg SL Q4H PRN 04/09/17 [History] Ipratropium [Atrovent HFA] 12.9 gm IH Q6H PRN 04/09/17 [History] Meclizine [Antivert] 25 mg PO Q6H PRN 04/09/17 [History] Potassium Chloride 20 meq PO DAILY 04/09/17 [History] Sertraline [Zoloft] 150 mg PO BEDTIME 04/09/17 [History] Fluconazole [Diflucan] 150 mg PO DAILY 05/06/18 [History] Betamethasone/Clotrimazole [Lotrisone] 15 gm TOP BID PRN 05/12/18 [History] Calcium Carb/Vit D3/Minerals [Calcium 600+D Plus Minerals] 400 mg PO DAILY 05/12 [History] Diphenhyd/Lidocaine/MagAl/Jeny [First-Mouthwash BLM Susp] 237 ml MM TID PRN [History] Enoxaparin [Lovenox] 40 mg SUBCUT DAILY 05/12/18 [History] Ergocalciferol (Vitamin D2) [Drisdol] 50,000 unit PO WEEKLY 05/12/18 [History] Naloxone HCl [Narcan] 4 mg NS ASDIRECTED PRN 05/12/18 [History] Patient Handouts: Ibuprofen tablets and capsules, Acetaminophen tablets or caplets - Discharge Summary/Plan Comment DC Time >30 min.: Yes Discharge Summary/Plan Comment: Patient counseled on discharge instructions and f/u with Orthopedics. Discussed medications as patient requesting refills on all her medications. Counseled on no narcotics will be refilled for her as this must be done with her PCP. Patient states she wants to establish care with Dr. Botello. Her recent PCP is Dr. Downs. We will refill meds to get her to her next appointment except narcotics which she states she has enough. F/u as instructed and as needed. - Patient Data Vitals - Most Recent: Last Vital Signs Temp 36.4 C 07/02/18 09:37 Pulse 83 07/02/18 09:37 Resp 18 07/02/18 09:37 BP 143/65 H 07/02/18 09:37 Pulse Ox 96 07/02/18 09:37 Weight - Most Recent: 79.651 kg Med Orders - Current: Current Medications Discontinued Medications Acetaminophen (Tylenol Extra Strength) Confirm Administered Dose 1,000 mg .ROUTE .STK-MED ONE Stop: 06/10/18 11:52 Last Admin: 06/10/18 12:00 Dose: 1,000 mg Acetaminophen (Tylenol Extra Strength) 1,000 mg PO ONETIME ONE Stop: 06/10/18 13:23 Acetaminophen (Tylenol Arthritis Pain) Confirm Administered Dose 650 mg .ROUTE .STK-MED ONE Stop: 06/12/18 19:56 Last Admin: 06/12/18 20:55 Dose: 650 mg Acetaminophen (Tylenol) 650 mg PO Q4H PRN PRN Reason: MILD PAIN Last Admin: 06/30/18 05:00 Dose: 500 mg Hydrocodone Bitart/Acetaminophen ([place] 325-5 Mg) 1 tab PO Q4H PRN PRN Reason: Pain/Fever Last Admin: 07/02/18 14:10 Dose: 1 tab Alprazolam (Xanax) 1 mg PO QID PRN PRN Reason: Anxiety Last Admin: 06/11/18 03:31 Dose: 1 mg Alprazolam (Xanax) Confirm Administered Dose 1 mg .ROUTE .STK-MED ONE Stop: 06/13/18 08:24 Last Admin: 06/13/18 08:33 Dose: Not Given Alprazolam (Xanax) 1 mg PO TID PRN PRN Reason: Anxiety Aspirin (Aspirin) 81 mg PO DAILY [facility] Aspirin (Ecotrin) 325 mg PO DAILY [facility] Last Admin: 07/02/18 09:17 Dose: 325 mg Calcitonin [place] (Miacalcin Nasal [place]) 0 ml LESLY DAILY [facility] Last Admin: 07/02/18 09:18 Dose: 1 spray Calcium Carbonate (Caltrate 600+D 1500 Mg-400 Units) Confirm Administered Dose 1 tab .ROUTE .STK-MED ONE Stop: 06/10/18 07:48 Last Admin: 06/10/18 08:35 Dose: Not Given Calcium Carbonate (Caltrate 600+D 1500 Mg-400 Units) Confirm Administered Dose 1 tab .ROUTE .STK-MED ONE Stop: 06/11/18 09:45 Last Admin: 06/11/18 09:50 Dose: 1 tab Calcium Carbonate/Glycine (Tums) Confirm Administered Dose 1,000 mg .ROUTE .STK- MED ONE Stop: 06/08/18 19:20 Last Admin: 06/09/18 18:48 Dose: 1,000 mg Calcium Carbonate/Glycine (Tums) Confirm Administered Dose 500 mg .ROUTE .STK- MED ONE Stop: 06/09/18 07:53 Last Admin: 06/09/18 08:24 Dose: Not Given Calcium Carbonate/Glycine (Calcium Carbonate) Confirm Administered Dose 600 mg .ROUTE .STK-MED ONE Stop: 06/09/18 10:05 Last Admin: 06/09/18 10:09 Dose: 600 mg Calcium Carbonate/Glycine (Tums) Confirm Administered Dose 500 mg .ROUTE .STK- MED ONE Stop: 06/09/18 18:47 Last Admin: 06/09/18 19:46 Dose: Not Given Calcium Carbonate/Glycine (Tums) 1,000 mg PO Q2HR PRN PRN Reason: Indigestion Last Admin: 06/12/18 09:40 Dose: 1,000 mg Calcium Carbonate/Glycine (Tums) Confirm Administered Dose 1,000 mg .ROUTE .STK- MED ONE Stop: 06/10/18 07:47 Last Admin: 06/10/18 08:35 Dose: Not Given Docusate Sodium (Colace) 100 mg PO BID [facility] Last Admin: 06/11/18 08:53 Dose: 100 mg Docusate Sodium (Colace) Confirm Administered Dose 100 mg .ROUTE .STK-MED ONE Stop: 06/09/18 01:52 Last Admin: 06/09/18 02:02 Dose: Not Given Docusate Sodium (Colace) Confirm Administered Dose 100 mg .ROUTE .STK-MED ONE Stop: 06/10/18 07:47 Last Admin: 06/10/18 08:34 Dose: Not Given Enoxaparin Sodium (Lovenox) 40 mg SUBCUT DAILY [facility] Last Admin: 06/11/18 08:50 Dose: 40 mg Ibuprofen (Motrin) 600 mg PO Q4H PRN PRN Reason: MILD PAIN Last Admin: 06/30/18 08:17 Dose: 600 mg Ipratropium [place] (Atrovent) Confirm Administered Dose 0.5 mg .ROUTE .STK-MED ONE Stop: 06/09/18 23:04 Last Admin: 06/09/18 23:21 Dose: Not Given Ipratropium [place] (Atrovent) 0.5 mg NEB Q6H [facility] Last Admin: 06/11/18 15:19 Dose: Not Given Lactulose (Chronulac) Confirm Administered Dose 10 gm .ROUTE .STK-MED ONE Stop: 06/08/18 20:28 Last Admin: 06/08/18 20:35 Dose: 10 gm Lactulose (Chronulac) 10 gm PO QID PRN PRN Reason: Constipation Last Admin: 06/28/18 02:04 Dose: 10 gm Lactulose (Chronulac) Confirm Administered Dose 10 gm .ROUTE .STK-MED ONE Stop: 06/13/18 00:31 Last Admin: 06/13/18 02:12 Dose: 10 gm Levothyroxine Sodium (Levothyroxine) Confirm Administered Dose 25 mcg .ROUTE .STK-MED ONE Stop: 06/09/18 10:05 Last Admin: 06/09/18 10:11 Dose: 25 mcg Levothyroxine Sodium (Synthroid) Confirm Administered Dose 100 mcg .ROUTE .STK- MED ONE Stop: 06/09/18 10:05 Last Admin: 06/09/18 10:10 Dose: 100 mcg Levothyroxine Sodium (Synthroid) Confirm Administered Dose 50 mcg [facility]TE [facility] ONE Stop: 06/10/18 07:48 Last Admin: 06/10/18 08:35 Dose: Not Given Levothyroxine Sodium (Synthroid) Confirm Administered Dose 100 mcg .[facility]TE [facility] ONE Stop: 06/10/18 07:49 Last Admin: 06/10/18 08:35 Dose: Not Given Levothyroxine Sodium (Synthroid) Confirm Administered Dose 50 mcg .ROUTE .STK- MED ONE Stop: 06/11/18 08:49 Last Admin: 06/11/18 08:54 Dose: Not Given Levothyroxine Sodium (Synthroid) Confirm Administered Dose 100 mcg .ROUTE .STK- MED ONE Stop: 06/11/18 08:49 Last Admin: 06/11/18 08:54 Dose: Not Given Levothyroxine Sodium (Levothyroxine) 25 mcg PO DAILY [facility] Levothyroxine Sodium (Synthroid) 100 mcg PO DAILY [facility] Lisinopril (Prinivil) 5 mg PO DAILY [facility] Last Admin: 06/11/18 08:52 Dose: 5 mg Lorazepam (Ativan) 0.5 mg PO Q4H PRN PRN Reason: Anxiety Last Admin: 06/22/18 03:17 Dose: 0.5 mg Lorazepam (Ativan) Confirm Administered Dose 0.5 mg .ROUTE .K-MED ONE Stop: 06/22/18 23:53 Last Admin: 06/23/18 00:20 Dose: 0.5 mg Meclizine HCl (Antivert) 25 mg PO Q6H PRN PRN Reason: Dizziness Meperidine HCl (Demerol) Confirm Administered Dose 50 mg .ROUTE .STK-MED ONE Stop: 06/18/18 23:43 Last Admin: 06/19/18 00:34 Dose: Not Given Methadone HCl (Methadone) 30 mg PO BID PRN PRN Reason: Pain Last Admin: 06/09/18 08:50 Dose: 30 mg Methadone HCl (Methadone) 30 mg PO TID [facility] Last Admin: 06/11/18 08:51 Dose: 30 mg Mirtazapine (Remeron) 7.5 mg PO BEDTIME [facility] Last Admin: 06/23/18 20:47 Dose: 7.5 mg Non-Formulary Medication (Calcium Carb/Vit D3/Minerals [Calcium 600+D Plus Minerals]) 400 mg PO DAILY [facility] Last Admin: 06/11/18 08:55 Dose: Not Given Non-Formulary Medication (Ergocalciferol (Vitamin D2) [Drisdol]) 50,000 unit PO .WEEKLY [facility] Non-Formulary Medication (Hyoscyamine [Hyomax-Sl]) 0.125 mg SL Q4H PRN PRN Reason: Cramping Non-Formulary Medication (Lansoprazole [Lansoprazole]) 30 mg PO BID [facility] Last Admin: 07/02/18 09:18 Dose: 30 mg Non-Formulary Medication (Levothyroxine [Synthroid]) 125 mcg PO DAILY [facility] Last Admin: 06/11/18 08:53 Dose: 125 mcg Methadone 10mg (Tablets) 3 each PO TID [facility] Last Admin: 06/17/18 07:40 Dose: 3 each Enoxaparin 40mg/0. (4ml) 1 each SUBCUT DAILY [facility] Last Admin: 07/01/18 08:19 Dose: Not Given Sertraline 100mg (Tablets) 1.5 each PO BEDTIME [facility] Last Admin: 07/01/18 20:25 Dose: 1.5 each Levothyroxine 125mcg (Tablet) 1 each PO ACBREAKFAST [facility] Last Admin: 07/02/18 06:18 Dose: 1 each Verapamil 80mg (Tablet) 1 each PO TID [facility] Last Admin: 07/02/18 14:10 Dose: 1 each Potassium Cholor[place] (20meq Er Tablets) 1 each PO DAILY [facility] Last Admin: 07/02/18 09:19 Dose: 1 each Ondansetron 4mg (Tablets) 1 - 2 each PO Q4H PRN PRN Reason: NAUSEA Last Admin: 06/12/18 06:06 Dose: 8 each Lisinopril 5mg (Tablets) 1 each PO DAILY [facility] Last Admin: 07/02/18 09:18 Dose: 1 each Multivitamin Tablets 1 each PO DAILY [facility] Last Admin: 07/02/18 09:19 Dose: 1 each Tums 750mg Tablets 1 - 2 each PO Q2H PRN PRN Reason: HEART BURN Tums 750mg Tablets 1 each PO Q2H PRN PRN Reason: HEART BURN Last Admin: 07/02/18 12:00 Dose: 1 each Meclizine 25mg (Tablets) 1 each PO QID PRN PRN Reason: DIZZINESS Last Admin: 06/20/18 13:40 Dose: 1 each Ondansetron 4mg (Tablets) 1 each PO Q4H PRN PRN Reason: NAUSEA Last Admin: 07/02/18 10:43 Dose: 2 each Methadone 10mg (Tablets) 2 each PO Q8H [facility] Last Admin: 06/17/18 10:54 Dose: Not Given Methadone 10mg (Tablets) 2 each PO Q8H [facility] Last Admin: 07/02/18 09:19 Dose: 2 each Non-Formulary Medication (Betamethasone/Clotrimazole [Lotrisone]) 15 gm TOP BID PRN PRN Reason: Rash Last Admin: 06/20/18 23:33 Dose: 15 gm Magic Mouth Wash 10 each PO QID PRN PRN Reason: MOUTH SORES Magic Mouth Wash 10 each PO TID PRN PRN Reason: MOUTH SORES Polyethylene Glycol 3350 Powder Own Med 0 gm PO QPM [facility] Last Admin: 07/01/18 20:26 Dose: 17 gm Beano Supplement 1 each PO ASDIRECTED PRN PRN Reason: MEALS Last Admin: 07/02/18 12:00 Dose: 1 each Simethicone 125mg (Tablets) 1 each PO ASDIRECTED PRN PRN Reason: BLOATING Last Admin: 07/01/18 02:06 Dose: 2 each Mirtazapine 7.5mg (Tablet) 1 each PO BEDTIME [facility] Last Admin: 07/01/18 20:25 Dose: 1 each Tramadol 50mg (Tablets) 1 each PO TID PRN PRN Reason: MODERATE PAIN Last Admin: 06/28/18 06:27 Dose: 1 each Ibuprofen 200mg (Tablets) 3 each PO Q4H PRN PRN Reason: MILD PAIN Last Admin: 07/01/18 14:30 Dose: 3 each Tylenol 500mg (Gelcaps) 1 each PO Q4H PRN PRN Reason: MILD PAIN Last Admin: 07/01/18 12:32 Dose: 1 each Ondansetron HCl (Zofran Odt) 8 mg PO TID PRN PRN Reason: Nausea Last Admin: 06/11/18 11:06 Dose: 8 mg Pantoprazole Sodium (Protonix) 40 mg PO BEDTIME [facility] Stop: 06/08/18 20:01 Last Admin: 06/08/18 22:18 Dose: Not Given Alprazolam 1 Mg Tab (*Pt Own Med*) 0 each PO TID PRN PRN Reason: Anxiety Last Admin: 06/26/18 00:08 Dose: 1 each Potassium Chloride (Klor-Con M20) 20 meq PO DAILY [facility] Last Admin: 06/11/18 08:53 Dose: 20 meq Sertraline HCl (Zoloft) 150 mg PO BEDTIME [facility] Last Admin: 06/10/18 20:20 Dose: 150 mg Simethicone (Simethicone) Confirm Administered Dose 80 mg .ROUTE .STK-MED ONE Stop: 06/21/18 19:33 Last Admin: 06/21/18 19:44 Dose: Not Given Simethicone (Simethicone) 80 mg PO ONETIME ONE Stop: 06/21/18 19:43 Last Admin: 06/21/18 19:45 Dose: 80 mg Simethicone (Simethicone) Confirm Administered Dose 80 mg .ROUTE .STK-MED ONE Stop: 06/22/18 20:22 Last Admin: 06/22/18 20:28 Dose: 80 mg Verapamil HCl (Calan) 80 mg PO TID [facility] Last Admin: 06/11/18 08:53 Dose: 80 mg
== END 2018-07-02 15:30 | disposition home or self-care (01) | DRG 560 ==
LOC: LB.MS 16:16
PROVIDERS: ADMIT Family Medicine; ATTEND Family Medicine
DX: S72.011D Unspecified intracapsular fracture of right femur, subsequent encounter for closed fracture with routine healing (principal); B37.0 Candidal stomatitis; R53.1 Weakness; R76.11 Nonspecific reaction to tuberculin skin test without active tuberculosis; Z91.128 Patient's intentional underdosing of medication regimen for other reason; J44.9 Chronic obstructive pulmonary disease, unspecified; F32.9 Major depressive disorder, single episode, unspecified; M79.7 Fibromyalgia; E03.9 Hypothyroidism, unspecified; Z85.828 Personal history of other malignant neoplasm of skin; Z88.1 Allergy status to other antibiotic agents; Z88.5 Allergy status to narcotic agent; Z88.0 Allergy status to penicillin; Z88.8 Allergy status to other drugs, medicaments and biological substances
CPT/HCPCS: 36415; 80053; 83690; 85025; A9270-GY; J1650

== ENCOUNTER 2019-03-03 02:03 | Inpatient (IN) | payer MEDICARE ==
[2019-03-03] MEDS ORDERED: Ondansetron 4 MG Tab.DIS PO ONE (02:38)
[2019-03-03] MEDS ORDERED: Sodium Chloride 0.9% 10 ML Syringe FLUSH PRN (03:08)
[2019-03-03] MEDS ORDERED: Sodium Chloride 0.9% 500 ML IV SCH (03:15)
[2019-03-03] MEDS: HYDROmorphone 2 MG/ML Syringe IV PRN ×2 (03:18→04:10)
--- NOTE | 2019-03-03 03:25 | EDM.PDOC ---
ED HPI GENERAL MEDICAL PROBLEM - General Chief Complaint: Abdominal Pain Stated Complaint: ABDOMINAL PAIN Time Seen by Provider: 03/03/19 02:10 Source of Information: Reports: Patient History Limitations: Reports: No Limitations - History of Present Illness INITIAL COMMENTS - FREE TEXT/NARRATIVE: According to patient she claims that she has been having severe abdominal pain which started around 7 PM tonight. Pain is in the periumbilical region sharp with radiation irena the mid back. Has been feeling nauseous since 7 PM, but has not had any vomiting. No chest pain, shortness or breath or cough. No fever or chills. Does c/o distension of the abdomen.Pt claims that she took 800mg of ibuprofen for pain to night and has not helped. Pt has had pancreatitis in the past. Pt claims she had diarrhea yesterday and she has been on doxycycline. Onset Date: 03/02/19 Onset Time: 19:00 Duration: Getting Worse Location: Reports: Abdomen Severity: Severe Improves with: Reports: None Worsens with: Reports: None Associated Symptoms: Reports: Nausea/Vomiting. 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 ABDOMIN Pain Score (Numeric/FACES): 9 - Related Data Allergies Allergy/AdvReac Type Severity Reaction Status Date / Time albuterol Allergy Cannot Verified 03/03/19 03:18 Remember azithromycin Allergy Hives Verified 03/03/19 03:18 Beta-Adrenergic Agents Allergy Hives, Verified 03/03/19 03:18 wheezing/bronchospasm budesonide Allergy Tachycardia, Verified 03/03/19 03:18 cough bupropion Allergy unknown Verified 03/03/19 03:18 buspirone [From BuSpar] Allergy unknown Verified 03/03/19 03:18 cephalexin monohydrate Allergy Other Verified 03/03/19 03:18 [From Keflex] clarithromycin [From Biaxin] Allergy Edema Verified 03/03/19 03:18 codeine Allergy Nausea and Verified 03/03/19 03:18 Vomiting duloxetine Allergy Other Verified 03/03/19 03:18 fentanyl [From Duragesic] Allergy Other Verified 03/03/19 03:18 gabapentin Allergy Other Verified 03/03/19 03:18 hydromorphone [From Dilaudid] Allergy unknown Verified 03/03/19 03:18 hylan G-F 20 Allergy Other Verified 03/03/19 03:18 methylprednisolone Allergy Tachycardia Verified 03/03/19 03:18 morphine Allergy Difficulty Verified 03/03/19 03:18 Breathing neomycin Allergy Hives Verified 03/03/19 03:18 olanzapine Allergy unknown Verified 03/03/19 03:18 Penicillins Allergy Cannot Verified 03/03/19 03:18 Remember pregabalin Allergy Other Verified 03/03/19 03:18 rofecoxib [From Vioxx] Allergy Cannot Verified 03/03/19 03:18 Remember senna Allergy Cannot Verified 03/03/19 03:18 Remember sulfamethoxazole Allergy unknown Verified 03/03/19 03:18 tiotropium Allergy Tachycardia Verified 03/03/19 03:18 [From Spiriva with HandiHaler] trimethoprim Allergy unknown Verified 03/03/19 03:18 valsartan [From Diovan] Allergy Vomiting Verified 03/03/19 03:18 zolpidem [From Ambien] Allergy unkown Verified 03/03/19 03:18 mirtazapine AdvReac Unknown unknown Verified 03/03/19 03:18 zinc oratate Allergy Other Uncoded 06/08/18 18:40 Home Meds: Home Meds Lansoprazole 30 mg PO BID 03/03/15 [History] Ondansetron 8 mg PO TID PRN 03/03/15 [History] Polyethylene Glycol 3350 [MiraLAX] 17 gm PO QPM 03/03/15 [History] Verapamil HCl 80 mg PO TID 03/03/15 [History] Hyoscyamine [Hyomax-SL] 0.125 mg SL Q4H PRN 04/09/17 [History] Ipratropium [Atrovent HFA] 12.9 gm IH Q6H PRN 04/09/17 [History] Meclizine [Antivert] 25 mg PO Q6H PRN 04/09/17 [History] Potassium Chloride 20 meq PO DAILY 04/09/17 [History] Calcium Carb/Vit D3/Minerals [Calcium 600+D Plus Minerals] 400 mg PO DAILY 05/12 [History] Ergocalciferol (Vitamin D2) [Drisdol] 50,000 unit PO WEEKLY 05/12/18 [History] Naloxone HCl [Narcan] 4 mg NS ASDIRECTED PRN 05/12/18 [History] Ipratropium [Atrovent] 0.5 mg INH BID PRN 03/03/19 [History] Levothyroxine 112 mcg PO ACBREAKFAST 03/03/19 [History] Sertraline [Zoloft] 100 mg PO BEDTIME 03/03/19 [History] Topiramate [Topamax] 10 mg PO BEDTIME 03/03/19 [History] cloNIDine [Catapres] 0.1 mg PO Q12HR 03/03/19 [History] Past Medical History HEENT History: Reports: Cataract Other HEENT History: currently has oral fungal infection Cardiovascular History: Reports: Arrhythmia, Other (See Below) Other Cardiovascular History: tachycardia, leaky heart valve. Respiratory History: Reports: Asthma, COPD Gastrointestinal History: Reports: Other (See Below) Other Gastrointestinal History: stones in bile duct Genitourinary History: Reports: Other (See Below) Other Genitourinary History: hx of inabilty to void and self cathaterization PROCESS LEAD History: Reports: Musculoskeletal History: Reports: Fibromyalgia Psychiatric History: Reports: Depression Endocrine/Metabolic History: Reports: Hypothyroidism Oncologic (Cancer) History: Reports: Basal Cell Carcinoma Dermatologic History: Reports: Other (See Below) Other Dermatologic History: easily bruises, - Infectious Disease History Infectious Disease History: Reports: Chicken Pox, Shingles - Past Surgical History HEENT Surgical History: Reports: None Respiratory Surgical History: Reports: None GI Surgical History: Reports: Cholecystectomy Female Surgical History: Reports: Hysterectomy Social & Family History - Family History Family Medical History: Noncontributory - Caffeine Use Caffeine Use: Reports: Coffee ED ROS GENERAL - Review of Systems Review Of Systems: See Below Constitutional: Denies: Fever, Chills, Weakness HEENT: Denies: Ear Pain, Rhinitis, Throat Pain, Throat Swelling Respiratory: Denies: Shortness of Breath, Cough, Sputum Cardiovascular: Denies: Chest Pain, Lightheadedness GI/Abdominal: Reports: Abdominal Pain, Distension, Nausea, Vomiting. Denies: Constipation, Diarrhea, Flatus : Denies: Dysuria, Frequency Musculoskeletal: Denies: Joint Pain, Joint Swelling Skin: Denies: Bruising, Pruritis, Rash Neurological: Denies: Confusion, Dizziness, Headache, Numbness, Tingling ED EXAM, GENERAL - Physical Exam Exam: See Below Exam Limited By: No Limitations General Appearance: Alert, WD/WN, Mild Distress Eye Exam: Bilateral Eye: EOMI, PERRL Ears: Normal External Exam, Normal Canal, Hearing Grossly Normal, Normal TMs Ear Exam: Bilateral Ear: Auricle Normal, Canal Normal, TM normal Nose: Normal Inspection, Normal Mucosa, No Blood Throat/Mouth: Normal Inspection, Normal Lips, Normal Teeth, Normal Gums, Normal Oropharynx, Normal Voice, No Airway Compromise Head: Atraumatic, Normocephalic Neck: Normal Inspection, Supple, Non-Tender, Full Range of Motion Respiratory/Chest: No Respiratory Distress, Lungs Clear, Normal Breath Sounds, No Accessory Muscle Use, Chest Non-Tender Cardiovascular: Normal Peripheral Pulses, Regular Rate, Rhythm, No Edema, No Gallop, No JVD, No Murmur, No Rub GI/Abdominal: Distended, Guarding, Tender (periumbilical), Abnormal Bowel Sounds (hypoactive bowel sounds). No: Rigid, Rebound Back Exam: Normal Inspection, Full Range of Motion Extremities: Normal Inspection, Normal Range of Motion, Non-Tender, Normal Capillary Refill, No Pedal Edema Neurological: Alert, Oriented, CN II-XII Intact Course - Vital Signs Text/Narrative:: Pt has had periumbilical pain with abdominal distension since 7 PM today. Her CBC shows elevated whtie count. CMP appear normal. HEr Lipase is elevated at 3648. Pt has acute pancreatitis.Her BUN is 19 with creat of 1.01 with normal GFR. Her calcium is 8.6. Her white count is elevated from inflammatory reaction.Pt is hemodynamically stable. CT abdomen does show pneumobilia, which is chronic, was noted in her previous Ct form Jun 2018. Plan is to admit patient to hospital for conservative management of pancreatitis. Start her on NS IV bolus of 1 litre followed by 200cc/hr for IV hydration to replenish fluid 3rd spacing . Will keep her NPO, discontinue all her Oral meds. Rest the abdomen. Pain control with dilaudid 1mg every 4 hrs. Zofran 4mg IV every 6 hrs for nausea. IF she does start to have vomiting or excessive abdominal distension, will need NG tube insertion.Also strict intake and output monitoring. Will repeat BMP and CBC in 6 hrs. and lipase in 12 hrs. Last Recorded V/S: Last Vital Signs Temp 99.5 F 03/03/19 02:11 Pulse 73 03/03/19 02:11 Resp 22 H 03/03/19 02:11 BP 151/58 H 03/03/19 02:11 Pulse Ox 98 03/03/19 02:11 - Orders/Labs/Meds Orders: Active Orders 24 hr Category Date Time Status Patient Status [ADT] Routine ADT 03/03/19 03:08 Ordered Bedrest Bathroom Privileges [RC] ASDIRECTED Care 03/03/19 03:08 Ordered Height and Weight [RC] UPON Care 03/03/19 03:08 Ordered Intake and Output [RC] QSHIFT Care 03/03/19 03:11 Ordered Oxygen Therapy [RC] PRN Care 03/03/19 03:08 Ordered VTE/DVT Education [] Per Unit Routine Care 03/03/19 03:08 Ordered Vital Signs [RC] Q4H Care 03/03/19 03:08 Ordered Nothing per Oral Now Diet [DIET] Diet 03/03/19 Breakfast Ordered Abdomen Pelvis wo Cont [CT] Stat Exams 03/03/19 03:15 Ordered BASIC METABOLIC PANEL,BMP [CHEM] Routine Lab 03/03/19 09:00 Ordered HYDROmorphone [Dilaudid] Med 03/03/19 03:08 Ordered 1 mg IV Q6H PRN Ondansetron [Zofran] Med 03/03/19 03:08 Ordered 4 mg IV Q6H PRN Sodium Chloride 0.9% [Normal Saline] 500 ml Med 03/03/19 03:15 Ordered IV .BOLUS Sodium Chloride 0.9% [Saline Flush] Med 03/03/19 03:08 Ordered 10 ml FLUSH ASDIRECTED PRN Peripheral IV Insertion Adult [OM.PC] Routine Oth 03/03/19 03:08 Ordered Resuscitation Status Routine Resus Stat 03/03/19 03:08 Ordered Medication Orders Hydromorphone HCl (Dilaudid) 1 mg IV Q6H PRN PRN Reason: Pain (severe 7-10) Sodium Chloride (Normal Saline) 500 mls @ 999 mls/hr IV .BOLUS LEX Ondansetron HCl (Zofran) 4 mg IV Q6H PRN PRN Reason: Nausea/Vomiting Sodium Chloride (Saline Flush) 10 ml FLUSH ASDIRECTED PRN PRN Reason: Keep Vein Open Labs: Laboratory Tests 03/03/19 03/03/19 Range/Units 02:27 02:27 WBC 16.4 H (4.0-11.0) K/uL RBC 4.53 (3.80-5.80) M/uL Hgb 13.3 (11.5-16.5) g/dL Hct 39.8 (37.0-47.0) % MCV 88 (76-96) fL MCH 29.4 (27.0-32.0) pg MCHC 33.4 (31.0-35.0) g/dL RDW 15.4 (11.0-16.0) % Plt Count 261 (150-500) K/uL MPV 9.2 (6.0-10.0) fL Neut % (Auto) 79.5 H (45.0-70.0) % Lymph % (Auto) 12.1 L (20.0-40.0) % [place] % (Auto) 5.9 (3.0-10.0) % Eos % (Auto) 2.1 (1.0-5.0) % Baso % (Auto) 0.4 (0.0-0.5) % Neut # (Auto) 13.02 H (2.00-7.50) K/uL Lymph # (Auto) 1.98 (1.50-4.00) K/uL [place] # (Auto) 0.97 H (0.20-0.80) K/uL Eos # (Auto) 0.34 (0.04-0.40) K/uL Baso # (Auto) 0.06 (0.02-0.10) K/uL Sodium 139 (136-145) mmol/L Potassium 3.9 (3.5-5.1) mmol/L Chloride 101 (98-107) mmol/L Carbon Dioxide 26.7 (21.0-32.0) mmol/L Anion Gap 15.2 H (5.0-15.0) mmol/L BUN 19 D (8-26) mg/dL Creatinine 1.10 H (0.55-1.02) mg/dL Est Cr Clr Drug Dosing 37.68 mL/min Estimated GFR (MDRD) 49 L (>60) MLS/MIN BUN/Creatinine Ratio 17.3 (6-25) Glucose 132 H (74-100) mg/dL Calcium 8.6 (8.5-10.1) mg/dL Total Bilirubin 0.4 D (0.0-1.0) mg/dL AST 15 (15-37) U/L ALT 16 (12-78) U/L Alkaline Phosphatase 98 (46-116) U/L Total Protein 7.4 (6.4-8.2) g/dL Albumin 3.5 (3.4-5.0) g/dL Globulin 3.9 (2.2-4.2) g/dL Albumin/Globulin Ratio 0.9 (0.8-2.0) Lipase 3648 H* D (73-393) U/L Meds: Medications Generic Name Dose Route Start Last Admin Trade Name Freq PRN Reason Stop Dose Admin Hydromorphone HCl 1 mg 03/03/19 03:08 Dilaudid IV Q6H PRN Pain (severe 7-10) Sodium Chloride 500 mls @ 999 mls/hr 03/03/19 03:15 Normal Saline IV .BOLUS LEX Ondansetron HCl 4 mg 03/03/19 03:08 Zofran IV Q6H PRN Nausea/Vomiting Sodium Chloride 10 ml 03/03/19 03:08 Saline Flush FLUSH ASDIRECTED PRN Keep Vein Open Discontinued Medications Generic Name Dose Route Start Last Admin Trade Name Freq PRN Reason Stop Dose Admin Ondansetron HCl 4 mg 03/03/19 02:38 03/03/19 02:39 Zofran Odt PO 03/03/19 02:39 4 mg ONETIME ONE Administration Departure - Departure Time of Disposition: 03:45 Disposition: Admitted As Inpatient 66 Condition: Fair Clinical Impression: Acute pancreatitis Qualifiers: Acute pancreatitis complication: infected necrosis - Discharge Information *PRESCRIPTION DRUG MONITORING PROGRAM REVIEWED*: Not Applicable *COPY OF PRESCRIPTION DRUG MONITORING REPORT IN PATIENT KATINA: Not Applicable - Problem List & Annotations (1) Pancreatitis, acute SNOMED Code(s): 100696729 Code(s): K85.90 - ACUTE PANCREATITIS WITHOUT NECROSIS OR INFECTION, UNSP Status: Acute Priority: High Current Visit: Yes Qualifiers: Acute pancreatitis complication: infected necrosis - Problem List Review Problem List Initiated/Reviewed/Updated: Yes - My Orders Last 24 Hours: My Active Orders 03/03/19 03:08 Patient Status [ADT] Routine Bedrest Bathroom Privileges [RC] ASDIRECTED Height and Weight [RC] UPON Oxygen Therapy [RC] PRN VTE/DVT Education [RC] Per Unit Routine Vital Signs [RC] Q4H HYDROmorphone [Dilaudid] 1 mg IV Q6H PRN Ondansetron [Zofran] 4 mg IV Q6H PRN Sodium Chloride 0.9% [Saline Flush] 10 ml FLUSH ASDIRECTED PRN Peripheral IV Insertion Adult [OM.PC] Routine Resuscitation Status Routine 03/03/19 03:11 Intake and Output [RC] QSHIFT 03/03/19 03:15 Abdomen Pelvis wo Cont [CT] Stat Sodium Chloride 0.9% [Normal Saline] 500 ml IV .BOLUS 03/03/19 09:00 BASIC METABOLIC PANEL,BMP [CHEM] Routine 03/03/19 Breakfast Nothing per Oral Now Diet [DIET] - Assessment/Plan Last 24 Hours: My Active Orders 03/03/19 03:08 Patient Status [ADT] Routine Bedrest Bathroom Privileges [RC] ASDIRECTED Height and Weight [RC] UPON Oxygen Therapy [RC] PRN VTE/DVT Education [RC] Per Unit Routine Vital Signs [RC] Q4H HYDROmorphone [Dilaudid] 1 mg IV Q6H PRN Ondansetron [Zofran] 4 mg IV Q6H PRN Sodium Chloride 0.9% [Saline Flush] 10 ml FLUSH ASDIRECTED PRN Peripheral IV Insertion Adult [OM.PC] Routine Resuscitation Status Routine 03/03/19 03:11 Intake and Output [RC] QSHIFT 03/03/19 03:15 Abdomen Pelvis wo Cont [CT] Stat Sodium Chloride 0.9% [Normal Saline] 500 ml IV .BOLUS 03/03/19 09:00 BASIC METABOLIC PANEL,BMP [CHEM] Routine 03/03/19 Breakfast Nothing per Oral Now Diet [DIET] Assessment:: Acute pancreatitis Plan: Pt has had periumbilical pain with abdominal distension since 7 PM today. Her CBC shows elevated whtie count. CMP appear normal. HEr Lipase is elevated at 3648. Pt has acute pancreatitis.Her BUN is 19 with creat of 1.01 with normal GFR. Her calcium is 8.6. Her white count is elevated from inflammatory reaction.Pt is hemodynamically stable. CT abdomen does show pneumobilia, which is chronic, was noted in her previous Ct form Jun 2018. Plan is to admit patient to hospital for conservative management of pancreatitis. Start her on NS IV bolus of 1 litre followed by 200cc/hr for IV hydration to replenish fluid 3rd spacing . Will keep her NPO, discontinue all her Oral meds. Rest the abdomen. Pain control with dilaudid 1mg every 4 hrs. Zofran 4mg IV every 6 hrs for nausea. IF she does start to have vomiting or excessive abdominal distension, will need NG tube insertion.Also strict intake and output monitoring. Will repeat BMP and CBC in 6 hrs. and lipase in 12 hrs.
[2019-03-03] MEDS ORDERED: LORazepam 2 MG/ML SDV ONE (04:30)
[2019-03-03] MEDS: Sodium Chloride 0.9% 1,000 ML IV SCH ×4 (04:46→23:43)
[2019-03-03] MEDS ORDERED: LORazepam 2 MG/ML SDV IVPUSH ONE (04:54)
[2019-03-03] MEDS ORDERED: HYDROmorphone 2 MG/ML Syringe IV PRN (04:55)
[2019-03-03] MEDS: HYDROmorphone 2 MG/ML SDV IVPUSH PRN ×5 (08:00→22:09)
--- NOTE | 2019-03-03 09:00 | CT ---
Date of Service: 03/03/19 Clinical Data: pancreatitis , acute abdomen, elevated lipase UNENHANCED ABDOMEN AND PELVIC CT: Multislice acquisition through the abdomen and pelvis without IV or oral contrast was performed. No priors. There are minimal atelectatic changes in both lung bases. The lung bases are otherwise clear. The liver is normal size with homogeneous attenuation. No focal hepatic lesions. Gallbladder is absent. There is moderate pneumobilia most likely related to prior surgery. The spleen appears normal. The pancreas is normal size. There is, however, peripancreatic fat stranding adjacent to the head, body, and tail of the pancreas consistent with pancreatitis. No evidence of pancreatic mass or phlegmon. No pancreatic duct dilatation. The right and left adrenals appear normal. There are small nonobstructing renal calculi bilaterally. The kidneys otherwise appear normal. No hydronephrosis or hydroureter. The bladder is slightly filled and appears normal. The patient is status post hysterectomy. No evidence of appendicitis. There is mild diverticulosis of the descending and sigmoid colon. No evidence of diverticulitis. There is a small umbilical hernia containing fat. No free air. No free fluid. No dilated loops of bowel. No adenopathy. IMPRESSION: Findings consistent with pancreatitis. See above. [id number] MTDD
[2019-03-03] MEDS: Ondansetron 4 MG/2 ML SDV IV PRN ×2 (15:14→21:42)
--- NOTE | 2019-03-03 16:13 | PCM.SN ---
- Free Text/Narrative Note: Pt was seen at 3[facility] as she has been c/o pain. Pt does not appear to be in any acute distress. Her vitals are stable. Her pulse is 78 and her BP is 150/ 72mmhg. On clinical exam patient's abdomen is soft. Her labs are improving. Her creat is down from 1.10 to 0.94, BUN from 19-18, WBC is 16.4 to 15, Lipase is down trending too from 3648 down to 3181 in 12 hrs. Her abdomen is soft and has hypoactive bowel sounds. CT showed no bowel obstruction, pancreatic phlegmon or pseudocyst. Clinical signs are improving, but patient pain has not been controlled on dilaudid 1mg every 4 hrs. Pt's subjective pain is over exacerbate. I cannot explain why she is in pain. I do not think she is having severe pancreatitis causing bowel obstruction or pancreatic abscess, will repeat her CT abdomen to see if there has been any hemorrhage around the Pancrease or has been developing small bowel obstruction. Also her white count is down trending, she is running Temp of 99.6F, will cover her with zosyn IV empirically. Pt does have significant history of narcotic abuse and was just tapered off her methadone over several months now, I would like to be cautious on narcotic use. Also excessive narcotic use can cause spasm of sphincter of Erlin, which is my concern, which can worsen pancreatitis.
[2019-03-03] MEDS ORDERED: Levofloxacin/Dextrose 5%-Water 500 MG in Premix Bag 1 BAG IV SCH (17:00)
[2019-03-03] MEDS: diphenhydrAMINE 50 MG/ML SDV IVPUSH PRN (17:30)
[2019-03-03] MEDS ORDERED: diphenhydrAMINE 50 MG/ML SDV ONE (17:34)
[2019-03-04] MEDS: HYDROmorphone 2 MG/ML SDV IVPUSH PRN ×6 (02:11→22:25)
[2019-03-04] MEDS: Ondansetron 4 MG/2 ML SDV IV PRN ×4 (04:00→22:23)
[2019-03-04] MEDS: diphenhydrAMINE 50 MG/ML SDV IVPUSH PRN ×2 (04:05→13:09)
--- NOTE | 2019-03-04 07:35 | CT ---
Date of Service: 03/03/19 Clinical Data: worsening abdominal pain UNENHANCED CT ABDOMEN AND PELVIC CT: Multislice acquisition through the abdomen and pelvis without IV or oral contrast was performed. Comparison was made to a prior exam dated 07/01/18. The lung bases are clear. The unenhanced liver is normal size. No focal hepatic lesions. The patient is status post cholecystectomy. There is moderate pneumobilia, unchanged from the prior study. The spleen appears normal. DICTATION CANCELED. [id number] [facility]
[2019-03-04] MEDS ORDERED: Levofloxacin/Dextrose 5%-Water 50 ML IV ONE (07:53)
[2019-03-04] MEDS: Levofloxacin/Dextrose 5%-Water 250 MG in Premix Bag 1 BAG IV SCH (08:41)
--- NOTE | 2019-03-04 09:14 | PCM.PN ---
- General Info Date of Service: 03/04/19 Subjective Update: Pt continues to rate her pain at 10/10. Asking for more pain medication. She claims it still hurts in her abdomen and radiates into her mid back. No fever or chills. No abdominal distension. Has been passing some flatus. Have decreased her IV NS to 150cc/hr. Has had uneventful night. C/o nausea. no vomiting. Functional Status: Reports: Pain Controlled, Ambulating, Urinating. Denies: Tolerating Diet Pain Score: 10 (pt's subjective complaint) - Review of Systems General: Denies: Fever, Weakness, Fatigue, Malaise HEENT: Denies: Headaches, Sinus Congestion, Rhinitis Pulmonary: Denies: Shortness of Breath, Cough, Sputum Cardiovascular: Denies: Chest Pain, Lightheadedness Gastrointestinal: Reports: Abdominal Pain, Flatus, Nausea. Denies: Diarrhea, Vomiting Genitourinary: Denies: Dysuria, Frequency Musculoskeletal: Reports: Back Pain (midback). Denies: Joint Pain, Joint Swelling Skin: Denies: Bruising, Pruritis, Rash - Patient Data Vitals - Most Recent: Last Vital Signs Temp 99.2 F 03/04/19 06:00 Pulse 62 03/04/19 06:00 Resp 16 03/04/19 06:00 BP 146/66 H 03/04/19 06:00 Pulse Ox 97 03/04/19 06:00 Weight - Most Recent: 78.018 kg I&O - Last 24 Hours: Intake & Output 03/03/19 03/04/19 03/04/19 22:59 06:59 14:59 Intake Total 1909 1800 50 Output Total 275 2025 Balance 1634 -225 50 Lab Results Last 24 Hours: Laboratory Results - last 24 hr 03/03/19 03/03/19 03/03/19 Range/Units 09:10 09:12 14:00 WBC 15.0 H (4.0-11.0) K/uL RBC 3.97 (3.80-5.80) M/uL Hgb 11.7 (11.5-16.5) g/dL Hct 35.5 L (37.0-47.0) % MCV 89 (76-96) fL MCH 29.5 (27.0-32.0) pg MCHC 33.0 (31.0-35.0) g/dL RDW 15.6 (11.0-16.0) % Plt Count 225 (150-500) K/uL MPV 9.8 (6.0-10.0) fL Neut % (Auto) 80.0 H (45.0-70.0) % Lymph % (Auto) 12.5 L (20.0-40.0) % [place] % (Auto) 6.2 (3.0-10.0) % Eos % (Auto) 1.0 (1.0-5.0) % Baso % (Auto) 0.3 (0.0-0.5) % Neut # (Auto) 11.97 H (2.00-7.50) K/uL Lymph # (Auto) 1.87 (1.50-4.00) K/uL [place] # (Auto) 0.93 H (0.20-0.80) K/uL Eos # (Auto) 0.15 (0.04-0.40) K/uL Baso # (Auto) 0.05 (0.02-0.10) K/uL Sodium 140 (136-145) mmol/L Potassium 4.4 (3.5-5.1) mmol/L Chloride 105 (98-107) mmol/L Carbon Dioxide 27.3 (21.0-32.0) mmol/L Anion Gap 12.1 (5.0-15.0) mmol/L BUN 18 (8-26) mg/dL Creatinine 0.94 (0.55-1.02) mg/dL Est Cr Clr Drug Dosing 44.09 mL/min Estimated GFR (MDRD) 58 L (>60) MLS/MIN BUN/Creatinine Ratio 19.1 (6-25) Glucose 119 H (74-100) mg/dL Calcium 7.5 L (8.5-10.1) mg/dL Lipase 3181 H* (73-393) U/L 03/04/19 03/04/19 Range/Units 08:00 08:00 WBC 15.1 H (4.0-11.0) K/uL RBC 4.25 (3.80-5.80) M/uL Hgb 12.4 (11.5-16.5) g/dL Hct 38.1 (37.0-47.0) % MCV 90 (76-96) fL MCH 29.2 (27.0-32.0) pg MCHC 32.5 (31.0-35.0) g/dL RDW 15.6 (11.0-16.0) % Plt Count 175 D (150-500) K/uL MPV 9.1 (6.0-10.0) fL Neut % (Auto) 79.2 H (45.0-70.0) % Lymph % (Auto) 12.2 L (20.0-40.0) % [place] % (Auto) 7.0 (3.0-10.0) % Eos % (Auto) 1.1 (1.0-5.0) % Baso % (Auto) 0.5 (0.0-0.5) % Neut # (Auto) 11.94 H (2.00-7.50) K/uL Lymph # (Auto) 1.84 (1.50-4.00) K/uL [place] # (Auto) 1.05 H (0.20-0.80) K/uL Eos # (Auto) 0.17 (0.04-0.40) K/uL Baso # (Auto) 0.07 (0.02-0.10) K/uL Sodium 140 (136-145) mmol/L Potassium 4.0 (3.5-5.1) mmol/L Chloride 104 (98-107) mmol/L Carbon Dioxide 24.0 (21.0-32.0) mmol/L Anion Gap 16.0 H (5.0-15.0) mmol/L BUN 14 D (8-26) mg/dL Creatinine 0.84 (0.55-1.02) mg/dL Est Cr Clr Drug Dosing 49.34 mL/min Estimated GFR (MDRD) > 60 (>60) MLS/MIN BUN/Creatinine Ratio 16.7 (6-25) Glucose 96 (74-100) mg/dL Calcium 8.1 L (8.5-10.1) mg/dL Lipase (73-393) U/L Med Orders - Current: Current Medications Diphenhydramine HCl (Benadryl) 25 mg IVPUSH Q6H PRN PRN Reason: Anxiety Last Admin: 03/04/19 04:05 Dose: 25 mg Hydromorphone HCl (Dilaudid) 1 mg IVPUSH Q4H PRN PRN Reason: SEVERE PAIN (7-10) Last Admin: 03/04/19 06:11 Dose: 1 mg Sodium Chloride (Normal Saline) 1,000 mls @ 150 mls/hr IV ASDIRECTED [facility]EX Last Admin: 03/03/19 23:43 Dose: 150 mls/hr Levofloxacin/Dextrose 250 mg/ (Premix) 50 mls @ 50 mls/hr IV Q24H [facility] Last Admin: 03/04/19 08:41 Dose: Not Given Ondansetron HCl (Zofran) 4 mg IV Q6H PRN PRN Reason: Nausea/Vomiting Last Admin: 03/04/19 04:00 Dose: 4 mg Sodium Chloride (Saline Flush) 10 ml FLUSH ASDIRECTED PRN PRN Reason: Keep Vein Open Discontinued Medications Diphenhydramine HCl (Benadryl) Confirm Administered Dose 50 mg .ROUTE .STK-MED ONE Stop: 03/03/19 17:35 Last Admin: 03/03/19 17:44 Dose: Not Given Hydromorphone HCl (Dilaudid) 1 mg IV Q6H PRN PRN Reason: Pain (severe 7-10) Last Admin: 03/03/19 04:10 Dose: 1 mg Sodium Chloride (Normal Saline) 500 mls @ 999 mls/hr IV .BOLUS [facility] Last Admin: 03/03/19 03:45 Dose: 999 mls/hr Levofloxacin/Dextrose 500 mg/ (Premix) 100 mls @ 100 mls/hr IV Q24H [facility] Last Admin: 03/03/19 17:39 Dose: 100 mls/hr Levofloxacin/Dextrose (Levaquin In D5w 250 Mg/50 Ml) Confirm Administered Dose 50 mls @ as directed IV .STK-MED ONE Stop: 03/04/19 07:54 Last Admin: 03/04/19 07:58 Dose: 50 mls/hr Lorazepam (Ativan) Confirm Administered Dose 2 mg .ROUTE .STK-MED ONE Stop: 03/03/19 04:31 Last Admin: 03/03/19 09:55 Dose: Not Given Lorazepam (Ativan) 1 mg IVPUSH ONETIME ONE Stop: 03/03/19 04:55 Last Admin: 03/03/19 04:30 Dose: 1 mg Ondansetron HCl (Zofran Odt) 4 mg PO ONETIME ONE Stop: 03/03/19 02:39 Last Admin: 03/03/19 02:39 Dose: 4 mg - Exam Quality Assessment: Urine Catheter (for output monitoring) General: Alert, Oriented HEENT: Pupils Equal, Pupils Reactive, EOMI, Mucous Membr. Moist/[place] Neck: Supple Lungs: Clear to Auscultation, Normal Respiratory Effort Cardiovascular: Regular Rate, Regular Rhythm GI/Abdominal Exam: Normal Bowel Sounds, Soft, No Organomegaly, No Distention, No Abnormal Bruit, No Mass, Pelvis Stable, Tender (periumbilical minimal tenderness). No: Guarding, Rigid, Rebound Extremities: Normal Inspection, Normal Range of Motion, Non-Tender, No Pedal Edema, Normal Capillary Refill Skin: Warm, Intact Neurological: No New Focal Deficit - Problem List & Annotations (1) Pancreatitis, acute SNOMED Code(s): 098880147 Code(s): K85.90 - ACUTE PANCREATITIS WITHOUT NECROSIS OR INFECTION, UNSP Status: Acute Priority: High Current Visit: Yes Qualifiers: Acute pancreatitis complication: infected necrosis - Problem List Review Problem List Initiated/Reviewed/Updated: Yes - My Orders Last 24 Hours: My Active Orders 03/03/19 15:17 Abdomen Pelvis wo Cont [CT] Routine 03/03/19 17:40 diphenhydrAMINE [Benadryl] 25 mg IVPUSH Q6H PRN 03/04/19 08:00 LIPASE, SERUM Routine Levofloxacin/Dextrose 5%-Water [Levaquin in D5W 250 MG/50 ML] 250 mg Premix Bag 1 bag IV Q24H - Assessment Assessment:: Acute pancreatitis improving - Plan Plan:: Pt clinically has been doing well. Has been afebrile, benign abdominal exam other than mild periumbilical tenderness. Her White count is 15K, related to tissue inflammation asso with pancreatitis. Her BUN is 14, creat is down to 0.84 , Lipase down form 3800 to 961 today. calcium is 8.1 today. She is having good urinary output. Her pain is out of range with her objective finding. Pt sits on the bed side asking when is her next pain medication. There are no objective findings explaining her pain. Vitals are stable. Because of patient insisting that she is in pain, we did repeat Ct abdomen yesterday and pancreas appeared normal. There is no phlegmon or pancreatic abscess. Pt claims that she has had vertebral fracture which is chronic and she ahs not been on any pain medication for that. Advised heating pad to the back. Pt does not have SBO, or any acute changes in her condition to cause her to have extreme pain when all her labs are improving. I am hesitant to treat patient's with excessive narcotics pain meds when I cant have objective findings, and especially in people who has had history of narcotic abuse and addiction. Plan is to continue medication regime and Iv fluids today and recheck lipase tomorrow, once the lipase is close to normal, will start oral fluids and discontinue Iv fluids.
[2019-03-04] MEDS: Sodium Chloride 0.9% 1,000 ML IV SCH ×3 (10:35→23:55)
--- NOTE | 2019-03-04 10:44 | CT ---
DATE OF SERVICE: 03/03/19 at 3:31 p.m. CLINICAL DATA: worsening abdominal pain UNENHANCED ABDOMEN AND PELVIC CT: Multislice acquisition through the abdomen and pelvis without IV or oral contrast was performed. Comparison is made to a prior exam performed earlier in the day. Again noted are the changes consistent with pancreatitis. No evidence of pancreatic abscess or phlegmon. The remainder of the exam is unchanged. [id number] [facility]
[2019-03-04] MEDS ORDERED: Acetaminophen 650 MG Supp RECTAL ONE (16:30)
[2019-03-05] MEDS: HYDROmorphone 2 MG/ML SDV IVPUSH PRN ×5 (02:41→22:13)
[2019-03-05] MEDS: Ondansetron 4 MG/2 ML SDV IV PRN ×3 (04:15→21:04)
[2019-03-05] MEDS: diphenhydrAMINE 50 MG/ML SDV IVPUSH PRN (04:30)
[2019-03-05] MEDS: Sodium Chloride 0.9% 1,000 ML IV SCH (06:28)
[2019-03-05] MEDS ORDERED: Levofloxacin/Dextrose 5%-Water 50 ML IV ONE (08:29)
[2019-03-05] MEDS: Levofloxacin/Dextrose 5%-Water 250 MG in Premix Bag 1 BAG IV SCH (08:34)
[2019-03-05] MEDS ORDERED: Acetaminophen 650 MG Supp ONE (10:43)
--- NOTE | 2019-03-05 11:42 | PCM.PN ---
- General Info Date of Service: 03/05/19 Subjective Update: Pt claims she is feeling better. Has some pain in over the left side of the abdomen. Passing flatus. Has not passed stool. She has remained afebrile. Vitals stable. No nausea , and has not vomited since admission. Is having good clear urine in the urobag.I/O is 3800/2400. Pt is doing well. Functional Status: Reports: Pain Controlled, Ambulating, Urinating - Review of Systems General: Denies: Fever, Weakness, Fatigue HEENT: Denies: Eye Pain, Headaches, Sore Throat Pulmonary: Denies: Cough, Sputum Gastrointestinal: Reports: Abdominal Pain (lelf lower quadrant), Flatus. Denies : Diarrhea, Vomiting Genitourinary: Denies: Dysuria, Frequency Musculoskeletal: Denies: Joint Pain, Joint Swelling Skin: Denies: Bruising, Pruritis, Rash Neurological: Denies: Confusion, Dizziness, Headache, Numbness, Tingling - Patient Data Vitals - Most Recent: Last Vital Signs Temp 99.7 F 03/05/19 07:30 Pulse 72 03/05/19 06:31 Resp 18 03/05/19 07:30 BP 168/73 H 03/05/19 07:30 Pulse Ox 98 03/05/19 07:30 Weight - Most Recent: 78.018 kg I&O - Last 24 Hours: Intake & Output 03/04/19 03/05/19 03/05/19 22:59 06:59 14:59 Intake Total 1608 1820 Output Total 300 575 Balance 1308 1245 Lab Results Last 24 Hours: Laboratory Results - last 24 hr 03/05/19 03/05/19 03/05/19 Range/Units 08:00 08:00 08:00 WBC 14.2 H (4.0-11.0) K/uL RBC 3.81 (3.80-5.80) M/uL Hgb 11.3 L (11.5-16.5) g/dL Hct 34.5 L (37.0-47.0) % MCV 91 (76-96) fL MCH 29.7 (27.0-32.0) pg MCHC 32.8 (31.0-35.0) g/dL RDW 15.7 (11.0-16.0) % Plt Count 150 (150-500) K/uL MPV 9.1 (6.0-10.0) fL Neut % (Auto) 76.0 H (45.0-70.0) % Lymph % (Auto) 13.3 L (20.0-40.0) % [place] % (Auto) 7.4 (3.0-10.0) % Eos % (Auto) 2.8 (1.0-5.0) % Baso % (Auto) 0.5 (0.0-0.5) % Neut # (Auto) 10.81 H (2.00-7.50) K/uL Lymph # (Auto) 1.90 (1.50-4.00) K/uL [place] # (Auto) 1.06 H (0.20-0.80) K/uL Eos # (Auto) 0.40 (0.04-0.40) K/uL Baso # (Auto) 0.07 (0.02-0.10) K/uL Sodium 141 (136-145) mmol/L Potassium 4.0 (3.5-5.1) mmol/L Chloride 107 (98-107) mmol/L Carbon Dioxide 24.2 (21.0-32.0) mmol/L Anion Gap 13.8 (5.0-15.0) mmol/L BUN 14 (8-26) mg/dL Creatinine 0.78 (0.55-1.02) mg/dL Est Cr Clr Drug Dosing 53.14 mL/min Estimated GFR (MDRD) > 60 (>60) MLS/MIN BUN/Creatinine Ratio 17.9 (6-25) Glucose 76 (74-100) mg/dL Calcium 8.0 L (8.5-10.1) mg/dL Lipase 141 D (73-393) U/L [place] Results Last 24 Hours: Microbiology 03/03/19 07:30 MRSA Surveillance Culture - Final Nares, Unspecified NO MRSA ISOLATED Med Orders - Current: Current Medications Diphenhydramine HCl (Benadryl) 25 mg IVPUSH Q6H PRN PRN Reason: Anxiety Last Admin: 03/05/19 04:30 Dose: 25 mg Hydromorphone HCl (Dilaudid) 1 mg IVPUSH Q4H PRN PRN Reason: SEVERE PAIN (7-10) Last Admin: 03/05/19 07:20 Dose: 1 mg Sodium Chloride (Normal Saline) 1,000 mls @ 150 mls/hr IV ASDIRECTED [facility] Last Admin: 03/05/19 06:28 Dose: 150 mls/hr Levofloxacin/Dextrose 250 mg/ (Premix) 50 mls @ 50 mls/hr IV Q24H [facility] Last Admin: 03/05/19 08:34 Dose: 50 mls/hr Ondansetron HCl (Zofran) 4 mg IV Q6H PRN PRN Reason: Nausea/Vomiting Last Admin: 03/05/19 04:15 Dose: 4 mg Sodium Chloride (Saline Flush) 10 ml FLUSH ASDIRECTED PRN PRN Reason: Keep Vein Open Discontinued Medications Acetaminophen (Tylenol) 650 mg RECTAL NOW ONE Stop: 03/04/19 16:31 Last Admin: 03/04/19 16:45 Dose: 650 mg Acetaminophen (Tylenol) Confirm Administered Dose 650 mg .ROUTE .STK-MED ONE Stop: 03/05/19 10:44 Last Admin: 03/05/19 10:45 Dose: 650 mg Diphenhydramine HCl (Benadryl) Confirm Administered Dose 50 mg .ROUTE .STK-MED ONE Stop: 03/03/19 17:35 Last Admin: 03/03/19 17:44 Dose: Not Given Hydromorphone HCl (Dilaudid) 1 mg IV Q6H PRN PRN Reason: Pain (severe 7-10) Last Admin: 03/03/19 04:10 Dose: 1 mg Sodium Chloride (Normal Saline) 500 mls @ 999 mls/hr IV .BOLUS [facility] Last Admin: 03/03/19 03:45 Dose: 999 mls/hr Levofloxacin/Dextrose 500 mg/ (Premix) 100 mls @ 100 mls/hr IV Q24H [facility] Last Admin: 03/03/19 17:39 Dose: 100 mls/hr Levofloxacin/Dextrose (Levaquin In D5w 250 Mg/50 Ml) Confirm Administered Dose 50 mls @ as directed IV .STK-MED ONE Stop: 03/04/19 07:54 Last Admin: 03/04/19 07:58 Dose: 50 mls/hr Levofloxacin/Dextrose (Levaquin In D5w 250 Mg/50 Ml) Confirm Administered Dose 50 mls @ as directed IV .STK-MED ONE Stop: 03/05/19 08:30 Last Admin: 03/05/19 08:35 Dose: Not Given Lorazepam (Ativan) Confirm Administered Dose 2 mg .ROUTE .STK-MED ONE Stop: 03/03/19 04:31 Last Admin: 03/03/19 09:55 Dose: Not Given Lorazepam (Ativan) 1 mg IVPUSH ONETIME ONE Stop: 03/03/19 04:55 Last Admin: 03/03/19 04:30 Dose: 1 mg Ondansetron HCl (Zofran Odt) 4 mg PO ONETIME ONE Stop: 03/03/19 02:39 Last Admin: 03/03/19 02:39 Dose: 4 mg - Exam General: Alert, Oriented HEENT: Pupils Equal, Pupils Reactive, EOMI, Mucous Membr. Moist/[place] Neck: Supple Lungs: Clear to Auscultation, Normal Respiratory Effort Cardiovascular: Regular Rate, Regular Rhythm GI/Abdominal Exam: Normal Bowel Sounds, Soft, Non-Tender, No Organomegaly, No Distention, No Abnormal Bruit, No Mass, Pelvis Stable, Tender (vague minimal discomfort inthe left lower quadrant.). No: Guarding, Rigid, Rebound Extremities: Normal Inspection, Normal Range of Motion, Non-Tender, No Pedal Edema, Normal Capillary Refill Skin: Warm, Intact - Problem List & Annotations (1) Pancreatitis, acute SNOMED Code(s): 186162455 Code(s): K85.90 - ACUTE PANCREATITIS WITHOUT NECROSIS OR INFECTION, UNSP Status: Acute Priority: Low Current Visit: Yes Qualifiers: Acute pancreatitis complication: infected necrosis - Problem List Review Problem List Initiated/Reviewed/Updated: Yes - My Orders Last 24 Hours: My Active Orders 03/05/19 Lunch Clear Liquid Diet [DIET] Soft Diet [DIET] - Assessment Assessment:: Acute pancreatitis resolved - Plan Plan:: Pt clinically has been doing well. Has been afebrile, benign abdominal exam other than mild periumbilical tenderness. Her White count is 15K, related to tissue inflammation asso with pancreatitis. Her BUN is 14, creat is down to 0.84 , Lipase down form 3800 to 961 today. calcium is 8.1 today. She is having good urinary output. Her pain is out of range with her objective finding. Pt sits on the bed side asking when is her next pain medication. There are no objective findings explaining her pain. Vitals are stable. Because of patient insisting that she is in pain, we did repeat Ct abdomen yesterday and pancreas appeared normal. There is no phlegmon or pancreatic abscess. Pt claims that she has had vertebral fracture which is chronic and she ahs not been on any pain medication for that. Advised heating pad to the back. Pt does not have SBO, or any acute changes in her condition to cause her to have extreme pain when all her labs are improving. I am hesitant to treat patient's with excessive narcotics pain meds when I cant have objective findings, and especially in people who has had history of narcotic abuse and addiction. Plan is to continue medication regime and Iv fluids today and recheck lipase tomorrow, once the lipase is close to normal, will start oral fluids and discontinue Iv fluids. 03/05/19 Pt is doing better, c/o mild pain in the LLQ, appears like colic. Abdomen is soft to palpation. Good Bowel sounds heard. Her Vitals are stable. Today's lab work. CBC show white count of 14k, BMP shows normal electrolytes , Creat is o.64 and BUN is 14. Calcium is 8.6. Her Lipase is down to 141-WNL. Pt reassured that her pancreatitis has resolved. She is well hydrated and all the criteria monitored are stable. Will discontinue IV fluids. Will DC urinary catheter Start her on clear liquids. Will advance to soft diet if she tolerate fluids. Will restart her home meds. Anticipate discharge tomorrow.
[2019-03-05] MEDS ORDERED: Non-Formulary Medication 1 Each (Naloxone Hcl [Narcan] 4 MG) NS PRN (20:56)
[2019-03-05] MEDS ORDERED: HYOSCYAMINE 0.125 MG SL PRN (20:56)
[2019-03-05] MEDS ORDERED: Ipratropium 0.02% 0.5 MG/2.5 ML Neb Soln INH PRN ×2 (20:56)
[2019-03-05] MEDS ORDERED: Ondansetron 4 MG Tab.DIS PO PRN (21:15)
[2019-03-05] MEDS ORDERED: Sertraline 100 MG Tab PO SCH (21:39)
[2019-03-05] MEDS ORDERED: Topiramate 25 MG Tab PO SCH (21:40)
[2019-03-05] MEDS ORDERED: Acetaminophen 325 MG Tab PO PRN (21:40)
[2019-03-05] MEDS: LANSOPRAZOLE 30 MG PO SCH (21:54)
[2019-03-05] MEDS: cloNIDine 0.1 MG Tab PO SCH (21:58)
[2019-03-05] MEDS: Verapamil 80 MG Tab PO SCH (21:58)
[2019-03-06] MEDS: HYDROmorphone 2 MG/ML SDV IVPUSH PRN (05:01)
[2019-03-06] MEDS ORDERED: Levothyroxine 112 MCG Tab PO SCH (07:00)
[2019-03-06] MEDS ORDERED: Levofloxacin/Dextrose 5%-Water 50 ML IV ONE (07:26)
[2019-03-06] MEDS ORDERED: Calcium Carbonate/Vitamin D3 1500 MG-400 Units Tab ONE (07:34)
[2019-03-06] MEDS: Levofloxacin/Dextrose 5%-Water 250 MG in Premix Bag 1 BAG IV SCH (07:37)
[2019-03-06] MEDS: cloNIDine 0.1 MG Tab PO SCH (07:44)
[2019-03-06] MEDS: Verapamil 80 MG Tab PO SCH (07:46)
[2019-03-06] MEDS ORDERED: CALCIUM CARB PO SCH (08:00)
[2019-03-06] MEDS ORDERED: Potassium Chloride 20 MEQ Tab.ER PO SCH (08:00)
[2019-03-06] MEDS ORDERED: VIT D3 PO SCH (08:00)
[2019-03-06] MEDS ORDERED: MINERALS PO SCH (08:00)
[2019-03-06] MEDS ORDERED: [UNRECOGNIZED DRUG - OTHER] PO SCH (08:00)
--- NOTE | 2019-03-06 08:31 | PCM.DCSUM1 ---
Discharge Summary - Hospital Course Free Text/Narrative:: Pt presented to emergency room on 03/03/19 with c/o abdominal pain with nausea, she was diagnosed with acute pancreatitis with lipase of 3648.CBC showed mild elevation of white count at 16.4K and BMP had stable electrolyte with creat of 1.1 and BUN of 19. Pt had no secondary complications on her CT abdomen. She was admitted for conservative management of pancreatitis. Pt was kept NPO, she did receive a bolus of 1 litre of NS in the emergency room followed by NS at 200cc/ hr. Stick I/O. Pain control with Dilaudid IV 1mg every 4hrs and zofran Iv every 6 hrs for nausea/vomiting. Apparently 6 hrs after admission patient started to c/o of worsening abdominal pain and requesting more pain meds. Her clinical exam was normal and her vitals including her blood pressure was stable. Per patient request, CT abdomen was repeated and appear unchanged form her previous CT. Pt has mild urinary bladder distension, hecne Urinary catheter was placed to prevent the discomfort and also to help with output monitoring. On 03/04/19, Pt still c/o abdominal pain more so in the left lower quadrant.Vitals stable, afebrile. Pt's Lipase was down to 961, Stable BMP and also her hydration improved, as her white count was still elevated, empirically started on levaquin 500mg IV followed by 250mg daily. IV fluids continued and NPO. 0n 03/05/19 patient was feeling better her abdominal pain had resolved, also clinical exam was normal, vitals stable. Her lipase was down to 141, within normal limits. Pt was started on clear liquids in the morning. She did tolerte it well and no symptkms. Diet was advance to soft diet for lunch. IV fluids and Jessica discontinued. Encourage oral hydration. Also home meds were started. 0n 03/06/19, Pt has no abdominal pain,tolerating oral diet well. Vitals stable, clinical exam is normal.Has not had bowel movement , but passing flatus. Pt is planned for discharge home today.Pt's white count is 14.9, she has no other symptoms, this might be related to inflammatory reaction form her pancreatitis, as she has been on levaquin, will continue oral Levaquin 250mg daily for another 4 days. Advised low fat and low protein diet for next 1 wk. rest and hydration. Continue home meds. Brief History: Pt presented to emergency rooo with sudden onset of periumblical pain, work up in the ER showed elevated lipase consistent with acute pancretitis. Admitted for management of acute pancreatitis. Kindly see H& P for details. Diagnosis: Stroke: No Modified [place] Scale: No Symptoms at All Modified [place] Scale Score: 0 - Discharge Data Discharge Date: 03/06/19 Discharge Disposition: Home, Self-Care 01 Condition: Good - Discharge Diagnosis/Problem(s) (1) Pancreatitis, acute SNOMED Code(s): 619129638 ICD Code: K85.90 - ACUTE PANCREATITIS WITHOUT NECROSIS OR INFECTION, UNSP Status: Acute Priority: Low Current Visit: Yes Qualifiers: Acute pancreatitis complication: infected necrosis - Patient Instructions Diet: Renal Diet (low fat and low protein diet for 1 wk) Fluid Restriction: 1500 mL Activity: As Tolerated Showering/Bathing: May Shower - Discharge Plan *PRESCRIPTION DRUG MONITORING PROGRAM REVIEWED*: Not Applicable *COPY OF PRESCRIPTION DRUG MONITORING REPORT IN PATIENT KATINA: Not Applicable Home Medications: Home Meds Lansoprazole 30 mg PO BID 03/03/15 [History] Ondansetron 8 mg PO TID PRN 03/03/15 [History] Verapamil HCl 80 mg PO TID 03/03/15 [History] Hyoscyamine [Hyomax-SL] 0.125 mg SL Q4H PRN 04/09/17 [History] Ipratropium [Atrovent HFA] 12.9 gm IH Q6H PRN 04/09/17 [History] Meclizine [Antivert] 25 mg PO Q6H PRN 04/09/17 [History] Potassium Chloride 20 meq PO DAILY 04/09/17 [History] Calcium Carb/Vit D3/Minerals [Calcium 600+D Plus Minerals] 400 mg PO DAILY 05/12 [History] Ergocalciferol (Vitamin D2) [Drisdol] 50,000 unit PO WEEKLY 05/12/18 [History] Naloxone HCl [Narcan] 4 mg NS ASDIRECTED PRN 05/12/18 [History] Ipratropium [Atrovent] 0.5 mg INH BID PRN 03/03/19 [History] Levothyroxine 112 mcg PO ACBREAKFAST 03/03/19 [History] Sertraline [Zoloft] 100 mg PO BEDTIME 03/03/19 [History] Topiramate [Topamax] 10 mg PO BEDTIME 03/03/19 [History] cloNIDine [Catapres] 0.1 mg PO Q12HR 03/03/19 [History] Polyethylene Glycol 3350 [MiraLAX] 17 gm PO QPM cont 03/06/19 [Rx] Patient Handouts: Chronic Pancreatitis Forms: ED Department Discharge, ED Return to Work/School Form Referrals: PCP,None [Primary Care Provider] - - Discharge Summary/Plan Comment DC Time >30 min.: Yes Discharge Summary/Plan Comment: Pt is planned for discharge home today.Pt's white count is 14.9, she has no other symptoms, this might be related to inflammatory reaction form her pancreatitis, as she has been on levaquin, will continue oral Levaquin 250mg daily for another 4 days. Advised low fat and low protein diet for next 1 wk. rest and hydration. Continue home meds. Followup with her primary care provider next week.. - General Info Functional Status: Reports: Pain Controlled, Tolerating Diet, Ambulating - Review of Systems General: Denies: Fever, Weakness HEENT: Denies: Headaches, Sore Throat, Rhinitis Pulmonary: Reports: Cough. Denies: Sputum Cardiovascular: Denies: Chest Pain, Palpitations, Dyspnea on Exertion, Orthopnea Gastrointestinal: Reports: Flatus. Denies: Abdominal Pain, Diarrhea, Nausea, Vomiting Genitourinary: Denies: Dysuria, Frequency, Urgency Musculoskeletal: Denies: Joint Pain, Joint Swelling Skin: Denies: Bruising, Pruritis, Rash - Patient Data Vitals - Most Recent: Last Vital Signs Temp 98.5 F 03/06/19 07:56 Pulse 58 L 03/06/19 07:56 Resp 18 03/06/19 07:56 BP 150/62 H 03/06/19 07:56 Pulse Ox 96 03/06/19 07:56 Weight - Most Recent: 78.018 kg I&O - Last 24 hours: Intake & Output 03/05/19 03/06/19 03/06/19 22:59 06:59 14:59 Intake Total 640 500 Output Total 8644 526 Balance -1635 -450 Lab Results - Last 24 hrs: Laboratory Results - last 24 hr 03/05/19 03/05/1903/05/19 Range/Units 08:00 08:00 08:00 WBC 14.2 H (4.0-11.0) K/uL RBC 3.81 (3.80-5.80) M/uL Hgb 11.3 L (11.5-16.5) g/dL Hct 34.5 L (37.0-47.0) % MCV 91 (76-96) fL MCH 29.7 (27.0-32.0) pg MCHC 32.8 (31.0-35.0) g/dL RDW 15.7 (11.0-16.0) % Plt Count 150 (150-500) K/uL MPV 9.1 (6.0-10.0) fL Neut % (Auto) 76.0 H (45.0-70.0) % Lymph % (Auto) 13.3 L (20.0-40.0) % [place] % (Auto) 7.4 (3.0-10.0) % Eos % (Auto) 2.8 (1.0-5.0) % Baso % (Auto) 0.5 (0.0-0.5) % Neut # (Auto) 10.81 H (2.00-7.50) K/uL Lymph # (Auto) 1.90 (1.50-4.00) K/uL [place] # (Auto) 1.06 H (0.20-0.80) K/uL Eos # (Auto) 0.40 (0.04-0.40) K/uL Baso # (Auto) 0.07 (0.02-0.10) K/uL Sodium 141 (136-145) mmol/L Potassium 4.0 (3.5-5.1) mmol/L Chloride 107 (98-107) mmol/L Carbon Dioxide 24.2 (21.0-32.0) mmol/L Anion Gap 13.8 (5.0-15.0) mmol/L BUN 14 (8-26) mg/dL Creatinine 0.78 (0.55-1.02) mg/dL Est Cr Clr Drug Dosing 53.14 mL/min Estimated GFR (MDRD) > 60 (>60) MLS/MIN BUN/Creatinine Ratio 17.9 (6-25) Glucose 76 (74-100) mg/dL Calcium 8.0 L (8.5-10.1) mg/dL Lipase 141 D (73-393) U/L Med Orders - Current: Current Medications Acetaminophen (Tylenol) 650 mg PO Q6H PRN PRN Reason: Pain Last Admin: 03/05/19 21:58 Dose: 650 mg Clonidine HCl (Catapres) 0.1 mg PO BID [facility] Last Admin: 03/06/19 07:44 Dose: 0.1 mg Diphenhydramine HCl (Benadryl) 25 mg IVPUSH Q6H PRN PRN Reason: Anxiety Last Admin: 03/05/19 04:30 Dose: 25 mg Hydromorphone HCl (Dilaudid) 1 mg IVPUSH Q4H PRN PRN Reason: SEVERE PAIN (7-10) Last Admin: 03/06/19 05:01 Dose: 1 mg Levofloxacin/Dextrose 250 mg/ (Premix) 50 mls @ 50 mls/hr IV Q24H [facility] Last Admin: 03/06/19 07:37 Dose: 50 mls/hr Ipratropium [place] (Atrovent) 0.5 mg INH BID PRN PRN Reason: Wheezing Last Admin: 03/05/19 22:00 Dose: 0.5 mg Ipratropium [place] (Atrovent) 0.5 mg INH Q6H PRN PRN Reason: Wheezing Levothyroxine Sodium (Levothyroxine) 112 mcg PO ACBREAKFAST [facility] Last Admin: 03/06/19 07:13 Dose: 112 mcg Meclizine HCl (Antivert) 25 mg PO Q6H PRN PRN Reason: Dizziness Non-Formulary Medication (Calcium Carb/Vit D3/Minerals [Calcium 600+D Plus Minerals]) 400 mg PO DAILY [facility] Last Admin: 03/06/19 07:45 Dose: 400 mg Non-Formulary Medication (Hyoscyamine [Hyomax-Sl]) 0.125 mg SL Q4H PRN PRN Reason: Cramping Non-Formulary Medication (Lansoprazole [Lansoprazole]) 30 mg PO BID [facility] Last Admin: 03/05/19 21:54 Dose: Not Given Non-Formulary Medication (Naloxone Hcl [Narcan]) 4 mg NS ASDIRECTED PRN PRN Reason: opioid overdose Ondansetron HCl (Zofran) 4 mg IV Q6H PRN PRN Reason: Nausea/Vomiting Last Admin: 03/05/19 21:04 Dose: 4 mg Ondansetron HCl (Zofran Odt) 8 mg PO TID PRN PRN Reason: Nausea/Vomiting Last Admin: 03/06/19 05:09 Dose: 8 mg Polyethylene Glycol (Miralax) 17 gm PO QPM [facility] Potassium Chloride (Klor-Con M20) 20 meq PO DAILY [facility] Last Admin: 03/06/19 07:44 Dose: 20 meq Sertraline HCl (Zoloft) 100 mg PO BEDTIME [facility] Last Admin: 03/05/19 22:07 Dose: 100 mg Sodium Chloride (Saline Flush) 10 ml FLUSH ASDIRECTED PRN PRN Reason: Keep Vein Open Topiramate (Topamax) 10 mg PO BEDTIME [facility] Last Admin: 03/05/19 21:54 Dose: Not Given Verapamil HCl (Calan) 80 mg PO TID [facility] Last Admin: 03/06/19 07:46 Dose: 80 mg Discontinued Medications Acetaminophen (Tylenol) 650 mg RECTAL NOW ONE Stop: 03/04/19 16:31 Last Admin: 03/04/19 16:45 Dose: 650 mg Acetaminophen (Tylenol) Confirm Administered Dose 650 mg .ROUTE .STK-MED ONE Stop: 03/05/19 10:44 Last Admin: 03/05/19 10:45 Dose: 650 mg Calcium Carbonate (Caltrate 600+D 1500 Mg-400 Units) Confirm Administered Dose 1 tab .ROUTE .STK-MED ONE Stop: 03/06/19 07:35 Last Admin: 03/06/19 07:45 Dose: Not Given Diphenhydramine HCl (Benadryl) Confirm Administered Dose 50 mg .ROUTE .STK-MED ONE Stop: 03/03/19 17:35 Last Admin: 03/03/19 17:44 Dose: Not Given Hydromorphone HCl (Dilaudid) 1 mg IV Q6H PRN PRN Reason: Pain (severe 7-10) Last Admin: 03/03/19 04:10 Dose: 1 mg Sodium Chloride (Normal Saline) 500 mls @ 999 mls/hr IV .BOLUS LEX Last Admin: 03/03/19 03:45 Dose: 999 mls/hr Sodium Chloride (Normal Saline) 1,000 mls @ 150 mls/hr IV ASDIRECTED LEX Last Admin: 03/05/19 06:28 Dose: 150 mls/hr Levofloxacin/Dextrose 500 mg/ (Premix) 100 mls @ 100 mls/hr IV Q24H [facility] Last Admin: 03/03/19 17:39 Dose: 100 mls/hr Levofloxacin/Dextrose (Levaquin In D5w 250 Mg/50 Ml) Confirm Administered Dose 50 mls @ as directed IV .STK-MED ONE Stop: 03/04/19 07:54 Last Admin: 03/04/19 07:58 Dose: 50 mls/hr Levofloxacin/Dextrose (Levaquin In D5w 250 Mg/50 Ml) Confirm Administered Dose 50 mls @ as directed IV .STK-MED ONE Stop: 03/05/19 08:30 Last Admin: 03/05/19 08:35 Dose: Not Given Levofloxacin/Dextrose (Levaquin In D5w 250 Mg/50 Ml) Confirm Administered Dose 50 mls @ as directed IV .STK-MED ONE Stop: 03/06/19 07:27 Last Admin: 03/06/19 07:48 Dose: Not Given Lorazepam (Ativan) Confirm Administered Dose 2 mg .ROUTE .STK-MED ONE Stop: 03/03/19 04:31 Last Admin: 03/03/19 09:55 Dose: Not Given Lorazepam (Ativan) 1 mg IVPUSH ONETIME ONE Stop: 03/03/19 04:55 Last Admin: 03/03/19 04:30 Dose: 1 mg Ondansetron HCl (Zofran Odt) 4 mg PO ONETIME ONE Stop: 03/03/19 02:39 Last Admin: 03/03/19 02:39 Dose: 4 mg Sertraline HCl (Zoloft) 100 mg PO BEDTIME LEX Topiramate (Topamax) 10 mg PO BEDTIME LEX Verapamil HCl (Calan) 80 mg PO TID LEX - Exam General: Reports: Alert, Oriented, Cooperative HEENT: Reports: Pupils Equal, Pupils Reactive, EOMI, Mucous Membr. Moist/[place]: Reports: Supple Lungs: Reports: Clear to Auscultation, Normal Respiratory Effort Cardiovascular: Reports: Regular Rate, Regular Rhythm GI/Abdominal Exam: Normal Bowel Sounds, Soft, Non-Tender, No Organomegaly, No Distention, No Abnormal Bruit, No Mass, Pelvis Stable Extremities: Normal Inspection, Normal Range of Motion, Non-Tender, No Pedal Edema, Normal Capillary Refill Skin: Reports: Warm, Intact
[2019-03-06] MEDS ORDERED: Levofloxacin 500 MG Tab ONE ×2 (09:37→12:50)
[2019-03-06] MEDS: LANSOPRAZOLE 30 MG PO SCH (10:00)
[2019-03-06 11:52] VITALS: BP 143/58
[2019-03-06] MEDS ORDERED: Sertraline 100 MG Tab PO SCH (20:00)
[2019-03-06] MEDS ORDERED: Polyethylene Glycol 3350 Powder 510 GM Bot PO SCH (20:58)
[2019-03-06] MEDS ORDERED: Topiramate 25 MG Tab PO SCH (20:59)
[2019-03-06] MEDS ORDERED: Verapamil 80 MG Tab PO SCH (20:59)
== END 2019-03-06 12:52 | disposition home or self-care (01) | DRG 440 ==
LOC: LB.ED 02:03 → LB.MS 03:08 → UNDOADMIN 03:30
PROVIDERS: ADMIT Family Medicine; ATTEND Family Medicine
DX: K85.90 Acute pancreatitis without necrosis or infection, unspecified (principal); K83.8 Other specified diseases of biliary tract; J44.9 Chronic obstructive pulmonary disease, unspecified; M79.7 Fibromyalgia; R11.0 Nausea; R10.9 Unspecified abdominal pain; Z85.828 Personal history of other malignant neoplasm of skin; F11.11 Opioid abuse, in remission; Z90.49 Acquired absence of other specified parts of digestive tract; Z90.710 Acquired absence of both cervix and uterus; Z88.1 Allergy status to other antibiotic agents; Z88.5 Allergy status to narcotic agent; Z88.0 Allergy status to penicillin; Z88.8 Allergy status to other drugs, medicaments and biological substances
CPT/HCPCS: 36415; 74176; 80048; 80053; 83690; 85025; 94640; 99284; A9270-GY; J1170; J1200; J1956; J2060; J2405; J7030; J7040

== ENCOUNTER 2019-11-23 19:42 | Emergency (ER) | payer MEDICARE ==
[2019-11-23] MEDS ORDERED: Diphtheria,Pertussis(Acell),Tetanus Vaccine 0.5 ML SDV IM ONE (20:00)
--- NOTE | 2019-11-23 21:35 | ER ---
HISTORY OF PRESENT ILLNESS: A 73-year-old lady who comes in with her . She slipped on ice while on their deck at home. She fell. She sustained an injury to the right ear, some pain to the right facial cheek as well, and she hit both of her lower legs on the anterior aspect and has noticed some swelling since. The patient did not have any change in level of consciousness. She denies any other headache or neck pain at this time other than some chronic neck pain, and she has no problems breathing, chest pain, or abdominal pain. The patient is not on any blood thinners. OBJECTIVE: GENERAL APPEARANCE: The patient is awake and alert. She is holding pressure to the right ear with a makeshift dressing. VITAL SIGNS: Reviewed as listed. HEENT: Examining the right ear reveals a vertical laceration on the anterior component of the tragus. With mild pressure, I can separate the wound edges. They are fairly well approximated. It is about 3 cm in length. There is some superficial abrasion injuries to the other lower parts of the external ear and of the right facial cheek. There is no active bleeding at this time. EXTREMITIES: Examining the patient's lower legs reveals mild swelling on the anterior aspect of both lower legs, the right leg just below the knee and the left leg just below the calf level area. SKIN: Intact. NEUROLOGIC: The patient is able to stand and walk with a normal smooth gait. DIAGNOSIS: Laceration to right ear with multiple abrasions/contusion injuries to the right facial cheek and both lower legs. TREATMENT PLAN: Ice packs were applied to the patient's lower legs. I anesthetized the laceration with 1% lidocaine without epi, after which I cleaned it thoroughly. I acquired a sterile field and the wound was sutured. It required 5 sutures of 5-0 Ethilon. The patient tolerated this procedure well. POST-CARE INSTRUCTIONS: Tdap was given to the patient tonight. She is to monitor for infection. Nursing staff will cleanse the wound slightly one more time and apply some antibiotic ointment. If there is any sign of infection, she is to call back for oral antibiotics, and the sutures should come out in 5 to 7 days. She is to use Tylenol for pain control, and continue to apply ice packs to both lower legs frequently for the next day or two. The patient has no further questions. CRS/MODL /[id number]
[2019-11-23 21:57] VITALS: BP 148/85; PULSE 89
== END 2019-11-23 20:26 | disposition home or self-care (01) ==
LOC: LB.ED 19:42
DX: S01.311A Laceration without foreign body of right ear, initial encounter (principal); S00.83XA Contusion of other part of head, initial encounter; S80.12XA Contusion of left lower leg, initial encounter; S80.11XA Contusion of right lower leg, initial encounter; Z23 Encounter for immunization; W00.0XXA Fall on same level due to ice and snow, initial encounter; Y92.008 Other place in unspecified non-institutional (private) residence as the place of occurrence of the external cause
CPT/HCPCS: 12013; 90471; 90715; 99283

== ENCOUNTER 2019-12-24 03:52 | Emergency (ER) | payer MEDICARE ==
[2019-12-24] MEDS ORDERED: Sodium Chloride 0.9% 1,000 ML IV SCH (04:15)
[2019-12-24] MEDS ORDERED: Diltiazem 50 MG/10 ML SDV IVPUSH ONE (04:15)
[2019-12-24] MEDS ORDERED: Sodium Chloride 0.9% 10 ML Syringe FLUSH PRN (04:15)
--- NOTE | 2019-12-24 05:25 | EDM.PDOC ---
ED HPI GENERAL MEDICAL PROBLEM - General Chief Complaint: Chest Pain Stated Complaint: cp Time Seen by Provider: 12/24/19 04:00 - History of Present Illness INITIAL COMMENTS - FREE TEXT/NARRATIVE: Isis presents with sudden onset of "arrythmia". She states that she normally has some issues with bigeminy and what sounds like pvc's, but around 0200 when she was up packing to go to [place], she had the sudden onset of a rapid and irregular pounding in her chest. She initially felt a pressure substernally with radiation into her proximal left arm. Gradually worsened to a peak of 8/10 in severity. Dissipated on the way here. Came in via private vehicle per two friends from [place]. No SOB, fever, recent illness, or neurologic changes. Under all kind of stress due to her being in [place] in the ICU for a prolonged stay. No prior episodes of afib. Ironically, she took a verapamil and aspirin at the time of her sx's. Strong preference for continued outpatient management. - Related Data Allergies Allergy/AdvReac Type Severity Reaction Status Date / Time albuterol Allergy Cannot Verified 03/03/19 03:18 Remember azithromycin Allergy Hives Verified 03/03/19 03:18 Beta-Adrenergic Agents Allergy Hives, Verified 03/03/19 03:18 wheezing/bronchospasm budesonide Allergy Tachycardia, Verified 03/03/19 03:18 cough bupropion Allergy unknown Verified 03/03/19 03:18 buspirone [From BuSpar] Allergy unknown Verified 03/03/19 03:18 cephalexin monohydrate Allergy Other Verified 03/03/19 03:18 [From Keflex] clarithromycin [From Biaxin] Allergy Edema Verified 03/03/19 03:18 codeine Allergy Nausea and Verified 03/03/19 03:18 Vomiting duloxetine Allergy Other Verified 03/03/19 03:18 fentanyl [From Duragesic] Allergy Other Verified 03/03/19 03:18 gabapentin Allergy Other Verified 03/03/19 03:18 hylan G-F 20 Allergy Other Verified 03/03/19 03:18 methylprednisolone Allergy Tachycardia Verified 03/03/19 03:18 morphine Allergy Difficulty Verified 03/03/19 03:18 Breathing neomycin Allergy Hives Verified 03/03/19 03:18 olanzapine Allergy unknown Verified 03/03/19 03:18 Penicillins Allergy Cannot Verified 03/03/19 03:18 Remember pregabalin Allergy Other Verified 03/03/19 03:18 rofecoxib [From Vioxx] Allergy Cannot Verified 03/03/19 03:18 Remember senna Allergy Cannot Verified 03/03/19 03:18 Remember sulfamethoxazole Allergy unknown Verified 03/03/19 03:18 tiotropium Allergy Tachycardia Verified 03/03/19 03:18 [From Spiriva with HandiHaler] trimethoprim Allergy unknown Verified 03/03/19 03:18 valsartan [From Diovan] Allergy Vomiting Verified 03/03/19 03:18 zolpidem [From Ambien] Allergy unkown Verified 03/03/19 03:18 mirtazapine AdvReac Unknown unknown Verified 03/03/19 03:18 hydromorphone [From Dilaudid] AdvReac unknown Verified 03/03/19 08:20 zinc oratate Allergy Other Uncoded 06/08/18 18:40 Home Meds: Home Meds Lansoprazole 30 mg PO BID 03/03/15 [History] Ondansetron 8 mg PO TID PRN 03/03/15 [History] Verapamil HCl 80 mg PO TID 03/03/15 [History] Hyoscyamine [Hyomax-SL] 0.125 mg SL Q4H PRN 04/09/17 [History] Ipratropium [Atrovent HFA] 12.9 gm IH Q6H PRN 04/09/17 [History] Meclizine [Antivert] 25 mg PO Q6H PRN 04/09/17 [History] Potassium Chloride 20 meq PO DAILY 04/09/17 [History] Calcium Carb/Vit D3/Minerals [Calcium 600+D Plus Minerals] 400 mg PO DAILY 05/12 [History] Ergocalciferol (Vitamin D2) [Drisdol] 50,000 unit PO WEEKLY 05/12/18 [History] Naloxone HCl [Narcan] 4 mg NS ASDIRECTED PRN 05/12/18 [History] Ipratropium [Atrovent] 0.5 mg INH BID PRN 03/03/19 [History] Levothyroxine 112 mcg PO ACBREAKFAST 03/03/19 [History] Sertraline [Zoloft] 100 mg PO BEDTIME 03/03/19 [History] Topiramate [Topamax] 10 mg PO BEDTIME 03/03/19 [History] cloNIDine [Catapres] 0.1 mg PO Q12HR 03/03/19 [History] polyethylene glycoL 3350 [MiraLAX] 17 gm PO QPM cont 03/06/19 [Rx] Past Medical History HEENT History: Reports: Cataract Other HEENT History: currently has oral fungal infection Cardiovascular History: Reports: Arrhythmia, Hypertension, Other (See Below) Other Cardiovascular History: tachycardia, leaky heart valve. Respiratory History: Reports: Asthma, COPD Gastrointestinal History: Reports: Pancreatitis, Other (See Below) Other Gastrointestinal History: stones in bile duct Genitourinary History: Reports: Other (See Below) Other Genitourinary History: hx of inabilty to void and self cathaterization [employer] History: Reports: Musculoskeletal History: Reports: Fibromyalgia Psychiatric History: Reports: Depression Endocrine/Metabolic History: Reports: Hypothyroidism Oncologic (Cancer) History: Reports: Basal Cell Carcinoma Dermatologic History: Reports: Other (See Below) Other Dermatologic History: easily bruises, - Infectious Disease History Infectious Disease History: Reports: Chicken Pox, Shingles - Past Surgical History HEENT Surgical History: Reports: None Cardiovascular Surgical History: Reports: None Respiratory Surgical History: Reports: None GI Surgical History: Reports: Cholecystectomy Female Surgical History: Reports: Hysterectomy Musculoskeletal Surgical History: Reports: Other (See Below) Other Musculoskeletal Surgeries/Procedures:: Right hip surgery 2019 Social & Family History - Family History Family Medical History: Noncontributory - Tobacco Use Smoking Status *Q: Unknown Ever Smoked - Caffeine Use Caffeine Use: Reports: Coffee ED ROS GENERAL - Review of Systems Review Of Systems: Comprehensive ROS is negative, except as noted in HPI. ED EXAM, GENERAL - Physical Exam Exam: See Below Exam Limited By: No Limitations General Appearance: Alert, WD/WN, No Apparent Distress Eye Exam: Bilateral Eye: EOMI Ears: Normal External Exam, Hearing Grossly Normal Nose: Normal Inspection Throat/Mouth: Normal Inspection, Normal Voice Head: Atraumatic, Normocephalic Neck: Normal Inspection, Full Range of Motion. No: Thyromegaly Respiratory/Chest: No Respiratory Distress, Lungs Clear, Normal Breath Sounds, No Accessory Muscle Use. No: Crackles, Rales, Wheezing, Stridor Cardiovascular: No Murmur, Tachycardia, Irregularly Irregular. No: Systolic Murmur GI/Abdominal: Normal Bowel Sounds, Soft, Non-Tender Back Exam: Normal Inspection Extremities: Normal Inspection, Non-Tender, No Pedal Edema, Normal Capillary Refill Neurological: Alert, Oriented, Normal Cognition, Normal Gait, No Motor/Sensory Deficits Psychiatric: Normal Affect, Normal Mood Skin Exam: Warm, Dry, Intact Lymphatic: No Adenopathy Course - Orders/Labs/Meds Orders: Active Orders 24 hr Category Date Time Status Cardioversion, Elective [RC] ASDIRECTED Care 12/24/19 04:18 Active EKG Documentation Completion [RC] ASDIRECTED Care 12/24/19 04:15 Active Oxygen Therapy [RC] CONTINUOUS Care 12/24/19 04:15 Active Sodium Chloride 0.9% [Normal Saline] 1,000 ml Med 12/24/19 04:15 Active IV ASDIRECTED Sodium Chloride 0.9% [Saline Flush] Med 12/24/19 04:15 Active 10 ml FLUSH ASDIRECTED PRN Peripheral IV Insertion Adult [OM.PC] Stat Oth 12/24/19 04:15 Ordered EKG 12 Lead [EK] Stat Ther 12/24/19 04:15 Ordered Medication Orders Sodium Chloride (Normal Saline) 1,000 mls @ 125 mls/hr IV ASDIRECTED LEX Sodium Chloride (Saline Flush) 10 ml FLUSH ASDIRECTED PRN PRN Reason: Keep Vein Open Labs: Laboratory Tests 12/24/19 12/24/19 12/24/19 Range/Units 04:24 04:24 04:25 WBC 13.0 H (4.0-11.0) K/uL RBC 4.75 (3.80-5.80) M/uL Hgb 13.9 (11.5-16.5) g/dL Hct 41.5 (37.0-47.0) % MCV 87 (76-96) fL MCH 29.3 (27.0-32.0) pg MCHC 33.5 (31.0-35.0) g/dL RDW 14.7 (11.0-16.0) % Plt Count 278 D (150-500) K/uL MPV 9.0 (6.0-10.0) fL Neut % (Auto) 73.1 H (45.0-70.0) % Lymph % (Auto) 15.9 L (20.0-40.0) % Oliver % (Auto) 8.7 (3.0-10.0) % Eos % (Auto) 1.9 (1.0-5.0) % Baso % (Auto) 0.4 (0.0-0.5) % Neut # (Auto) 9.50 H (2.00-7.50) K/uL Lymph # (Auto) 2.07 (1.50-4.00) K/uL Oliver # (Auto) 1.13 H (0.20-0.80) K/uL Eos # (Auto) 0.25 (0.04-0.40) K/uL Baso # (Auto) 0.05 (0.02-0.10) K/uL PT 9.1 (9.0-11.5) sec INR 0.9 L (1.0-3.5) Sodium 143 (136-145) mmol/L Potassium 4.0 (3.5-5.1) mmol/L Chloride 106 (98-107) mmol/L Carbon Dioxide 25.2 (21.0-32.0) mmol/L Anion Gap 15.8 H (5.0-15.0) mmol/L BUN 18 D (8-26) mg/dL Creatinine 1.01 D (0.55-1.02) mg/dL Est Cr Clr Drug Dosing TNP Estimated GFR (MDRD) 54 L (>60) MLS/MIN BUN/Creatinine Ratio 17.8 (6-25) Glucose 114 H D (74-100) mg/dL Calcium 8.8 (8.5-10.1) mg/dL Magnesium 2.0 (1.8-2.4) mg/dL Total Bilirubin 0.3 (0.0-1.0) mg/dL AST 27 (15-37) U/L ALT 26 (12-78) U/L Alkaline Phosphatase 126 H (46-116) U/L Troponin I < 0.017 (0.000-0.060) ng/mL B-Natriuretic Peptide (0-125) pg/mL Total Protein 7.9 (6.4-8.2) g/dL Albumin 3.6 (3.4-5.0) g/dL Globulin 4.3 H (2.2-4.2) g/dL Albumin/Globulin Ratio 0.8 (0.8-2.0) TSH, Ultra Sensitive 1.563 D (0.358-3.740) uIU/mL 12/24/19 Range/Units 04:25 WBC (4.0-11.0) K/uL RBC (3.80-5.80) M/uL Hgb (11.5-16.5) g/dL Hct (37.0-47.0) % MCV (76-96) fL MCH (27.0-32.0) pg MCHC (31.0-35.0) g/dL RDW (11.0-16.0) % Plt Count (150-500) K/uL MPV (6.0-10.0) fL Neut % (Auto) (45.0-70.0) % Lymph % (Auto) (20.0-40.0) % Oliver % (Auto) (3.0-10.0) % Eos % (Auto) (1.0-5.0) % Baso % (Auto) (0.0-0.5) % Neut # (Auto) (2.00-7.50) K/uL Lymph # (Auto) (1.50-4.00) K/uL Oliver # (Auto) (0.20-0.80) K/uL Eos # (Auto) (0.04-0.40) K/uL Baso # (Auto) (0.02-0.10) K/uL PT (9.0-11.5) sec INR (1.0-3.5) Sodium (136-145) mmol/L Potassium (3.5-5.1) mmol/L Chloride (98-107) mmol/L Carbon Dioxide (21.0-32.0) mmol/L Anion Gap (5.0-15.0) mmol/L BUN (8-26) mg/dL Creatinine (0.55-1.02) mg/dL Est Cr Clr Drug Dosing Estimated GFR (MDRD) (>60) MLS/MIN BUN/Creatinine Ratio (6-25) Glucose (74-100) mg/dL Calcium (8.5-10.1) mg/dL Magnesium (1.8-2.4) mg/dL Total Bilirubin (0.0-1.0) mg/dL AST (15-37) U/L ALT (12-78) U/L Alkaline Phosphatase (46-116) U/L Troponin I (0.000-0.060) ng/mL B-Natriuretic Peptide 78 (0-125) pg/mL Total Protein (6.4-8.2) g/dL Albumin (3.4-5.0) g/dL Globulin (2.2-4.2) g/dL Albumin/Globulin Ratio (0.8-2.0) TSH, Ultra Sensitive (0.358-3.740) uIU/mL Meds: Medications Generic Name Dose Route Start Last Admin Trade Name Freq PRN Reason Stop Dose Admin Sodium Chloride 1,000 mls @ 125 mls/hr 12/24/19 04:15 Normal Saline IV ASDIRECTED LEX Sodium Chloride 10 ml 12/24/19 04:15 Saline Flush FLUSH ASDIRECTED PRN Keep Vein Open Discontinued Medications Generic Name Dose Route Start Last Admin Trade Name Freq PRN Reason Stop Dose Admin Diltiazem HCl 10 mg 12/24/19 04:15 Cardizem IVPUSH 12/24/19 04:16 ONETIME ONE - Re-Assessments/Exams Free Text/Narrative Re-Assessment/Exam: 12/24/19 05:31 EKG confirmed a fib/flutter discussed treatment options in detail she expressed preference for electrical cardioversion, but spontaneously converted prior to this occurring wished her empathy in terms of making medical decisions on behalf of her we did discuss the potential need for anticoagulation she will address with her doctor certainly could also benefit from an echo at some point, although BNP would seem to confer absence of structural heart changes [id number] = 3 which is indicative of care home benefit from anticoagulation (as we discussed) Departure - Departure Time of Disposition: 05:20 Disposition: Home, Self-Care 01 Condition: Good Clinical Impression: Atrial fib/flutter, transient - Discharge Information Instructions: Atrial Fibrillation, [id number] Referrals: PCP,None [Primary Care Provider] - Additional Instructions: Talk with your physician about going on a blood thinner to minimize your risk of stroke. Good luck with everything regarding your . Return with any recurrent issues or other concerns. - My Orders Last 24 Hours: My Active Orders 12/24/19 04:15 EKG Documentation Completion [RC] ASDIRECTED Oxygen Therapy [RC] CONTINUOUS Sodium Chloride 0.9% [Normal Saline] 1,000 ml IV ASDIRECTED Sodium Chloride 0.9% [Saline Flush] 10 ml FLUSH ASDIRECTED PRN Peripheral IV Insertion Adult [OM.PC] Stat EKG 12 Lead [EK] Stat 12/24/19 04:18 Cardioversion, Elective [RC] ASDIRECTED - Assessment/Plan Last 24 Hours: My Active Orders 12/24/19 04:15 EKG Documentation Completion [RC] ASDIRECTED Oxygen Therapy [RC] CONTINUOUS Sodium Chloride 0.9% [Normal Saline] 1,000 ml IV ASDIRECTED Sodium Chloride 0.9% [Saline Flush] 10 ml FLUSH ASDIRECTED PRN Peripheral IV Insertion Adult [OM.PC] Stat EKG 12 Lead [EK] Stat 12/24/19 04:18 Cardioversion, Elective [RC] ASDIRECTED
[2019-12-24 06:18] VITALS: BP 133/61; PULSE 127
== END 2019-12-24 05:35 | disposition home or self-care (01) ==
LOC: LB.ED 03:52
DX: R07.2 Precordial pain (principal); I10 Essential (primary) hypertension; J44.9 Chronic obstructive pulmonary disease, unspecified; F32.9 Major depressive disorder, single episode, unspecified; E03.9 Hypothyroidism, unspecified; Z88.1 Allergy status to other antibiotic agents; Z88.8 Allergy status to other drugs, medicaments and biological substances; Z88.5 Allergy status to narcotic agent; Z88.0 Allergy status to penicillin; Z88.2 Allergy status to sulfonamides; Z79.899 Other long term (current) drug therapy
CPT/HCPCS: 36415; 80053; 83735; 83880; 84443; 84484; 85025; 85610; 93005; 99284; 99285-25

== ENCOUNTER 2020-07-04 19:54 | Emergency (ER) | payer MEDICARE ==
[2020-07-04] MEDS ORDERED: Ketorolac 60 MG/2 ML SDV IM ONE (21:04)
[2020-07-04] MEDS: fentaNYL 100 MCG/2 ML SDV IVPUSH PRN ×2 (21:30→21:45)
[2020-07-04] MEDS ORDERED: LORazepam 2 MG/ML SDV IVPUSH ONE (22:43)
[2020-07-04] MEDS ORDERED: fentaNYL 100 MCG/2 ML SDV IVPUSH ONE (22:43)
--- NOTE | 2020-07-04 23:59 | CR ---
CLINICAL DATA: FALL. LEFT HIP, 2019: No priors. There is an impacted, displaced, subcapital femoral neck fracture. No other acute abnormalities. Job: [id number] MTDD
[2020-07-05 00:06] VITALS: BP 147/74; PULSE 108
[2020-07-05] MEDS ORDERED: LORazepam 2 MG/ML SDV ONE (03:21)
[2020-07-05] MEDS ORDERED: fentaNYL 100 MCG/2 ML SDV ONE (03:21)
[2020-07-05] MEDS ORDERED: LORazepam 2 MG/ML SDV IVPUSH ONE (04:05)
[2020-07-05] MEDS ORDERED: fentaNYL 100 MCG/2 ML SDV IVPUSH ONE (04:06)
--- NOTE | 2020-07-05 16:13 | ER ---
HISTORY OF PRESENT ILLNESS: A 74-year-old lady who comes in by ambulance after falling in her backyard. [place]. She is complaining of severe left hip pain, and she tells me "I think it is broken." She had actually had fallen a couple of years ago and broken the right hip. The patient states this feels the same, only the pain is worse. She denies any other injuries. The patient states she was doing fine before she went for this walk. They are planning on leaving for [place] tomorrow. States she was taking a walk to enjoy her backyard and the scenery. OBJECTIVE: GENERAL APPEARANCE: The patient is awake and alert. She is uncomfortable from the pain. VITAL SIGNS: Reviewed. Blood pressure 147/74, pulse 108, she is afebrile, O2 saturation 98%. MUSCULOSKELETAL: Examining the patient's left hip and leg reveals the skin is intact. I do not see any bruising or break in the skin. There is no bleeding. The left foot is slightly externally rotated. LABORATORY AND X-RAY DATA: X-ray was obtained of the left hip showing a fracture of the femoral neck with a small amount of displacement. ED COURSE: The patient was given Toradol 60 mg initially IM. We then started an IV, and she was given fentanyl starting with 50 mcg the 1st dose which helped some with the pain. We then increased it to 100 mcg, and this seemed to control her pain fairly well for a while. Arrangements were then started on transferring the patient, which took several hours to accomplish. The patient was monitored here during the duration of this waiting. She was transferred to [facility] in [place]. Over the course of her stay, she did require 1 more injection of fentanyl shortly before leaving, and I also gave her Ativan 1 mg. She was complaining of her muscles in her legs feeling very tight, and this relaxed the patient. She was able to get some sleep. We repeated the dose of Ativan right before she left our facility. She was transferred by ground. Her leg was supported with an air splint since the time she came out of x-ray. We managed to obtain good pain control with the treatment measures, and the patient was stable upon discharge. Dx: Left hip fracture. CRS/MODL /[id number] MTDD
== END 2020-07-05 05:15 ==
LOC: LB.ED 19:54
DX: S72.012A Unspecified intracapsular fracture of left femur, initial encounter for closed fracture (principal); Z20.828 Contact with and (suspected) exposure to other viral communicable diseases; W01.0XXA Fall on same level from slipping, tripping and stumbling without subsequent striking against object, initial encounter
CPT/HCPCS: 51702; 73502; 96372; 96374; 96375; 96376; 99285; J1885; J2060; J3010; U0002; 99284